=== PATIENT | female | born 1965 | race Caucasian/White ===

== ENCOUNTER 2017-02-19 11:22 | Observation (INO) ==
[2017-02-19] MEDS ORDERED: Nitroglycerin 0.4 MG TAB.SUBL SL ONE (11:47)
[2017-02-19] MEDS ORDERED: Ondansetron 4 MG/2 ML VIAL IVP ONE (11:47)
[2017-02-19] MEDS ORDERED: 0.9 % Sodium Chloride 1,000 ML IVC ONE ×2 (11:49→12:50)
--- NOTE | 2017-02-19 11:52 | Emergency Department Note ---
Disposition Clinical Impression: Tobacco abuse Chest pain Qualifiers: Chest pain type: unspecified Qualified Code(s): R07.9 - Chest pain, unspecified Disposition: Admitted As Inpatient Condition: Fair Referrals: Jatin Mckoy MD [Primary Care Provider] - Forms: ED Satisfaction Letter Chest Pain HPI - General Chief Complaint: ED Chest Pain Stated Complaint: chest pain Time Seen by Provider: 02/19/17 11:36 Source: patient Mode of arrival: ambulatory Limitations: no limitations Vital Signs Reviewed: Yes Nursing Notes Reviewed: Yes - History of Present Illness HPI Narrative: 51-year-old female history of hypertension, diabetes, tobacco use and obesity presents for evaluation of chest pain. Patient notes the chest pain started 45 minutes prior to arrival. Noted be nonexertional retrosternal slightly more left-sided with radiation to her back. Patient denies history of previous. Also notes some numbness and tingling in left arm. Patient was concerned about a heart attack. Patient noted some shortness of breath. Pain worse with deep breathing. Reports nausea vomiting with no diaphoresis. Patient took nitroglycerin in route as well as 4 baby aspirin. Noted some slight relief with nitroglycerin. Patient denies any abdominal pain. No fevers or cough. Denies a history of ACS or stents. States that she has had a stress test done in the remote past. Patient also had a heart catheter performed as well without any clear intervention at that time Severity scale (1-10): 8 - Related Data Home Medications Medication Instructions Recorded Confirmed Aripiprazole [Abilify] 5 mg PO QAM 11/05/15 09/28/16 Diclofenac Sodium [Voltaren] 75 mg PO BID PRN 11/05/15 09/28/16 Duloxetine HCl [Cymbalta] 60 mg PO QAM 11/05/15 09/28/16 Lisinopril [Zestril] 10 mg PO QAM 11/05/15 09/28/16 Metoprolol [Lopressor] 150 mg PO BID 11/05/15 09/28/16 Pravastatin Sodium [Pravachol] 40 mg PO QPM 11/05/15 09/28/16 Ropinirole HCl [Requip] 0.5 mg PO HS 11/05/15 09/28/16 Aspirin [Adult Low Dose Aspirin EC] 81 mg PO DAILY 12/04/15 09/28/16 Gabapentin [Neurontin] 600 mg PO TID 12/04/15 09/28/16 Isosorbide MONOnitrate (24 HR) 30 mg PO DAILY 12/04/15 09/28/16 [Imdur] Furosemide [Lasix] 20 mg PO DAILY PRN 07/23/16 09/28/16 Metolazone [Zaroxolyn] 5 mg PO DAILY 07/23/16 09/28/16 Oxybutynin Chloride [Ditropan Xl] 10 mg PO DAILY 07/23/16 09/28/16 HYDROcodone/Acet 7.5/325 mg [[place] 1 tab PO TID PRN 09/28/16 09/28/16 7.5-325 mg] Oxygen 2 l NS HS PRN 09/28/16 09/28/16 Previous Rx's Medication Instructions Recorded Torsemide [Demadex] 20 mg PO DAILY #5 tablet 08/07/16 Naproxen [Naprosyn] 500 mg PO BID PRN #20 tablet 10/15/16 Allergies Allergy/AdvReac Type Severity Reaction Status Date / Time tramadol Allergy Rash Verified 09/28/16 07:48 All systems ED: reviewed and negative except as stated. Constitutional: Reports: as per HPI. Denies: fever Eyes: Reports: as per HPI ENT ED: Reports: as per HPI Cardiovascular: Reports: as per HPI, chest pain Respiratory: Reports: as per HPI, dyspnea. Denies: cough Gastrointestinal: Reports: as per HPI, nausea, vomiting Genitourinary: Reports: as per HPI Musculoskeletal: Reports: as per HPI Integumentary: Reports: as per HPI Neurological: Reports: as per HPI Psychiatric: Reports: as per HPI Endocrine: Reports: as per HPI Hematological/Lymphatic: Reports: as per HPI Chest Pain PMH - Past Medical History Medical history: Reports: diabetes, hyperlipidemia, hypertension Surgical history: Reports: breast surgery, hysterectomy, other Psychiatric history: Reports: anxiety, depression - Social History Smoking Status: Current every day smoker Alcohol use: Reports: occasionally Drug use: Reports: none Physical Exam - General Limitations: no limitations General appearance: alert, in no apparent distress - Head Head exam: atraumatic, normocephalic, normal inspection - Eye Eye exam: Present: normal appearance, PERRL, EOMI - ENT ENT exam: normal exam, mucous membranes moist - Neck Neck exam: Present: normal inspection, trachea midline - Chest Chest inspection: Present: normal inspection, symmetric chest wall rise, tenderness (Some reproducible tenderness however pain is slightly different. No overlying rash.) - Respiratory Respiratory exam: Present: normal lung sounds bilaterally. Absent: respiratory distress - Cardiovascular Cardiovascular exam: Present: regular rate, normal rhythm - Abdominal Exam Abdominal exam: Present: soft, Non-Tender - Extremities Exam Extremities exam: Present: normal inspection. Absent: pedal edema - Back Exam Back exam: Present: normal inspection. Absent: CVA tenderness (R), CVA tenderness (L) - Neurological Exam Neurological exam: Present: alert, oriented X3 - Skin Skin exam: Present: warm, dry, intact, normal color Course Course Narrative: Patient intubated the treatment area. Patient appears in discomfort. Patient does have risk factors for coronary artery disease. Patient will get a cardiac evaluation including a d-dimer. As the patient is low risk [place] and cannot be PERC out. Patient's pain was also slightly relieved by nitroglycerin. Will trial nitroglycerin in the ER. Chest x-ray, EKG, lab work disposition pending. - Reevaluation(s) Reevaluation #1: Patient seen and examined. Patient notes the pain has improved. Patient's blood pressure did drop slightly to the nitroglycerin. Patient will be admitted to [facility] for further evaluation and monitoring of her cardiac evaluation. Time: 12:50 Vital Signs Temperature 97.8 F 02/19/17 11:30 Pulse Rate 74 02/19/17 11:30 Respiratory Rate 16 02/19/17 11:30 Blood Pressure 108/75 02/19/17 11:30 O2 Sat by Pulse Oximetry 96 02/19/17 11:30 Temperature 97.8 F 02/19/17 11:30 Pulse Rate 74 02/19/17 11:30 Respiratory Rate 16 02/19/17 11:30 Blood Pressure 108/75 02/19/17 11:30 O2 Sat by Pulse Oximetry 96 02/19/17 11:30 Oxygen Delivery Oxygen Delivery Room Air Chest Pain - MDM Narrative Medical decision making narrative: 51-year-old female patients for evaluation of chest pain. Patient notes that the chest pain started 45 minutes prior to arrival. Noted be nonexertional with radiation in the back and numbness and tingling in the left arm. No history of this in the past. Patient has had a cardiology evaluation with catheter and stress test in the remote past but nothing recent. Patient's pain did slightly improve with nitroglycerin. Patient had basic lab work performed including an troponin which was negative for the 45 minutes of nonexertional chest pain. Patient also had a d-dimer slightly elevated however patient's symptoms are less likely pulmonary related. Patient will be admitted to the hospitalist service for further evaluation and monitoring. - Lab Data Lab results reviewed: Yes I reviewed the patient's lab results. Result diagrams: 02/19/17 11:45 02/19/17 11:45 Lab Results 02/19/17 02/19/17 02/19/17 Range/Units 11:45 11:45 11:45 WBC 10.4 (4.3-11.1) K/mcL RBC 5.09 H (3.82-4.97) M/mcL Hgb 13.9 (11.5-15.4) g/dL Hct 43.5 (35.3-44.9) % MCV 85.5 (83.0-100.0) fL MCH 27.3 L (28.0-33.3) pg MCHC 32.0 (31.6-35.5) g/dL RDW 14.7 H (11.5-14.5) % Plt Count 309 (140-400) K/mcL MPV 9.5 (9.4-12.4) fL Immature Gran % 0.7 (0-4) % Seg Neutrophils % 58.0 % Lymphocytes % 27.7 % Monocytes % 7.0 % Eosinophils % 5.4 % Basophils % 1.2 % Neutrophils # 6.1 (1.6-8.9) K/mcL Lymphocytes # 2.9 (0.6-4.6) K/mcL Monocytes # 0.7 (0.0-1.3) K/mcL Eosinophils # 0.6 (0.0-0.6) K/mcL Basophils # 0.1 (0.0-0.2) K/mcL D-Dimer 576 H (0-500) ng/mLFEU Sodium 137 (136-145) mEq/L Potassium 4.3 (3.5-4.5) mEq/L Chloride 99 (98-109) mEq/L Carbon Dioxide 28 (19-29) mEq/L BUN 13 (7-20) mg/dL Creatinine 0.74 (0.57-1.11) mg/dL Est GFR ( Amer) > 60 (> 60) Est GFR (Non-Af Amer) > 60 (> 60) BUN/Creatinine Ratio 18 (6-26) Glucose 75 (70-99) mg/dL Calculated Osmolality 283 (280-300) Calcium 9.1 (8.6-10.8) mg/dL Troponin I (0-0.03) ng/mL 02/19/17 Range/Units 11:45 WBC (4.3-11.1) K/mcL RBC (3.82-4.97) M/mcL Hgb (11.5-15.4) g/dL Hct (35.3-44.9) % MCV (83.0-100.0) fL MCH (28.0-33.3) pg MCHC (31.6-35.5) g/dL RDW (11.5-14.5) % Plt Count (140-400) K/mcL MPV (9.4-12.4) fL Immature Gran % (0-4) % Seg Neutrophils % % Lymphocytes % % Monocytes % % Eosinophils % % Basophils % % Neutrophils # (1.6-8.9) K/mcL Lymphocytes # (0.6-4.6) K/mcL Monocytes # (0.0-1.3) K/mcL Eosinophils # (0.0-0.6) K/mcL Basophils # (0.0-0.2) K/mcL D-Dimer (0-500) ng/mLFEU Sodium (136-145) mEq/L Potassium (3.5-4.5) mEq/L Chloride (98-109) mEq/L Carbon Dioxide (19-29) mEq/L BUN (7-20) mg/dL Creatinine (0.57-1.11) mg/dL Est GFR ( Amer) (> 60) Est GFR (Non-Af Amer) (> 60) BUN/Creatinine Ratio (6-26) Glucose (70-99) mg/dL Calculated Osmolality (280-300) Calcium (8.6-10.8) mg/dL Troponin I 0.00 (0-0.03) ng/mL - Radiology Data Radiology results reviewed: Yes I reviewed the patient's radiology results. Chest X-Ray 02/19/17 11:47 IMPRESSION: No acute cardiopulmonary process. D/ /19/2017 12:18:13 Gianfranco Acosta MD / [email or web address] Interpreting Provider: Gianfranco Acosta MD - EKG Data EKG attestation: Yes I reviewed and interpreted this EKG. EKG shows normal: sinus rhythm Rate: normal Rhythm: NSR [place]/QRS: normal T wave inversions noted in: v1 (Flattening) Interpretation: no acute changes, unchanged when compared to prior tracing (date ) (11/20/16), nonspecific ST-T wave changes Heart Score - Score History: Moderately Suspicious EKG: Normal Age: 45-65 Risk Factors: Equal/Greater than 3 risk factor or history of atherosclerotic disease Troponin: Less than normal limit HEART Score Total: 4 S.B.A.R. - S.B.A.R. Situation: Demographics Assessment: Vital Signs, Course and respsone to treatment, Patient/Family Expectation Recommendation: Barrier(s) to disposition, Recommendation based on pending studies, treatments, or consults S.B.A.RMarci Report Given to: Dr. Aniyah Harrell Repor Time: 12:59
[2017-02-19 12:12] LABS: Basophils # 0.1 K/mcL (0.0-0.2); Basophils % 1.2 %; Eosinophils # 0.6 K/mcL (0.0-0.6); Eosinophils % 5.4 %; Hematocrit 43.5 % (35.3-44.9); Hemoglobin 13.9 g/dL (11.5-15.4); Immature Granulocytes % 0.7 % (0-4); Lymphocytes # 2.9 K/mcL (0.6-4.6); Lymphocytes % 27.7 %; Mean Corpuscular Hemoglobin 27.3 pg (28.0-33.3); Mean Corpuscular Volume 85.5 fL (83.0-100.0); Mean Platelet Volume 9.5 fL (9.4-12.4); Monocytes # 0.7 K/mcL (0.0-1.3); Neutrophils # 6.1 K/mcL (1.6-8.9); Platelet Count 309 K/mcL (140-400); Red Blood Count 5.09 M/mcL (3.82-4.97); Red Cell Distribution Width 14.7 % (11.5-14.5)
[2017-02-19 12:25] LABS: BUN/Creatinine Ratio 18 (6-26); Blood Urea Nitrogen 13 mg/dL (7-20); Calcium 9.1 mg/dL (8.6-10.8); Carbon Dioxide 28 mEq/L (19-29); Chloride 99 mEq/L (98-109); Glucose 75 mg/dL (70-99); Osmolality,Calculated 283 (280-300); Potassium 4.3 mEq/L (3.5-4.5); Sodium 137 mEq/L (136-145); eGFR For African Americans > 60 (> 60); eGFR For Non-African Americans > 60 (> 60)
--- NOTE | 2017-02-19 12:38 | Emergency Department Note ---
START Narrative - START START: I examined this patient and my medical decision-making was reviewed with the MACHINE CELL TUBER/PA/Advanced Practice Nurse/Resident Physician. I agree with the documented findings, disposition and treatment plan as described except to the extent set forth below. ED attending note: Patient seen with emergency medicine resident Dr. Miles. Please see a copy of his note for details of the H&P, evaluation, management and disposition of this patient. We independently had [id number] contact with the patient Briefly: 21-year-old female hard score of 4 presents with chest pain heavy smoker. D-dimer slightly elevated at 570. Chest x-ray EKG read by radiology as no acute pulmonary disease and no acute ischemic changes on the EKG. Patient be admitted for ACS workup. Feel her risk of PE is still low. Awaiting callback from hospitalist for admission.
[2017-02-19] MEDS ORDERED: Ondansetron 4 MG/2 ML VIAL IVP PRN (13:16)
[2017-02-19] MEDS ORDERED: Naloxone 0.4 MG/ML INJ IVP PRN (13:16)
[2017-02-19] MEDS ORDERED: Nitroglycerin 0.4 MG TAB.SUBL SL PRN (13:23)
[2017-02-19] MEDS ORDERED: Dextrose Gel 15 GM PO PRN ×2 (13:30)
[2017-02-19] MEDS ORDERED: D5% in Water 1,000 ML IVC PRN (13:30)
[2017-02-19] MEDS ORDERED: *HR* Dextrose 50 % in Water (Syg) 50 ML SYRINGE IVP PRN (13:30)
--- NOTE | 2017-02-19 13:38 | Internal Med History&Physical ---
<Evan Gomez - Last Filed: 02/19/17 14:06> Date of Encounter: 02/19/17 Time of Encounter: 13:00 Assessment and Plan (1) Chest pain Current visit: Yes Status: Acute Assess: Ms. Johnston presents with chief complaint of chest pain that she states feels like a pressure and sharp pain that radiates to her left neck and left arm. She states this began at 11:00 today. She also reports she has had similar pain like this previously but not to this extent or level of pain. Patient is currently followed by Dr. Beaulieu. Plan: Continuous cardiac telemetry Nuclear stress test ordered Repeat EKG Nitroglycerin PRN ordered Continue aspirin therapy Continue Lopressor Continue Lisinopril Lipitor 20 mg daily ordered Heparin 5,000 units SQ Q8 ordered at DVT prophylaxis Possible cardiology consult based on results of nuclear stress test Monitor patient and vital signs Follow-up labs ordered, including D-Dimer Qualifiers: Chest pain type: unspecified Qualified Code(s): R07.9 - Chest pain, unspecified (2) Exertional dyspnea Current visit: Yes Status: Acute Assess: Patient presents with shortness of breath related to chest pain. Patient states shortness of breath is with or without exertion. Patient uses home oxygen PRN and states she is supposed to use CPAP at night refuses due to anxiety. Plan: O2 @ 2L ordered with titration if SpO2 <92% Monitor SpO2 and vital signs 40 mg Lasix daily ordered for lower extremity edema Falls precautions and up with assist only (3) Hyperlipidemia Current visit: Yes Status: Chronic Assess: Patient presents with history of chronic hyperlipidemia. Plan: Lipid panel ordered Lipitor 20 mg daily ordered Continue Pravastatin Follow-up labs ordered Qualifiers: Hyperlipidemia type: unspecified Qualified Code(s): E78.5 - Hyperlipidemia , unspecified (4) Hypertension Current visit: Yes Status: Chronic Assess: Patient presents with history of chronic hypertension. Plan: Continue Lopressor Continue Lisinopril Monitor patient's vital signs Qualifiers: Hypertension type: essential hypertension Qualified Code(s): I10 - Essential (primary) hypertension (5) Tobacco abuse Current visit: Yes Status: Chronic Assess: Patient presents with history of chronic tobacco abuse. Plan: Tobacco cessation education provided to patient Nicotine patch 14 mg ordered (6) DVT prophylaxis Current visit: Yes Status: Acute Assess: Patient to receive DVT prophylaxis due to current chest pain, cardiac risk factors, and inpatient bed rest status. Plan: Heparin 5,000 units SQ Q8 ordered Internal Medicine - H&P: HPI Chief complaint: Chest pain w/SOB Admitted From: Emergency Dept Plans for Post Hospital Care: Home History of present illness: Ms. Johnston is a 51 year old female presents from the ED with chief complaint of chest pain that she states feels like a pressure and sharp pain that radiates to her left neck and left arm. She states this began at 11:00 today. She also reports she has had similar pain like this previously but not to this extent or level of pain. Mrs. Johnston reports that she is also short of breath and has been experiencing bilateral pedal edema 2-3x per week. Patient is currently on 20 mg of Lasix daily. He states that chest pain is nonexertional in nature and is somewhat relieved with nitroglycerin. She also reports she has had nausea and vomiting with chest pain and her reports she became syncopal in the car on the way to the ED. Patient has a history of diabetes, hyperlipidemia, hypertension, and previous chest pain. Patient's current d-dimer level is 576. Initial troponin is 0.00. Patient had heart catheterization performed 2 years ago with no stent placement. Patient also had nuclear stress test approximately 1 year ago. Patient is followed by Dr. Beaulieu. Patient is a current smoker stating she smokes 1 pack per day. Patient also reports constant back pain related to back surgery which radiates down to her right leg. Patient to be admitted as observation status with continuous cardiac telemetry, troponins trended 2 nuclear stress test ordered for 02/20/17, bilateral blood pressures, nitroglycerin when necessary, and supplemental oxygen administration. Possible cardiology consult will be based on results of nuclear stress test. Patient to be monitored closely. Past Med Surg Social Fam HX - Past Medical History Medical history: diabetes, hyperlipidemia, hypertension Psychiatric history: anxiety, depression - Past Surgical History Surgical History: breast surgery, hysterectomy, other - Social History Smoking Status: Current every day smoker Packs per day: 1 PPD Smokeless Tobacco Status: No Alcohol use: occasionally Drug use: none Occupational status: unemployed Current living situation: Home, With Family Activity Level: Uses cane/walker Recent Out of Country Travel Within the Last 8 Weeks: No Exposure or Possible Exposure to Illness During Travel: No - Family History Father Race: Family Member Ethnicity: Non- Living Status: Age at : 77 Cause of : Non-EtOH cirrhosis Hx Family GI Disorders: Yes (non-alcoholic cirrhosis) Mother Race: Family Member Ethnicity: Non- Living Status: Still Living Hx Family Cardiac Disorders: Yes (HTN, Afib) Brother Race: Family Member Ethnicity: Non- Living Status: Still Living Hx Family Respiratory Disorders: Yes (COPD) Hx Family Endocrine Disorder: Yes (DM) Internal Medicine - H&P: Meds Aripiprazole [Abilify] 5 mg PO QAM 11/05/15 [History] Duloxetine HCl [Cymbalta] 60 mg PO QAM 11/05/15 [History] Lisinopril [Zestril] 10 mg PO QAM 11/05/15 [History] Metoprolol [Lopressor] 150 mg PO BID 11/05/15 [History] Pravastatin Sodium [Pravachol] 40 mg PO QPM 11/05/15 [History] Ropinirole HCl [Requip] 0.5 mg PO HS 11/05/15 [History] Aspirin [Adult Low Dose Aspirin EC] 81 mg PO DAILY 12/04/15 [History] Gabapentin [Neurontin] 600 mg PO TID 12/04/15 [History] Isosorbide MONOnitrate (24 HR) [Imdur] 30 mg PO DAILY 12/04/15 [History] Furosemide [Lasix] 20 mg PO DAILY PRN 07/23/16 [History] Metolazone [Zaroxolyn] 5 mg PO DAILY 07/23/16 [History] Oxybutynin Chloride [Ditropan Xl] 10 mg PO DAILY 07/23/16 [History] Oxygen 2 l NS HS PRN 09/28/16 [History] HYDROcodone/Acet 5/325 mg [[place] 5-325 mg] 1 tab PO Q6H PRN 02/19/17 [History] Omeprazole [PriLOSEC] 40 mg PO DAILY 02/19/17 [History] Potassium Chloride [K-Tab ER] 10 meq PO DAILY 02/19/17 [History] Trazodone HCl 250 mg PO HS 02/19/17 [History] metFORMIN [Glucophage] 1,000 mg PO BID 02/19/17 [History] Allergies tramadol Allergy (Verified 09/28/16 07:48) Rash All Systems PM: A 10-system review of systems was performed and is negative for pertinent findings except as documented above in the HPI. - Constitutional Constitutional: no chills, no fever(s), no night sweats - EENT Eyes: no change in vision, no discharge, no pain, no photophobia Ears: no ear discharge, no ear pain, no tinnitus Nose, mouth and throat: no dysphagia, no nasal discharge, no neck pain, no sore throat - Breasts Breasts: as per HPI - Cardiovascular Cardiovascular ROS IM: as per HPI, chest pain, dyspnea, dyspnea on exertion, edema, syncope - Respiratory Respiratory: dyspnea, dyspnea on exertion - Gastrointestinal Gastrointestinal: no abdominal pain, no diarrhea, no hematemesis, no hematochezia, no melena, no nausea, no vomiting - Genitourinary Genitourinary: no change in urinary stream, no dysuria, no flank pain, no hematuria Menstruation: as per HPI - Musculoskeletal Musculoskeletal ROS IM: as per HPI, back pain, no numbness, no tingling - Integumentary Integumentary IM: no rash, no unusual bruising - Neurological Neurological ROS: as per HPI, numbness, tingling, no confusion, no convulsions, no focal weakness, no tremor(s) - Psychiatric Psychiatric: as per HPI - Endocrine Endocrine IM: as per HPI - Hematologic/Lymphatic Hematologic/Lymphatic: no easy bruising - Allergic/Immunologic Allergic/Immunologic: as per HPI - Constitutional Vitals: Temp Pulse Resp BP Pulse Ox 97.8 F 74 16 108/75 96 02/19/17 11:30 02/19/17 11:30 02/19/17 11:30 02/19/17 11:30 02/19/17 11:30 General appearance: Present: cooperative, mild distress, A&O X 3, morbidly obese , pleasant, answers questions appropriately - Head Head exam: Present: atraumatic, normocephalic - Eye Eye exam: Present: PERRL, conjuntiva pink, sclera anicteric Pupils: Present: PERRL - ENT ENT exam: Present: normal exam, normal external ear exam - Neck Neck exam general surgery: Present: supple, trachea midline. Absent: lymphadenopathy - Respiratory Respiratory exam: Present: CTAB. Absent: accessory muscle use, rales, rhonchi, wheezes - Cardiovascular Cardiovascular exam: Present: RRR, +S1, +S2. Absent: diastolic murmur, gallop, rubs, systolic murmur - GI/Abdominal GI/Abdominal exam: Present: normal bowel sounds, soft, no peritoneal signs. Absent: distended, tenderness - Rectal Rectal exam: Present: deferred - Additional comments: exam deferred. - Extremities Exam Extremities exam: Present: normal inspection, warm, radial pulses palpable and symetrical. Absent: calf tenderness, cyanotic, pedal edema - Back Exam Back exam: Present: normal inspection, tenderness - Neurological Exam Neurological exam: Present: CN II-XII intact, oriented X3, no focal deficits. Absent: pronater drift, facial droop, speech deficit - Psychiatric Psychiatric exam: Present: normal affect, normal mood - Skin Skin exam: Present: dry, intact Internal Med - H&P Results - Labs CBC & Chem 7: 02/19/17 11:45 02/19/17 11:45 - EKG Data EKG shows normal: sinus rhythm - EKG Data Prior EKG available for review: yes When compared to previous EKG: there is no significant change EKG comments: 02/19/17 13:46 EKG dated 11/20/16 shows sinus rhythm with low QRS voltage in precordial leads [ QRS deflection < 1.0 mV in chest leads] EKG dated 02/19/17 shows sinus rhythm with low QRS voltage in precordial leads [ QRS deflection < 1.0 mV in chest leads] - Diagnostic Studies Chest x-ray Additional comments: 1-View CXR of chest dated 02/19/17 shows cardiomediastinal silhouette is normal in size. Lungs are clear. No pleural effusion or pneumothorax is present. Overall Impression: No acute cardiopulmonary process. <Florentin Hankins H - Last Filed: 02/19/17 14:09> Date of Encounter: 02/19/17 Internal Medicine - H&P: HPI History of present illness: Ms. Johnston is a 51 year old female All Systems PM: A 10-system review of systems was performed and is negative for pertinent findings except as documented above in the HPI. - Constitutional Vitals: Temp Pulse Resp BP Pulse Ox 97.8 F 74 16 108/75 96 02/19/17 11:30 02/19/17 11:30 02/19/17 11:30 02/19/17 11:30 02/19/17 11:30 Internal Med - H&P Results - Labs CBC & Chem 7: 02/19/17 11:45 02/19/17 11:45 - Attending Attestation 1. Chest pain Continue nitroglycerin as needed, morphine as needed, aspirin, statin Follow troponins, lipid panel in the morning, telemetry Schedule stress test for the morning and consider cardiology consult if abnormal findings 2. Diabetes type 2, continue insulin sliding scale 3. Hypertension, stable 4. Hyperlipidemia 5. Tobacco use, smoking cessation counseling, cooking patch Time spent on this admission 40 minutes. I examined this patient and my medical decision-making was reviewed with the MILLWRIGHT INSTRUCTOR/PA/Advanced Practice Nurse/Resident Physician. I agree with the documented findings, disposition and treatment plan as described except to the extent set forth below.
--- NOTE | 2017-02-19 14:02 | Event Note ---
Date of Encounter: 02/19/17 Time of Encounter: 14:00 1. Chest pain Continue nitroglycerin as needed, morphine as needed, aspirin, statin Follow troponins, lipid panel in the morning, telemetry Schedule stress test for the morning and consider cardiology consult if abnormal findings 2. Diabetes type 2, continue insulin sliding scale 3. Hypertension, stable 4. Hyperlipidemia 5. Tobacco use, smoking cessation counseling, cooking patch Time spent on this admission 40 minutes.
[2017-02-19] MEDS: Gabapentin 300 MG CAPSULE PO SCH ×2 (15:09→22:04)
[2017-02-19] MEDS: *HR* Heparin 5,000 UNIT/ML VIAL SQ SCH ×2 (15:09→22:04)
[2017-02-19] MEDS: Insulin LISPRO 300 UNITS/3 ML VIAL SQ SCH ×2 (17:17→22:05)
[2017-02-19] MEDS: *HR* HYDROcodone/Acet 5/325 mg TABLET PO PRN (17:38)
[2017-02-19] MEDS: traZODone 50 MG TABLET PO SCH (22:03)
[2017-02-19] MEDS: rOPINIRole 0.25 MG TABLET PO SCH (22:04)
[2017-02-19] MEDS: Metoprolol 100 MG TABLET PO SCH (22:05)
[2017-02-20 01:05] LABS: Basophils # 0.1 K/mcL (0.0-0.2); Basophils % 1.1 %; Eosinophils # 0.5 K/mcL (0.0-0.6); Eosinophils % 6.3 %; Hematocrit 40.5 % (35.3-44.9); Hemoglobin 12.7 g/dL (11.5-15.4); Immature Granulocytes % 0.6 % (0-4); Lymphocytes # 2.2 K/mcL (0.6-4.6); Mean Corpuscular HGB Conc 31.4 g/dL (31.6-35.5); Mean Corpuscular Hemoglobin 26.8 pg (28.0-33.3); Mean Corpuscular Volume 85.4 fL (83.0-100.0); Mean Platelet Volume 9.4 fL (9.4-12.4); Monocytes # 0.4 K/mcL (0.0-1.3); Monocytes % 5.3 %; Neutrophils # 4.8 K/mcL (1.6-8.9); Platelet Count 264 K/mcL (140-400); Red Blood Count 4.74 M/mcL (3.82-4.97); Red Cell Distribution Width 14.7 % (11.5-14.5); Segmented Neutrophils % 59.7 %
[2017-02-20 01:21] LABS: Alanine Aminotransferase 38 Units/L (0-55); Albumin 3.4 g/dL (3.5-5.0); Albumin/Globulin Ratio 1.1 (1.1-2.2); Alkaline Phosphatase 76 Units/L (38-126); Aspartate Amino Transferase 21 Units/L (5-34); BUN/Creatinine Ratio 15 (6-26); Bilirubin,Total 0.5 mg/dL (0.2-1.2); Blood Urea Nitrogen 12 mg/dL (7-20); Calcium 8.7 mg/dL (8.6-10.8); Carbon Dioxide 30 mEq/L (19-29); Chloride 103 mEq/L (98-109); Chol/HDL Ratio 5.9 (0-4.9); Cholesterol 164 mg/dL (< 200); Globulin 3.2 g/dL (2.4-3.5); Glucose 124 mg/dL (70-99); HDL Cholesterol 28 mg/dL (40-59); LDL Cholesterol,Calculated 77 mg/dL (0-99); Magnesium 1.7 mg/dL (1.6-2.6); Osmolality,Calculated 291 (280-300); Potassium 4.1 mEq/L (3.5-4.5); Sodium 140 mEq/L (136-145); Total Protein 6.6 g/dL (6.0-8.3); Triglycerides 296 mg/dL (< 150); eGFR For African Americans > 60 (> 60); eGFR For Non-African Americans > 60 (> 60)
[2017-02-20 01:22] LABS: Activated Partial Thrombo Time 28.8 Seconds (26.0-36.0)
[2017-02-20] MEDS: *HR* HYDROcodone/Acet 5/325 mg TABLET PO PRN ×2 (05:17→18:29)
[2017-02-20] MEDS: *HR* Heparin 5,000 UNIT/ML VIAL SQ SCH ×3 (05:18→21:42)
[2017-02-20] MEDS ORDERED: Regadenoson 0.4 MG/5 ML SYRINGE IVP ONE (07:00)
[2017-02-20] MEDS: Insulin LISPRO 300 UNITS/3 ML VIAL SQ SCH ×4 (08:36→21:34)
[2017-02-20] MEDS: Gabapentin 300 MG CAPSULE PO SCH ×3 (09:48→21:41)
[2017-02-20] MEDS: Metoprolol 100 MG TABLET PO SCH ×2 (09:48→21:41)
[2017-02-20] MEDS: Furosemide 40 MG/4 ML VIAL IVP SCH (09:48)
[2017-02-20] MEDS: ARIPiprazole 5 MG TABLET PO SCH (09:49)
[2017-02-20] MEDS: Isosorbide MONOnitrate (24 HR) 60 MG TAB.ER.24H PO SCH (09:49)
[2017-02-20] MEDS: Aspirin 81 MG TAB.CHEW PO SCH (09:49)
[2017-02-20] MEDS: metOLazone 5 MG TABLET PO SCH (09:49)
[2017-02-20] MEDS ORDERED: Perflutren Lipid Microsphere 1.3 ML in 0.9 % Sodium Chloride 8.7 ML IVP ONE (13:09)
[2017-02-20] MEDS: Nicotine 14 MG PATCH.TD24 TD SCH (16:21)
--- NOTE | 2017-02-20 16:51 | Internal Med Progress Note ---
Date of Encounter: 02/20/17 Time of Encounter: 11:10 - Assessment and plan (1) Chest pain Current Visit: No Status: Acute Assessment and plan: Patient reports substernal and left chest pain that began yesterday 45 minutes prior to arrival while she was talking with a family member. It was nonexertional. Today during exam, chest pain remains at about 8 out of 10 and constant and without radiation. She says it is sometimes worse with deep inspiration. Patient requested an echocardiogram be done again today. Was a limited study due to one being done in June 2016. LVEF remains preserved at 60-65%. There is normal LV size and systolic function. Prior echo done in June 2016 findings were the same. Troponins were negative 3. Patient had LHC in November 2015. VESSELS were free of disease other than proximal LAD, which has 20% stenosis. Continue telemetry Continue home medications Stress results pending Consult cardiology if stress results concerning Qualifiers: Chest pain type: precordial pain Qualified Code(s): R07.2 - Precordial pain (2) DVT prophylaxis Current Visit: Yes Status: Acute Assessment and plan: Heparin subcutaneous daily (3) Hypertension Current Visit: Yes Status: Chronic Assessment and plan: Chronic. Continue home medications. Qualifiers: Hypertension type: essential hypertension Qualified Code(s): I10 - Essential (primary) hypertension (4) Morbid obesity Current Visit: No Status: Chronic Assessment and plan: Chronic. Lifestyle changes. Qualifiers: Obesity type: due to excess calories Qualified Code(s): E66.01 - Morbid ( severe) obesity due to excess calories (5) Hyperlipidemia Current Visit: Yes Status: Chronic Assessment and plan: Chronic. Continue medications. Qualifiers: Hyperlipidemia type: unspecified Qualified Code(s): E78.5 - Hyperlipidemia , unspecified - Time Spent With Patient less than 15 minutes - Subjective Interval history: Patient was admitted to observation for history of left and retrosternal chest pain that began 45 minutes prior to her arrival in the emergency department. She said it is constant and it began yesterday while she was sitting talking with family members. It was not related to exertion. She said she did have some mild shortness of breath but there was no nausea, vomiting, diaphoresis. Pain was worse with deep inspiration. She is still having the pain this morning and rates it an 8 out of 10 and constant. Patient is requesting an echocardiogram be done. She has completed day 1 of a 2 day stress test. I will consult cardiology if stress test is concerning tomorrow. - Constitutional Vitals: Temp Pulse Resp BP Pulse Ox 98.4 F 75 16 117/78 95 02/20/17 15:29 02/20/17 15:29 02/20/17 15:29 02/20/17 15:29 02/20/17 15:29 General appearance: Present: cooperative, mild distress, A&O X 3, morbidly obese , pleasant, no acute distress, answers questions appropriately - Head Head exam: Present: normal inspection - Eye Eye exam: Present: normal appearance, conjuntiva pink - ENT ENT exam: Present: mucous membranes moist, normal exam - Neck Neck exam general surgery: Present: normal inspection. Absent: lymphadenopathy , tenderness - Respiratory Respiratory exam: Present: CTAB. Absent: accessory muscle use, chest wall tenderness, rales, rhonchi, stridor, wheezes - Extremities Exam Extremities exam: Present: normal capillary refill, normal inspection, warm, radial pulses palpable and symetrical. Absent: tenderness - Neurological Exam Neurological exam: Present: alert, oriented X3, no focal deficits, strengths equal and symetr throughout Internal Medicine: Result - Labs CBC & Chem 7: 02/20/17 00:37 02/20/17 00:37 Labs: Short CBC 02/20/17 Range/Units 00:37 WBC 8.1 (4.3-11.1) K/mcL Hgb 12.7 (11.5-15.4) g/dL Hct 40.5 (35.3-44.9) % Plt Count 264 (140-400) K/mcL Neutrophils # 4.8 (1.6-8.9) K/mcL BMP 02/20/17 00:37 Sodium 140 Potassium 4.1 Chloride 103 Carbon Dioxide 30 H BUN 12 Creatinine 0.82 Glucose 124 H Calcium 8.7 Cardiac Enzymes 02/19/17 02/20/17 Range/Units 18:15 00:37 Troponin I 0.00 0.01 (0-0.03) ng/mL Liver Function 02/20/17 Range/Units 00:37 Total Bilirubin 0.5 (0.2-1.2) mg/dL AST 21 (5-34) Units/L ALT 38 (0-55) Units/L Alkaline Phosphatase 76 (38-126) Units/L Albumin 3.4 L (3.5-5.0) g/dL - ABG Interpretation ABG results: PT/INR, D-dimer PT 11.0 Seconds (9.4-12.1) 02/20/17 00:37 D-Dimer 539 ng/mLFEU (0-500) H 02/20/17 00:37 Consult Discharge Plan - Plan Referrals: Jatin Mckoy MD [Primary Care Provider] -
[2017-02-20] MEDS: traZODone 50 MG TABLET PO SCH (21:40)
[2017-02-20] MEDS: rOPINIRole 0.25 MG TABLET PO SCH (21:41)
[2017-02-21] MEDS: *HR* HYDROcodone/Acet 5/325 mg TABLET PO PRN ×3 (03:45→20:54)
[2017-02-21] MEDS: *HR* Heparin 5,000 UNIT/ML VIAL SQ SCH ×3 (05:44→20:56)
[2017-02-21] MEDS: Insulin LISPRO 300 UNITS/3 ML VIAL SQ SCH ×4 (07:53→20:56)
--- NOTE | 2017-02-21 12:46 | Nuclear Medicine Stress Report ---
Regadenoson Nuclear 2 Name: Evelin Johnston Date of Study: 02/20/2017 Date: 1965 Ht: 62.0 in Medical Record#: [id number] Age: 51 Wt: 255.0 lb Gender: Female Order #: [id number] Location: [facility] Room: [facility] Supervising Provider: Raheem Gonzalez CNP Reading Physician: Kathryn Rivas DO Ordering Physician: Yenni Gaston CNP Primary Care Physician: Jatin Mckoy M.D. Stress Technologist: Silke Estrada, ASSISTANT CUSTOMER SERVICE MANAGER, CCT, CPFT Ballistics Professor: Sukhwinder Iverson Indications: Chest Pain Impression: Perfusion imaging was negative for ischemia or infarct. Pharmacologic ECG was negative for ischemia at the level of heart rate achieved. Patient had 9/10 chest pain prior to stress which persistent unchanged during stress. Gated EF = >70%. History: Hypertension Diabetes Hypercholesteremia History of Smoking Stress Test Summary: Stress Test Type: Pharmacologic Regadenoson 0.4mg/5ml given IV Baseline Information: Initial Heart Rate: 106 Blood Pressure: 116/84 Stress Information: Stress Time: 4 min sec Test Terminated Due to (primary): As per protocol Maximum Blood Pressure: 146/86 Maximum Heart Rate: 126 Percent Maximum Heart Rate Achieved: 75 Double Product: [id number] METS Reached: 1 Symptoms: Shortness of breath Nuclear Summary: SPECT myocardial perfusion imaging using Tc99m Sestamibi given intravenously was performed at rest and following cardiac stress testing. The resting images were obtained following initial dose of 20.3 mCi. Following stress an additional dose of 34.4 mCi was given at peak exercise or 30 seconds post regadenoson infusion. Medication Given: Time Medication Dose Units Route Findings: Stress Note * Resting ECG demonstrated sinus rhythm. * Pharmacologic stress ECG is negative for ischemia at level of heart rate achieved. * No arrhythmias were noted during stress. * Patient had 9/10 chest pain prior to study which persisted unchanged during the study. Hemodynamic responses * Normal hemodynamic responses to pharmacologic stress. Study Quality * Study quality was fair. Gated EF > 70% * Gated EF > 70%. Left Ventricle * The left ventricle is not dilated. NORMALS * Normal wall motion. * Normal segmental perfusion in stress. * Normal Segmental Perfusion in rest. TID * No evidence of transient ischemic dilatation. Lung Uptake * There is no evidence of increase lung uptake. Updated by Kathryn Rivas on 02/21/2017 12:40:42 PM electronically signed on 02/21/2017 12:42:07 PM with status of Final
[2017-02-21] MEDS: Nicotine 14 MG PATCH.TD24 TD SCH (12:53)
[2017-02-21] MEDS: metOLazone 5 MG TABLET PO SCH (12:53)
[2017-02-21] MEDS: ARIPiprazole 5 MG TABLET PO SCH (12:53)
[2017-02-21] MEDS: Aspirin 81 MG TAB.CHEW PO SCH (12:54)
[2017-02-21] MEDS: Isosorbide MONOnitrate (24 HR) 60 MG TAB.ER.24H PO SCH (12:54)
[2017-02-21] MEDS: Gabapentin 300 MG CAPSULE PO SCH ×3 (12:54→20:54)
[2017-02-21] MEDS: Metoprolol 100 MG TABLET PO SCH ×2 (12:55→20:53)
[2017-02-21] MEDS: Furosemide 40 MG/4 ML VIAL IVP SCH (12:55)
--- NOTE | 2017-02-21 15:00 | Discharge Summary ---
Date of Encounter: 02/22/17 Time of Encounter: 09:40 - Discharge Diagnosis (1) Chest pain Priority: Primary Status: Acute Comments: Patient continues to report 5 out of 6 left chest pressure with radiation to left shoulder and left upper arm. She says she is dyspneic on exertion and pain increases with exertion when she walks from her bed to the bathroom. She says the pain becomes worse with movement and she denies nausea vomiting or diaphoresis. Pain is not reproducible. Lungs are clear anteriorly and posteriorly patient denies cough. Patient requested an echocardiogram yesterday due to family history of MD and cardiac disease. Showed an LVEF of 6065% and normal LV size and systolic function. This is a limited study. Pt completed her 2 day stress test today. Perfusion imaging was negative for ischemia or infarct gated EF is greater than 70%. Due to patient still having continued pain that does not appear to be musculoskeletal or pleuritic, cardiology has been consulted. Qualifiers: Chest pain type: precordial pain Qualified Code(s): R07.2 - Precordial pain (2) Hypertension Priority: Secondary Status: Chronic Comments: Blood pressure has been well controlled inpatient. Continue home medications upon discharge. Qualifiers: Hypertension type: essential hypertension Qualified Code(s): I10 - Essential (primary) hypertension (3) Morbid obesity Priority: Secondary Status: Chronic Comments: Chronic. Lifestyle changes. Qualifiers: Obesity type: due to excess calories Qualified Code(s): E66.01 - Morbid ( severe) obesity due to excess calories (4) Hyperlipidemia Priority: Secondary Status: Chronic Comments: Chronic. Continue home medication. Qualifiers: Hyperlipidemia type: unspecified Qualified Code(s): E78.5 - Hyperlipidemia , unspecified (5) DVT prophylaxis Priority: Secondary Status: Acute Comments: Subcutaneous heparin daily. Patient is also ambulatory. - Discharge Medications Prescriptions: Ibuprofen [Motrin] 600 mg PO BID PRN #15 tab PRN Reason: Pain Home Medications: Aripiprazole [Abilify] 5 mg PO QAM 11/05/15 [History] Duloxetine HCl [Cymbalta] 60 mg PO QAM 11/05/15 [History] Lisinopril [Zestril] 10 mg PO QAM 11/05/15 [History] Metoprolol [Lopressor] 150 mg PO BID 11/05/15 [History] Pravastatin Sodium [Pravachol] 40 mg PO QPM 11/05/15 [History] Ropinirole HCl [Requip] 0.5 mg PO HS 11/05/15 [History] Aspirin [Adult Low Dose Aspirin EC] 81 mg PO DAILY 12/04/15 [History] Gabapentin [Neurontin] 600 mg PO TID 12/04/15 [History] Isosorbide MONOnitrate (24 HR) [Imdur] 30 mg PO DAILY 12/04/15 [History] Furosemide [Lasix] 20 mg PO DAILY PRN 07/23/16 [History] Metolazone [Zaroxolyn] 5 mg PO DAILY 07/23/16 [History] Oxybutynin Chloride [Ditropan Xl] 10 mg PO DAILY 07/23/16 [History] Oxygen 2 l NS HS PRN 09/28/16 [History] HYDROcodone/Acet 5/325 mg [[place] 5-325 mg] 1 tab PO Q6H PRN 02/19/17 [History] Omeprazole [PriLOSEC] 40 mg PO DAILY 02/19/17 [History] Potassium Chloride [K-Tab ER] 10 meq PO DAILY 02/19/17 [History] Trazodone HCl 250 mg PO HS 02/19/17 [History] metFORMIN [Glucophage] 1,000 mg PO BID 02/19/17 [History] Ibuprofen [Motrin] 600 mg PO BID PRN #15 tab 02/22/17 [Rx] Allergies/Adverse Reactions: Allergies tramadol Allergy (Verified 09/28/16 07:48) Rash Procedures/tests Complete & Pending: Procedures Performed prior 72 hours Category Date Time Status NM larry perf SPECT multi [NM] Routine Exams 02/19/17 13:29 Taken EV limited echo w enhance Routine Y 02/20/17 12:08 Completed SP pharm nuclear stress Routine Y 02/19/17 13:28 Completed Date of admission: 02/19/17 13:15 Primary care physician: Jatin Mckoy MD Consults: 02/19/17 13:30 Consult to Hot Roll Inspector [CONS] Routine Comment: Reason for Consult: Uncontrolled diabetes 02/21/17 14:25 Consult to Cardiology [CONS] Routine Comment: Consulting Provider: [facility] Reason for Consult: chest pain Call Completed: No Discharging clinician: Yenni Gaston Anticipated date of discharge: 02/21/17 - Patient Status Disposition: Home, Self-Care Condition: Good Functional capacity at discharge: independent ambulation Overall status at discharge: patient is back to baseline - Discharge Instructions Follow Up With: Jatin Mckoy MD [Primary Care Provider] - Additional Instructions: Please follow up with your primary care physician in 1-2 weeks for a recheck. Resume your home medications. You may take the Ibuprofen up to 2 times daily for chest wall pain. Try relaxation techniques for stress reduction. Return to the ER as needed for any new or concerning symptoms. - Diet and Activity Activity: increase activity as tolerated Diet: advance to your usual diet Hospital course: Mrs. Johnston is a 51-year-old female with a history of hypertension, hyperlipidemia, morbid obesity. She presented to the emergency department on February 19 for complaint of chest pressure that radiates to the left neck, shoulder and left arm. Begin the day of admission, and although she has had this pain in the past, she has never had this extensively. She says that she reports shortness of breath with exertion. She tells me that the chest pressure becomes worse with exertion while she is up moving about the room. The pressure has been constant since admission. Patient had a 2 day stress test that was negative for ischemia or infarct with a gated EF greater than 70%. She had 9 out of 10 chest pain prior to the stress that did not change with the stress test. Patient also requested an echocardiogram while she was here due to concern over a family history of MD and cardiac disease. It was a limited study and showed an LVEF of 60-65% and normal LV size and systolic function. Her troponins were negative and her EKG was normal sinus rhythm. Patient discloses today the chest pain most likely is due to anxiety. She said that she has a lot of stuff going on at home and has had this chest pressure in the past when she has had anxiety. She said that she sees a psychiatrist to already prescribes medications. She reports that she is taking gabapentin for a mood stabilizer. The chest pressure is not reproducible with palpation. Have offered her ibuprofen 800 mg for home for possible chest wall pain. Her lungs are clear anteriorly and posteriorly, S1-S2 is heard without gallops, clips, or murmurs. Peripheral pulses are +2 in both upper and lower extremities. Patient has +1 to +2 nonpitting edema that appears about the same since arrival. She says this is normal for her. Patient's vital signs have been steady, there is no hypertension or tachycardia. Chest stable and appropriate for discharge. - Time Spent with Patient Total time spent providing and/or coordinating discharge services: - Constitutional Vitals: Temp Pulse Resp BP Pulse Ox 97.9 F 67 16 143/85 92 02/21/17 12:13 02/21/17 12:13 02/21/17 12:13 02/21/17 12:13 02/21/17 12:13 General appearance: Present: cooperative, mild distress, A&O X 3, morbidly obese , pleasant, no acute distress, answers questions appropriately - Head Head exam: Present: normal inspection - Eye Eye exam: Present: normal appearance, conjuntiva pink - ENT ENT exam: Present: mucous membranes moist, normal exam - Respiratory Respiratory exam: Present: CTAB. Absent: chest wall tenderness, rales, respiratory distress, rhonchi, stridor, wheezes - Cardiovascular Cardiovascular exam: Present: RRR, +S1, +S2. Absent: clicks, diastolic murmur, gallop, systolic murmur - GI/Abdominal GI/Abdominal exam: Present: soft. Absent: distended, hernia, hepatomegaly, tenderness - Extremities Exam Extremities exam: Present: normal capillary refill, warm, radial pulses palpable and symetrical. Absent: pedal edema, tenderness - Neurological Exam Neurological exam: Present: alert, oriented X3, no focal deficits. Absent: facial droop, speech deficit
--- NOTE | 2017-02-21 17:41 | Internal Med Progress Note ---
Date of Encounter: 02/21/17 Time of Encounter: 09:45 - Assessment and plan (1) Chest pain Current Visit: No Status: Acute Assessment and plan: Patient continues to report 5 out of 6 left chest pressure with radiation to left shoulder and left upper arm. She says she is dyspneic on exertion and pain increases with exertion when she walks from her bed to the bathroom. She says the pain becomes worse with movement and she denies nausea vomiting or diaphoresis. Pain is not reproducible. Lungs are clear anteriorly and posteriorly patient denies cough. Patient requested an echocardiogram yesterday due to family history of NC and cardiac disease. Showed an LVEF of 6065% and normal LV size and systolic function. This is a limited study. Pt completed her 2 day stress test today. Perfusion imaging was negative for ischemia or infarct gated EF is greater than 70%. Due to patient still having continued pain that does not appear to be musculoskeletal or pleuritic, cardiology has been consulted and they will see her in the morning. Qualifiers: Chest pain type: precordial pain Qualified Code(s): R07.2 - Precordial pain (2) Hypertension Current Visit: Yes Status: Chronic Assessment and plan: Blood pressure has been well controlled inpatient. Continue home medication. Qualifiers: Hypertension type: essential hypertension Qualified Code(s): I10 - Essential (primary) hypertension (3) Morbid obesity Current Visit: No Status: Chronic Assessment and plan: Chronic. Lifestyle changes. Qualifiers: Obesity type: due to excess calories Qualified Code(s): E66.01 - Morbid ( severe) obesity due to excess calories (4) Hyperlipidemia Current Visit: Yes Status: Chronic Assessment and plan: Chronic. continue home medication. Qualifiers: Hyperlipidemia type: unspecified Qualified Code(s): E78.5 - Hyperlipidemia , unspecified (5) DVT prophylaxis Current Visit: Yes Status: Acute Assessment and plan: Patient has been ambulatory in her room. Subcutaneous heparin daily - Time Spent With Patient less than 15 minutes - Subjective Interval history: Patient was seen and examined about 945 this morning. At that point she had not continued her second part of her stress test due to having a nicotine patch on her arm. Testing was delayed. Chest test was unremarkable, as well as her echocardiogram. Patient is still having continuous 5-6/10 chest pain that is worsened with exertion. I was going to discharge patient after her results are back, however I did offer the option to see cardiology due to continued chest pain and she would like to see them in the morning. Consult is in. - Constitutional Vitals: Temp Pulse Resp BP Pulse Ox 98.1 F 70 16 101/68 93 02/21/17 15:31 02/21/17 15:31 02/21/17 15:31 02/21/17 15:31 02/21/17 15:31 General appearance: Present: cooperative, mild distress, A&O X 3, morbidly obese , pleasant, no acute distress, answers questions appropriately - Head Head exam: Present: normal inspection - Neck Neck exam general surgery: Present: normal inspection. Absent: lymphadenopathy , tenderness - Respiratory Respiratory exam: Present: decreased breath sounds, CTAB. Absent: rales, respiratory distress, rhonchi, wheezes - Cardiovascular Cardiovascular exam: Present: RRR, +S1, +S2. Absent: bradycardia, clicks, diastolic murmur, gallop, irregular rhythm, systolic murmur, tachycardia - GI/Abdominal GI/Abdominal exam: Present: distended, normal bowel sounds, soft. Absent: guarding, hernia, hepatomegaly, tenderness - Extremities Exam Extremities exam: Present: normal capillary refill, normal inspection, warm, radial pulses palpable and symetrical. Absent: pedal edema, tenderness - Neurological Exam Neurological exam: Present: alert, oriented X3, no focal deficits. Absent: facial droop, speech deficit Internal Medicine: Result - Labs CBC & Chem 7: 02/20/17 00:37 02/20/17 00:37 - ABG Interpretation ABG results: PT/INR, D-dimer PT 11.0 Seconds (9.4-12.1) 02/20/17 00:37 D-Dimer 539 ng/mLFEU (0-500) H 02/20/17 00:37 Consult Discharge Plan - Plan Additional Instructions: Please follow up with your primary care physician in 1-2 weeks for a recheck. Resume your home medications. Return to the ER as needed for any new or concerning symptoms. Referrals: Jatin Mckoy MD [Primary Care Provider] -
[2017-02-21] MEDS: rOPINIRole 0.25 MG TABLET PO SCH (20:54)
[2017-02-21] MEDS: traZODone 50 MG TABLET PO SCH (20:55)
[2017-02-22] MEDS: *HR* HYDROcodone/Acet 5/325 mg TABLET PO PRN ×2 (03:00→09:17)
[2017-02-22] MEDS: *HR* Heparin 5,000 UNIT/ML VIAL SQ SCH (06:34)
[2017-02-22 06:51] VITALS: BP 108/75
--- NOTE | 2017-02-22 08:16 | Cardiology Consult Note ---
<Raheem Gonzalez - Last Filed: 02/22/17 11:01> Date of Encounter: 02/22/17 Time of Encounter: 08:30 Assessment and Plan (1) Chest pain Status: Acute Per Cardiology: Troponins negative 3. Echo shows EF preserved at 60-65% with no segmental wall motion abnormalities. Stress test negative for ischemia or infarct. Symptoms atypical and reproducible today upon exam. Left heart catheterization November 2015 with nonobstructive CAD with proximal LAD 20% lesion. I discussed with patient and today and at this point agreeable to discharge home today in follow-up in outpatient setting with her primary community relations advisor. They are agreeable to no further ischemic evaluation at this time. All questions answered. Patient discussed with Dr. Rivas. Qualifiers: Chest pain type: precordial pain Qualified Code(s): R07.2 - Precordial pain (2) CAD (coronary artery disease) Status: Chronic Per Cardiology: Left heart catheterization from November 2015 showed proximal LAD 20% stenosis. On aspirin, statin, EMLO inhibitor, beta wilfrido, and long-acting nitrate. Qualifiers: Coronary Disease-Associated Artery/Lesion type: [place] artery [place] vs. transplanted heart: [place] heart Associated angina: angina presence unspecified Qualified Code(s): I25.10 - Atherosclerotic heart disease of [place] coronary artery without angina pectoris (3) Tobacco abuse Status: Chronic Per Cardiology: Smoking cessation encouraged. Discussion w patient/family: The assessment and plan as outlined above was discussed with the patient and/or family members who expressed understanding and agreement. All questions were answered. Thank you for involving us in the care of your patient. Please call with any questions. History of Present Illness Consult date: 02/22/17 Requesting physician: Yenni Gaston Consult reason: CP Chief complaint: CP History of present illness: Ms. Johnston is a 51 year old female with relevant past medical history of hypertension, nicotine abuse, hyperlipidemia, anxiety, diabetes mellitus, back pain. Cardiology consult for chest pain evaluation. Patient reports continuous left chest and shoulder pressure upon visitation of 9 out of 10 pain. Patient reports pain has been continuous during entire hospital stay currently about 3 out of 10. She denies any other accompanying symptomatology. Reports symptoms worse with movement and deep inspiration and reproducible today upon exam. Denies any dizziness, syncope, palpitations, falls. Past Med Surg Social Fam HX - Past Medical History Attestation: Yes The following information was validated with the patient. Source: patient, old records reviewed, obtained from family Medical history: diabetes, hyperlipidemia, hypertension Psychiatric history: anxiety, depression - Past Surgical History Surgical History: breast surgery, hysterectomy, orthopedic, other - Social History Smoking Status: Current every day smoker Packs per day: 1 Smokeless Tobacco Status: No Alcohol use: occasionally Drug use: none - Family History Father Race: Family Member Ethnicity: Non- Living Status: Age at : 77 Cause of : Non-EtOH cirrhosis Hx Family GI Disorders: Yes (non-alcoholic cirrhosis) Mother Race: Family Member Ethnicity: Non- Living Status: Still Living Hx Family Cardiac Disorders: Yes (HTN, Afib) Brother Race: Family Member Ethnicity: Non- Living Status: Still Living Hx Family Respiratory Disorders: Yes (COPD) Hx Family Endocrine Disorder: Yes (DM) Medications and Allergies Aripiprazole [Abilify] 5 mg PO QAM 11/05/15 [History] Duloxetine HCl [Cymbalta] 60 mg PO QAM 11/05/15 [History] Lisinopril [Zestril] 10 mg PO QAM 11/05/15 [History] Metoprolol [Lopressor] 150 mg PO BID 11/05/15 [History] Pravastatin Sodium [Pravachol] 40 mg PO QPM 11/05/15 [History] Ropinirole HCl [Requip] 0.5 mg PO HS 11/05/15 [History] Aspirin [Adult Low Dose Aspirin EC] 81 mg PO DAILY 12/04/15 [History] Gabapentin [Neurontin] 600 mg PO TID 12/04/15 [History] Isosorbide MONOnitrate (24 HR) [Imdur] 30 mg PO DAILY 12/04/15 [History] Furosemide [Lasix] 20 mg PO DAILY PRN 07/23/16 [History] Metolazone [Zaroxolyn] 5 mg PO DAILY 07/23/16 [History] Oxybutynin Chloride [Ditropan Xl] 10 mg PO DAILY 07/23/16 [History] Oxygen 2 l NS HS PRN 09/28/16 [History] HYDROcodone/Acet 5/325 mg [[place] 5-325 mg] 1 tab PO Q6H PRN 02/19/17 [History] Omeprazole [PriLOSEC] 40 mg PO DAILY 02/19/17 [History] Potassium Chloride [K-Tab ER] 10 meq PO DAILY 02/19/17 [History] Trazodone HCl 250 mg PO HS 02/19/17 [History] metFORMIN [Glucophage] 1,000 mg PO BID 02/19/17 [History] Ibuprofen [Motrin] 600 mg PO BID PRN #15 tab 02/22/17 [Rx] Allergies tramadol Allergy (Verified 09/28/16 07:48) Rash All Systems Review: A 10-system review of systems was performed and is negative for pertinent findings except as documented above in the HPI. - Cardiovascular Cardiovascular: as per HPI, chest pain at rest Physical Examination Vital Signs, Last 4 Hours Temp Pulse Resp BP Pulse Ox 02/22/17 06:45 98.0 F 76 17 108/75 94 General: Conversant, No Apparent Distress HEENT: Atraumatic, Normocephaly, Mucus Membranes Moist Neck: No JVD, Normal carotid pulses Cardiac: Reg Rate and Rhythm, Normal S1 and S2, No Murmur Lungs: Normal Breath Sounds, No Wheeze, Rales, Rhonchi Neuro: Alert and responsive, No focal deficits noted Abdomen: Soft, Non-Tender Skin: No rashes noted on visualized skin Musculoskeletal: No Chest Wall Tenderness Extremities: No Clubbing, No Cyanosis, No Edema, Normal Pulses Results 02/20/17 00:37 02/20/17 00:37 Laboratory Tests 02/19/17 02/19/17 02/20/17 11:45 18:15 00:37 INR D-Dimer AST ALT Troponin I 0.00 0.00 0.01 B-Natriuretic Peptide LDL Cholesterol, Calc 02/20/17 02/20/17 02/20/17 00:37 00:37 00:37 INR 1.0 D-Dimer AST 21 ALT 38 Troponin I B-Natriuretic Peptide 14 LDL Cholesterol, Calc 77 02/20/17 00:37 INR D-Dimer 539 H AST ALT Troponin I B-Natriuretic Peptide LDL Cholesterol, Calc ITS Impressions Chest X-Ray 02/19/17 11:47 IMPRESSION: No acute cardiopulmonary process. D/ / 02/19/2017 12:18:13 Gianfranco Acosta MD / [email or web address] Interpreting Provider: Gianfranco Acosta MD Active Medications Acetaminophen/Hydrocodone Bitart ([place] 5-325 Mg) 1 tab PO Q6H PRN PRN Reason: Pain Stop: 08/21/17 13:26 Last Admin: 02/22/17 03:00 Dose: 1 tab Aripiprazole (Abilify) 5 mg PO QAM TONG Stop: 08/22/17 09:01 Last Admin: 02/21/17 12:53 Dose: 5 mg Aspirin (Aspirin) 81 mg PO DAILY TONG Stop: 08/22/17 09:01 Last Admin: 02/21/17 12:54 Dose: 81 mg Atorvastatin Calcium (Lipitor) 20 mg PO HS TONG Stop: 08/21/17 21:01 Last Admin: 02/21/17 20:55 Dose: 20 mg Dextrose/Water (Dextrose 50% (Syg)) 25 ml IVP AD PRN PRN Reason: Hypoglycemia Stop: 08/21/17 13:31 Duloxetine HCl (Cymbalta) 60 mg PO QAM TONG Stop: 08/22/17 09:01 Last Admin: 02/21/17 12:55 Dose: 60 mg Furosemide (Lasix) 40 mg IVP DAILY [facility] Stop: 08/22/17 09:01 Last Admin: 02/21/17 12:55 Dose: 40 mg Gabapentin (Neurontin) 600 mg PO TID TONG Stop: 08/21/17 15:01 Last Admin: 02/21/17 20:54 Dose: 600 mg Glucagon (Glucagen) 1 mg IM ONCE PRN PRN Reason: Hypoglycemia Stop: 08/21/17 13:31 Glucose (Gluctose) 15 gm PO ONCE PRN PRN Reason: Hypoglycemia Stop: 08/21/17 13:31 Glucose (Gluctose) 30 gm PO ONCE PRN PRN Reason: Hypoglycemia Stop: 08/21/17 13:31 Heparin Sodium (Porcine) (Heparin) 5,000 unit SQ Q8HCO TONG Stop: 08/21/17 14:01 Last Admin: 02/22/17 06:34 Dose: 5,000 unit Dextrose (Dextrose 5%) 1,000 mls @ 100 mls/hr IVC .Q10H PRN PRN Reason: HYPOGLYCEMIA Stop: 08/21/17 13:31 Insulin Human Lispro (Humalog) 0 units SQ TIDAC [facility] PRN Reason: Protocol Stop: 08/21/17 16:31 Last Admin: 02/21/17 17:25 Dose: 2 units Insulin Human Lispro (Humalog) 0 units SQ HS [facility] PRN Reason: Protocol Stop: 08/21/17 21:01 Last Admin: 02/21/17 20:56 Dose: Not Given Isosorbide Mononitrate (Imdur) 30 mg PO DAILY [facility] Stop: 08/22/17 09:01 Last Admin: 02/21/17 12:54 Dose: 30 mg Lisinopril (Zestril) 10 mg PO QAM [facility] PRN Reason: Protocol Stop: 08/22/17 09:01 Last Admin: 02/21/17 12:55 Dose: 10 mg Metolazone (Zaroxolyn) 5 mg PO DAILY [facility] Stop: 08/22/17 09:01 Last Admin: 02/21/17 12:53 Dose: 5 mg Metoprolol Tartrate (Lopressor) 150 mg PO BID [facility] Stop: 08/21/17 21:01 Last Admin: 02/21/17 20:53 Dose: 150 mg Naloxone HCl (Narcan) 0.4 mg IVP Q2MIN PRN PRN Reason: Opioid Reversal Stop: 08/21/17 13:17 Nicotine (Nicoderm) 14 mg TD DAILY [facility] PRN Reason: Protocol Stop: 08/22/17 14:01 Last Admin: 02/21/17 12:53 Dose: 14 mg Nitroglycerin (Nitroglycerin) 0.4 mg SL Q5MIN PRN PRN Reason: Chest Pain Stop: 08/21/17 13:24 Omeprazole (Prilosec) 40 mg PO DAILY [facility] Stop: 08/22/17 09:01 Last Admin: 02/21/17 12:55 Dose: 40 mg Ondansetron HCl (Zofran) 4 mg IVP Q8HR PRN PRN Reason: Nausea And Vomiting Stop: 08/21/17 13:17 Oxybutynin Chloride (Ditropan) 10 mg PO BID [facility] Stop: 08/22/17 09:01 Last Admin: 02/21/17 20:55 Dose: 10 mg Potassium Chloride (Potassium Chloride) 10 meq PO DAILY [facility] Stop: 08/22/17 09:01 Last Admin: 02/21/17 12:53 Dose: 10 meq Ropinirole HCl (Requip) 0.5 mg PO HS TONG Stop: 08/21/17 21:01 Last Admin: 02/21/17 20:54 Dose: 0.5 mg Simvastatin (Zocor) 20 mg PO QPM TONG Stop: 08/21/17 18:01 Last Admin: 02/21/17 17:25 Dose: 20 mg Trazodone HCl (Trazodone) 250 mg PO HS TONG Stop: 08/21/17 21:01 Last Admin: 02/21/17 20:55 Dose: 250 mg - Imaging and Cardiology Chest Xray: report reviewed Stress Test: report reviewed Echo: report reviewed Cardiac cath: report reviewed - EKG Interpretation EKG results cardiology: personally reviewed, normal ECG, sinus rhythm, other ( 24 hr tele shows avg HR 72, SR) Consult Discharge Plan - Plan Instructions: Heart Healthy Diet (DC), Chest Pain, Senior Information Developer (GEN) Additional Instructions: Please follow up with your primary care physician in 1-2 weeks for a recheck. Resume your home medications. You may take the Ibuprofen up to 2 times daily for chest wall pain. Try relaxation techniques for stress reduction. Return to the ER as needed for any new or concerning symptoms. Cardiology will call you with an appointment time and day. Please call them at the number provided if you do not hear from them with in the week. Follow-up appointments: If there is not an appointment listed below, please call your physician and schedule a follow-up appointment. If you have congestive heart failure and your symptoms return, make an appointment with your physician. Medication List: Carry an up to date list of medications you are taking at all time. We have given you an updated medication list including any new medications that you have been prescribed. Please provide that list to your primary provider Symptoms: If your condition changes or you experience any of the following symptoms, notify your physician immediately: Unusual or worsening pain, fever, persistent nausea and vomiting, bleeding, increase in swelling (especially in your legs), sudden weight gain, extreme dizziness, chest pain, increased drainage or redness from a wound or incision. Go to the emergency department if you experience a problem with breathing. Weights: If you have a history of swelling or shortness of breath, weigh yourself daily and notify your physician if you have a weight gain of two or more pounds in one day or 5 or more pounds in a week. If you experience any of the warning signs for stroke: Sudden numbness or weakness of the face, arm or leg; especially on one side of the body, sudden confusion, trouble speaking or understanding, sudden trouble seeing in one or both eyes, sudden trouble walking, dizziness, loss of balance or coordination, sudden sever headache with no cause; Call 911 or go to the emergency room. Stroke is a medical emergency. Some risk factors for stroke: Age, cigarette smoking, diabetes, excessive alcohol consumption, family history , high blood pressure, overweight, physical inactivity, prior stroke, heart attack, diagnosis of carotid artery stenosis or other artery disease. If you smoke, STOP: Smoking or tobacco use significantly increases your risk of heart and lung disease. Your chance of disease greatly increases if you continue to smoke. For more information, call the [place] tobacco quit line for smoking cessation 3-NOW ( ) Referrals: Patricio Beaulieu MD [Partnered Physician] - Jatin Mckoy MD [Primary Care Provider] - (We have requested a follow up appointment with Dr Mckoy. The office will call you at home with an appointment date and time.) Prescriptions: Ibuprofen [Motrin] 600 mg PO BID PRN #15 tab PRN Reason: Pain <Kathryn Rivas - Last Filed: 02/22/17 13:14> Date of Encounter: 02/22/17 Assessment and Plan Discussion w patient/family: The assessment and plan as outlined above was discussed with the patient and/or family members who expressed understanding and agreement. All questions were answered. Thank you for involving us in the care of your patient. Please call with any questions. History of Present Illness History of present illness: Ms. Johnston is a 51 year old female All Systems Review: A 10-system review of systems was performed and is negative for pertinent findings except as documented above in the HPI. Results 02/20/17 00:37 02/20/17 00:37 - Attending Attestation I agree with the findings and plan of the CHIEF CREW SCHEDULER/PA/Advanced Practice Nurse/ Resident Physician. Unfortunately, this patient was discharged before I was able to evaluate her. To summarize, she presented with atypical chest pain, had negative troponins and no ECG changes. She underwen stress testing that was negative. She had a cath last year demonstrating 20% LAD. Her symptoms do not appear to be cardiac. The plan is for her to follow up with her community relations advisor as an outpatient.
[2017-02-22] MEDS: Metoprolol 100 MG TABLET PO SCH (09:17)
[2017-02-22] MEDS: Isosorbide MONOnitrate (24 HR) 60 MG TAB.ER.24H PO SCH (09:17)
[2017-02-22] MEDS: Gabapentin 300 MG CAPSULE PO SCH (09:17)
[2017-02-22] MEDS: metOLazone 5 MG TABLET PO SCH (09:18)
[2017-02-22] MEDS: Insulin LISPRO 300 UNITS/3 ML VIAL SQ SCH (09:18)
[2017-02-22] MEDS: Furosemide 40 MG/4 ML VIAL IVP SCH (09:18)
[2017-02-22] MEDS: ARIPiprazole 5 MG TABLET PO SCH (09:18)
[2017-02-22] MEDS: Nicotine 14 MG PATCH.TD24 TD SCH (09:18)
[2017-02-22] MEDS: Aspirin 81 MG TAB.CHEW PO SCH (09:18)
--- NOTE | 2017-02-23 16:31 | Electrocardiograph Report ---
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
== END 2017-02-22 11:05 | disposition home or self-care (01) ==
LOC: EMEROO 11:22 → 3BNU 11:22
PROVIDERS: ADMIT Internal Medicine; ATTEND Registered Nurse

== ENCOUNTER 2017-08-07 18:38 | Inpatient (IN) ==
[2017-08-07] MEDS ORDERED: Ipratropium/Albuterol Neb 3 ML IH ONE (18:44)
[2017-08-07] MEDS ORDERED: methylPREDNISolone 125 MG/2 ML VIAL IVP ONE (18:44)
--- NOTE | 2017-08-07 18:49 | Emergency Department Note ---
Disposition Clinical Impression: COPD with acute exacerbation Acute and chronic respiratory failure ([id number]) Qualifiers: Respiratory failure complication: unspecified whether with hypoxia or hypercapnia Qualified Code(s): J96.20 - Acute and chronic respiratory failure, unspecified whether with hypoxia or hypercapnia Disposition: Still a Patient Condition: Fair Referrals: Jatin Mckoy MD [Primary Care Provider] - SOB HPI - General Chief Complaint: ED Shortness of Breath/Dyspnea Stated Complaint: TEZ Time Seen by Provider: 08/07/17 18:40 Nursing Notes Reviewed: Yes Vital Signs Reviewed: Yes - History of Present Illness Mrs. Johnston, 51-year-old female, presents to emergency department for difficulty breathing. Onset 4 days ago. Patient was at her primary care physician's office yesterday and was sent from his office to this emergency department. She was discharged home with diagnosis of viral pneumonia and prescriptions for steroids, inhaler, and empiric antibiotics to prevent post viral bacterial pneumonia. Her symptoms became worse tonight. She was saturating 89% on her baseline 2 L supplemental oxygen. She also notes sharp left-sided chest pain worse with coughing at this time. It is nonradiating. PMH: COPD requiring 2 L baseline oxygen at home, hypertension, hyperlipidemia, history pneumonia ROS: Positive: Worsening dyspnea, dry cough, chest pain Negative: Palpitations, abdominal pains, fever, chills, headache, myalgia - Related Data Home Medications Medication Instructions Recorded Confirmed Aripiprazole [Abilify] 5 mg PO QAM 11/05/15 02/19/17 Duloxetine HCl [Cymbalta] 60 mg PO QAM 11/05/15 02/19/17 Lisinopril [Zestril] 10 mg PO QAM 11/05/15 02/19/17 Metoprolol [Lopressor] 150 mg PO BID 11/05/15 02/19/17 Pravastatin Sodium [Pravachol] 40 mg PO QPM 11/05/15 02/19/17 Ropinirole HCl [Requip] 0.5 mg PO HS 11/05/15 02/19/17 Aspirin [Adult Low Dose Aspirin EC] 81 mg PO DAILY 12/04/15 02/19/17 Gabapentin [Neurontin] 600 mg PO TID 12/04/15 02/19/17 Isosorbide MONOnitrate (24 HR) 30 mg PO DAILY 12/04/15 02/19/17 [Imdur] Furosemide [Lasix] 20 mg PO DAILY PRN 07/23/16 02/19/17 Metolazone [Zaroxolyn] 5 mg PO DAILY 07/23/16 02/19/17 Oxybutynin Chloride [Ditropan Xl] 10 mg PO DAILY 07/23/16 02/19/17 Oxygen 2 l NS HS PRN 09/28/16 02/19/17 HYDROcodone/Acet 5/325 mg [[place] 1 tab PO Q6H PRN 02/19/17 02/19/17 5-325 mg] Omeprazole [PriLOSEC] 40 mg PO DAILY 02/19/17 02/19/17 Potassium Chloride [K-Tab ER] 10 meq PO DAILY 02/19/17 02/19/17 Trazodone HCl 250 mg PO HS 02/19/17 02/19/17 metFORMIN [Glucophage] 1,000 mg PO BID 02/19/17 02/19/17 Previous Rx's Medication Instructions Recorded Ibuprofen [Motrin] 600 mg PO BID PRN #15 tab 02/22/17 Doxycycline 100 mg PO BID #14 capsule 08/06/17 predniSONE [PredniSONE] 40 mg PO DAILY #10 tablet 08/06/17 Allergies Allergy/AdvReac Type Severity Reaction Status Date / Time tramadol Allergy Rash Verified 08/06/17 15:42 All systems ED: reviewed and negative except as stated. Review of Systems: As Per HPI Past Medical History - Past Medical History Medical history: Reports: COPD, diabetes, hyperlipidemia, hypertension Surgical history: Reports: breast surgery, hysterectomy, orthopedic, other Psychiatric history: Reports: anxiety, depression - Social History Smoking Status: Current every day smoker Smokeless Tobacco Status: No Alcohol use: Reports: occasionally Drug use: Reports: none Physical Exam Vital Signs Reviewed General: Patient is alert, oriented, and in moderate respiratory distress- tachypnea, mild accessory muscle use, requiring 6 L supplemental oxygen for O2 sat greater than 92%. HEENT: No facial asymmetry. Head is normocephalic and atraumatic. Mucosa moist. Trachea midline. Cardiovascular: Heart regular rate and rhythm without clicks, rubs, gallops, or murmurs. No JVD. PMI nondisplaced. Respiratory: Symmetric chest rise with good respiratory effort. Prolonged respiratory phase. Bilateral breath sounds have diffuse wheeze and coarse lung sounds. Abdomen: Bowel sounds present normoactive x-4 quadrants. Abdomen is soft, nondistended, and nontender. Neuro: GCS 15. Skin: Warm, dry. Psych: Patient's affect is appropriate for situation. Course Course Narrative: I personally saw and examined the patient on her evaluation yesterday. Her presentation today, she is in increased respiratory distress with a new finding of chest pain. Perform chest pain and dyspnea workup. Her lung sounds now are superficially worse than yesterday. She is requiring 6 L nasal cannula to maintain pulse ox greater than 92%. We will sign patient out to the night team , Dr. Hayden and Dr. Roca with her entire workup pending. Anticipate admission to the hospital for continued respiratory support and management. Attestation Statement - Attestation Attestation: Patient was seen with resident physician. I reviewed the history, physical, assessment and plan, and agree with the findings. I also personally evaluated this patient and had [id number] time with this patient. 51-year-old female presents to the second time in 2 days with a chief complaint shortness of breath. Patient was seen yesterday was given an antibiotic and some breathing treatments and sent home. She is a COPD patient on home O2 of 2 L. Comes back today with worsening shortness of breath. Per EMS she was 89% on her regular regimen of 2 L. On arrival she complains shortness of breath and chest tightness. She said the tightness has been continuous. On examination vital signs are stable. ENT is unremarkable. Lungs diffuse wheezing throughout with slight increased work of breathing. Abdomen is soft nontender. Extremities unremarkable. Neurologically intact. ED course patient was seen just before shift change. Entire workup was pending. Meds and labs were ordered. I anticipate the need to admit the patient secondary to increased work of breathing and COPD exacerbation worsening. Having said that the operations supervisor 2nd shift team will review the findings of her workup and the patient's response to treatments and determine the final disposition. Patient was still patient time of this dictation.
--- NOTE | 2017-08-07 19:05 | Emergency Department Note ---
Disposition Clinical Impression: COPD with acute exacerbation Acute and chronic respiratory failure ([id number]) Qualifiers: Respiratory failure complication: unspecified whether with hypoxia or hypercapnia Qualified Code(s): J96.20 - Acute and chronic respiratory failure, unspecified whether with hypoxia or hypercapnia Disposition: Still a Patient Condition: Fair Referrals: Jatin Mckoy MD [Primary Care Provider] - General Adult HPI - General Chief complaint: ED Shortness of Breath/Dyspnea Stated complaint: TEZ Time Seen by Provider: 08/07/17 18:40 Source: patient Limitations: no limitations - History of Present Illness Pain Scale: 10 - Related Data Home Medications Medication Instructions Recorded Confirmed Aripiprazole [Abilify] 5 mg PO QAM 11/05/15 02/19/17 Duloxetine HCl [Cymbalta] 60 mg PO QAM 11/05/15 02/19/17 Lisinopril [Zestril] 10 mg PO QAM 11/05/15 02/19/17 Metoprolol [Lopressor] 150 mg PO BID 11/05/15 02/19/17 Pravastatin Sodium [Pravachol] 40 mg PO QPM 11/05/15 02/19/17 Ropinirole HCl [Requip] 0.5 mg PO HS 11/05/15 02/19/17 Aspirin [Adult Low Dose Aspirin EC] 81 mg PO DAILY 12/04/15 02/19/17 Gabapentin [Neurontin] 600 mg PO TID 12/04/15 02/19/17 Isosorbide MONOnitrate (24 HR) 30 mg PO DAILY 12/04/15 02/19/17 [Imdur] Furosemide [Lasix] 20 mg PO DAILY PRN 07/23/16 02/19/17 Metolazone [Zaroxolyn] 5 mg PO DAILY 07/23/16 02/19/17 Oxybutynin Chloride [Ditropan Xl] 10 mg PO DAILY 07/23/16 02/19/17 Oxygen 2 l NS HS PRN 09/28/16 02/19/17 HYDROcodone/Acet 5/325 mg [[place] 1 tab PO Q6H PRN 02/19/17 02/19/17 5-325 mg] Omeprazole [PriLOSEC] 40 mg PO DAILY 02/19/17 02/19/17 Potassium Chloride [K-Tab ER] 10 meq PO DAILY 02/19/17 02/19/17 Trazodone HCl 250 mg PO HS 02/19/17 02/19/17 metFORMIN [Glucophage] 1,000 mg PO BID 02/19/17 02/19/17 Previous Rx's Medication Instructions Recorded Ibuprofen [Motrin] 600 mg PO BID PRN #15 tab 02/22/17 Doxycycline 100 mg PO BID #14 capsule 08/06/17 predniSONE [PredniSONE] 40 mg PO DAILY #10 tablet 08/06/17 Allergies Allergy/AdvReac Type Severity Reaction Status Date / Time tramadol Allergy Rash Verified 08/06/17 15:42 Past Medical History - Past Medical History Medical history: Reports: COPD, diabetes, hyperlipidemia, hypertension Surgical history: Reports: breast surgery, hysterectomy, orthopedic, other Psychiatric history: Reports: anxiety, depression - Social History Smoking Status: Current every day smoker Smokeless Tobacco Status: No Alcohol use: Reports: occasionally Drug use: Reports: none Physical Exam - General Limitations: no limitations General appearance: alert Course Vital Signs Temperature 97.9 F 08/07/17 18:41 Pulse Rate 71 08/07/17 18:41 Respiratory Rate 20 08/07/17 18:41 Blood Pressure 137/89 08/07/17 18:41 O2 Sat by Pulse Oximetry 94 08/07/17 18:41 Temperature 97.9 F 08/07/17 18:41 Pulse Rate 68 08/07/17 18:58 Respiratory Rate 18 08/07/17 18:58 Blood Pressure 137/89 08/07/17 18:58 O2 Sat by Pulse Oximetry 98 08/07/17 18:58 Oxygen Delivery Oxygen Delivery Non Rebreather Mask Attestation Statement - Attestation Attestation: Care of patient assumed from Dr. Rahman at 7 PM pending labs, chest x-ray, reevaluation. Patient was seen yesterday for similar symptoms including chest discomfort and dyspnea. She is home oxygen dependent. Slight increased work of breathing my evaluation. We will plan to admit the patient upon completion of reassessment and workup
--- NOTE | 2017-08-07 19:06 | Emergency Department Note ---
Disposition Clinical Impression: COPD with acute exacerbation Acute and chronic respiratory failure ([id number]) Qualifiers: Respiratory failure complication: unspecified whether with hypoxia or hypercapnia Qualified Code(s): J96.20 - Acute and chronic respiratory failure, unspecified whether with hypoxia or hypercapnia Disposition: Admitted As Inpatient Condition: Fair Forms: ED Satisfaction Letter Time of Disposition: 20:00 SOB HPI - General Chief Complaint: ED Shortness of Breath/Dyspnea Stated Complaint: TEZ Time Seen by Provider: 08/07/17 18:40 Source: patient Limitations: no limitations Nursing Notes Reviewed: Yes Vital Signs Reviewed: Yes - Related Data Home Medications Medication Instructions Recorded Confirmed Aripiprazole [Abilify] 5 mg PO QAM 11/05/15 02/19/17 Duloxetine HCl [Cymbalta] 60 mg PO QAM 11/05/15 02/19/17 Lisinopril [Zestril] 10 mg PO QAM 11/05/15 02/19/17 Metoprolol [Lopressor] 150 mg PO BID 11/05/15 02/19/17 Pravastatin Sodium [Pravachol] 40 mg PO QPM 11/05/15 02/19/17 Ropinirole HCl [Requip] 0.5 mg PO HS 11/05/15 02/19/17 Aspirin [Adult Low Dose Aspirin EC] 81 mg PO DAILY 12/04/15 02/19/17 Gabapentin [Neurontin] 600 mg PO TID 12/04/15 02/19/17 Isosorbide MONOnitrate (24 HR) 30 mg PO DAILY 12/04/15 02/19/17 [Imdur] Furosemide [Lasix] 20 mg PO DAILY PRN 07/23/16 02/19/17 Metolazone [Zaroxolyn] 5 mg PO DAILY 07/23/16 02/19/17 Oxybutynin Chloride [Ditropan Xl] 10 mg PO DAILY 07/23/16 02/19/17 Oxygen 2 l NS HS PRN 09/28/16 02/19/17 HYDROcodone/Acet 5/325 mg [[place] 1 tab PO Q6H PRN 02/19/17 02/19/17 5-325 mg] Omeprazole [PriLOSEC] 40 mg PO DAILY 02/19/17 02/19/17 Potassium Chloride [K-Tab ER] 10 meq PO DAILY 02/19/17 02/19/17 Trazodone HCl 250 mg PO HS 02/19/17 02/19/17 metFORMIN [Glucophage] 1,000 mg PO BID 02/19/17 02/19/17 Previous Rx's Medication Instructions Recorded Ibuprofen [Motrin] 600 mg PO BID PRN #15 tab 02/22/17 Doxycycline 100 mg PO BID #14 capsule 08/06/17 predniSONE [PredniSONE] 40 mg PO DAILY #10 tablet 08/06/17 Allergies Allergy/AdvReac Type Severity Reaction Status Date / Time tramadol Allergy Rash Verified 08/06/17 15:42 Past Medical History - Past Medical History Medical history: Reports: COPD, diabetes, hyperlipidemia, hypertension Surgical history: Reports: breast surgery, hysterectomy, orthopedic, other Psychiatric history: Reports: anxiety, depression - Social History Smoking Status: Current every day smoker Smokeless Tobacco Status: No Alcohol use: Reports: occasionally Drug use: Reports: none Physical Exam - General Limitations: no limitations General appearance: alert Course Course Narrative: Patient seen and examined. Signed out by Dr. Barboza and Dr. Rahman. Please see their note for previous documentation. Briefly, patient is a 51-year -old female with a history of COPD requiring 2 L of oxygen at home. Patient was seen here yesterday and discharged home with steroids, antibiotics. Patient woke up today with worsening difficulty breathing. States her chest felt extremely tight. Upon arrival here, patient required 6 L to maintain oxygen saturation greater than 92%. Triple nebs were ordered as well as cardiopulmonary workup. - Reevaluation(s) Reevaluation #1: Upon reassessment, patient still having diffuse wheezing bilaterally. Her oxygen saturation is around 90% on 3-1/2 L of nasal cannula oxygen. We will admit for COPD exacerbation. I discussed with hospitalist Dr. Deluna who has accepted patient for admission. Time: 20:00 Vital Signs Temperature 97.9 F 08/07/17 18:41 Pulse Rate 71 08/07/17 18:41 Respiratory Rate 20 08/07/17 18:41 Blood Pressure 137/89 08/07/17 18:41 O2 Sat by Pulse Oximetry 94 08/07/17 18:41 Temperature 97.9 F 08/07/17 18:41 Pulse Rate 77 08/07/17 19:49 Respiratory Rate 22 08/07/17 19:49 Blood Pressure 114/63 08/07/17 19:49 O2 Sat by Pulse Oximetry 90 08/07/17 19:49 Oxygen Delivery Oxygen Delivery Nasal Cannula Shortness of Breath/Dyspnea - Medical Records Medical records reviewed: Yes I reviewed the patient's medical records. - Lab Data Lab results reviewed: Yes I reviewed the patient's lab results. Result diagrams: 08/07/17 19:00 08/07/17 19:00 Lab Results 08/07/17 08/07/17 08/07/17 Range/Units 19:00 19:00 19:00 WBC 8.1 (4.3-11.1) K/mcL RBC 5.21 H (3.82-4.97) M/mcL Hgb 13.9 (11.5-15.4) g/dL Hct 44.6 (35.3-44.9) % MCV 85.6 (83.0-100.0) fL MCH 26.7 L (28.0-33.3) pg MCHC 31.2 L (31.6-35.5) g/dL RDW 16.1 H (11.5-14.5) % Plt Count 256 (140-400) K/mcL MPV 9.3 L (9.4-12.4) fL Immature Gran % 0.5 (0-4) % Seg Neutrophils % 72.2 % Lymphocytes % 18.3 % Monocytes % 8.3 % Eosinophils % 0.2 % Basophils % 0.5 % Neutrophils # 5.8 (1.6-8.9) K/mcL Lymphocytes # 1.5 (0.6-4.6) K/mcL Monocytes # 0.7 (0.0-1.3) K/mcL Eosinophils # 0.0 (0.0-0.6) K/mcL Basophils # 0.0 (0.0-0.2) K/mcL Sodium 142 (136-145) mEq/L Potassium 4.0 (3.5-4.5) mEq/L Chloride 103 (98-109) mEq/L Carbon Dioxide 29 (19-29) mEq/L BUN 9 (7-20) mg/dL Creatinine 0.75 (0.57-1.11) mg/dL Est GFR ( Amer) > 60 (> 60) Est GFR (Non-Af Amer) > 60 (> 60) BUN/Creatinine Ratio 12 (6-26) Glucose 108 H (70-99) mg/dL Calculated Osmolality 293 (280-300) Lactic Acid (0.5-2.2) mmol/L Calcium 9.1 (8.6-10.8) mg/dL Troponin I 0.00 (0-0.03) ng/mL 08/07/17 Range/Units 19:00 WBC (4.3-11.1) K/mcL RBC (3.82-4.97) M/mcL Hgb (11.5-15.4) g/dL Hct (35.3-44.9) % MCV (83.0-100.0) fL MCH (28.0-33.3) pg MCHC (31.6-35.5) g/dL RDW (11.5-14.5) % Plt Count (140-400) K/mcL MPV (9.4-12.4) fL Immature Gran % (0-4) % Seg Neutrophils % % Lymphocytes % % Monocytes % % Eosinophils % % Basophils % % Neutrophils # (1.6-8.9) K/mcL Lymphocytes # (0.6-4.6) K/mcL Monocytes # (0.0-1.3) K/mcL Eosinophils # (0.0-0.6) K/mcL Basophils # (0.0-0.2) K/mcL Sodium (136-145) mEq/L Potassium (3.5-4.5) mEq/L Chloride (98-109) mEq/L Carbon Dioxide (19-29) mEq/L BUN (7-20) mg/dL Creatinine (0.57-1.11) mg/dL Est GFR ( Amer) (> 60) Est GFR (Non-Af Amer) (> 60) BUN/Creatinine Ratio (6-26) Glucose (70-99) mg/dL Calculated Osmolality (280-300) Lactic Acid 2.1 (0.5-2.2) mmol/L Calcium (8.6-10.8) mg/dL Troponin I (0-0.03) ng/mL - Radiology Data Radiology results reviewed: Yes I reviewed the patient's radiology results. Chest X-Ray 08/07/17 18:44 IMPRESSION: Grossly unchanged appearance of minimal perihilar opacities. Findings again can be seen with mild pulmonary edema or viral etiology. D/ / Yasmany Salomon MD / Yasmany Salomon MD Interpreting Provider: Yasmany Salomon MD
[2017-08-07 19:09] LABS: Basophils % 0.5 %; Eosinophils % 0.2 %; Hematocrit 44.6 % (35.3-44.9); Hemoglobin 13.9 g/dL (11.5-15.4); Immature Granulocytes % 0.5 % (0-4); Lymphocytes # 1.5 K/mcL (0.6-4.6); Lymphocytes % 18.3 %; Mean Corpuscular HGB Conc 31.2 g/dL (31.6-35.5); Mean Corpuscular Hemoglobin 26.7 pg (28.0-33.3); Mean Corpuscular Volume 85.6 fL (83.0-100.0); Mean Platelet Volume 9.3 fL (9.4-12.4); Monocytes # 0.7 K/mcL (0.0-1.3); Monocytes % 8.3 %; Neutrophils # 5.8 K/mcL (1.6-8.9); Platelet Count 256 K/mcL (140-400); Red Blood Count 5.21 M/mcL (3.82-4.97); Red Cell Distribution Width 16.1 % (11.5-14.5); Segmented Neutrophils % 72.2 %
[2017-08-07 19:21] LABS: BUN/Creatinine Ratio 12 (6-26); Blood Urea Nitrogen 9 mg/dL (7-20); Calcium 9.1 mg/dL (8.6-10.8); Carbon Dioxide 29 mEq/L (19-29); Chloride 103 mEq/L (98-109); Glucose 108 mg/dL (70-99); Osmolality,Calculated 293 (280-300); Sodium 142 mEq/L (136-145); eGFR For African Americans > 60 (> 60); eGFR For Non-African Americans > 60 (> 60)
--- NOTE | 2017-08-07 22:40 | Internal Med History&Physical ---
Date of Encounter: 08/07/17 Time of Encounter: 21:00 Assessment and Plan (1) COPD with acute exacerbation Current visit: Yes Status: Acute -Patient with diffuse expiratory wheezing on physical exam and requiring supplemental oxygen. -Chest x-ray showed minimal perihilar opacities which can be seen with mild pulmonary edema or viral etiology. -Will treat patient with IV Levaquin, IV Solu-Medrol and scheduled DuoNeb's (2) Hypertension Current visit: No Status: Chronic -Blood pressure controlled; continue home medication Qualifiers: Hypertension type: essential hypertension Qualified Code(s): I10 - Essential (primary) hypertension (3) Hyperlipidemia Current visit: No Status: Chronic -Continue statin Qualifiers: Hyperlipidemia type: unspecified Qualified Code(s): E78.5 - Hyperlipidemia , unspecified (4) Depression Current visit: No Status: Chronic -Continue home meds. Qualifiers: Depression Type: unspecified Qualified Code(s): F32.9 - Major depressive disorder, single episode, unspecified (5) Tobacco abuse Current visit: No Status: Chronic -Discussed with patient about smoking cessation. -Nicotine replacement offered. (6) DVT prophylaxis Current visit: No Status: Acute -Subcutaneous heparin Internal Medicine - H&P: HPI Admitted From: Home Plans for Post Hospital Care: Home History of present illness: Patient is a 51-year-old female with past medical history significant for COPD, hypertension, hyperlipidemia and a [id number] smoker who presents to the ER on 08/07/17 due to shortness of breath. Patient reports that her symptoms began approximately 2 days prior to this admission. She reports of shortness of breath with wheezing and nonproductive cough. Patient was evaluated by ER on 08/06/17 and was discharged with antibiotics but patient without any improvement so decided to return today for reevaluation. In the ER, patient was found to be afebrile without leukocytosis. Chest x-ray showed minimal perihilar opacities which can be seen with mild pulmonary edema or viral etiology. She will be admitted to the medical floor for COPD exacerbation. Past Med Surg Social Fam HX - Past Medical History Medical history: COPD, diabetes, hyperlipidemia, hypertension Psychiatric history: anxiety, depression - Past Surgical History Surgical History: breast surgery, hysterectomy, orthopedic, other - Social History Smoking Status: Current every day smoker Packs per day: 1 Smokeless Tobacco Status: No Alcohol use: rarely Drug use: none - Family History Father Family Member Ethnicity: Non- Living Status: Hx Family GI Disorders: Yes (cirrhosis) Mother Family Member Ethnicity: Non- Living Status: Still Living Hx Family Cardiac Disorders: Yes (HTN, Afib) Brother Family Member Ethnicity: Non- Living Status: Still Living Hx Family Respiratory Disorders: Yes (COPD) Hx Family Endocrine Disorder: Yes (DM) Internal Medicine - H&P: Meds Aripiprazole [Abilify] 5 mg PO QAM 11/05/15 [History] Duloxetine HCl [Cymbalta] 60 mg PO QAM 11/05/15 [History] Lisinopril [Zestril] 10 mg PO QAM 11/05/15 [History] Metoprolol [Lopressor] 150 mg PO BID 11/05/15 [History] Pravastatin Sodium [Pravachol] 40 mg PO QPM 11/05/15 [History] Ropinirole HCl [Requip] 0.5 mg PO HS 11/05/15 [History] Aspirin [Adult Low Dose Aspirin EC] 81 mg PO DAILY 12/04/15 [History] Gabapentin [Neurontin] 600 mg PO TID 12/04/15 [History] Isosorbide MONOnitrate (24 HR) [Imdur] 30 mg PO DAILY 12/04/15 [History] Furosemide [Lasix] 20 mg PO DAILY PRN 07/23/16 [History] Metolazone [Zaroxolyn] 5 mg PO DAILY 07/23/16 [History] Oxybutynin Chloride [Ditropan Xl] 10 mg PO DAILY 07/23/16 [History] Oxygen 2 l NS HS PRN 09/28/16 [History] HYDROcodone/Acet 5/325 mg [[place] 5-325 mg] 1 tab PO Q6H PRN 02/19/17 [History] Omeprazole [PriLOSEC] 40 mg PO DAILY 02/19/17 [History] Potassium Chloride [K-Tab ER] 10 meq PO DAILY 02/19/17 [History] Trazodone HCl 250 mg PO HS 02/19/17 [History] metFORMIN [Glucophage] 1,000 mg PO BID 02/19/17 [History] Ibuprofen [Motrin] 600 mg PO BID PRN #15 tab 02/22/17 [Rx] Doxycycline 100 mg PO BID #14 capsule 08/06/17 [Rx] predniSONE [PredniSONE] 40 mg PO DAILY #10 tablet 08/06/17 [Rx] 3 Allergy/AdvReac Type Severity Reaction Status Date / Time tramadol Allergy Rash Verified 08/06/17 15:42 All Systems PM: A 10-system review of systems was performed and is negative for pertinent findings except as documented above in the HPI. - Constitutional Vitals: Temp Pulse Resp BP Pulse Ox 98.4 F 69 17 97/60 91 08/07/17 20:33 08/07/17 20:33 08/07/17 20:33 08/07/17 20:33 08/07/17 22:00 General appearance: Present: A&O X 3 - Head Head exam: Present: atraumatic, normocephalic - Eye Eye exam: Present: normal appearance - ENT ENT exam: Present: mucous membranes moist - Respiratory Respiratory exam: Present: wheezes (Bilateral expiratory wheezes). Absent: accessory muscle use, respiratory distress - Cardiovascular Cardiovascular exam: Present: RRR, +S1, +S2. Absent: diastolic murmur, gallop, rubs, systolic murmur - GI/Abdominal GI/Abdominal exam: Present: normal bowel sounds, soft, no peritoneal signs. Absent: distended, tenderness - Extremities Exam Extremities exam: Absent: pedal edema - Neurological Exam Neurological exam: Present: oriented X3 - Psychiatric Psychiatric exam: Present: normal affect - Skin Skin exam: Present: warm Internal Med - H&P Results - Labs CBC & Chem 7: 08/07/17 19:00 08/07/17 19:00
[2017-08-07] MEDS ORDERED: Naloxone 0.4 MG/ML INJ IVP PRN (22:47)
[2017-08-07] MEDS: Ipratropium/Albuterol Neb 3 ML IH SCH (23:22)
[2017-08-07] MEDS ORDERED: *HR* OxyCODONE/APAP 5/325 TABLET PO SCH (23:45)
[2017-08-08] MEDS: rOPINIRole 0.25 MG TABLET PO SCH ×2 (00:16→20:08)
[2017-08-08] MEDS: GuaiFENesin/Dextromethorphan TABLET PO PRN (00:54)
[2017-08-08] MEDS: Ipratropium/Albuterol Neb 3 ML IH SCH ×5 (03:37→20:25)
[2017-08-08 04:13] LABS: Basophils % 0.2 %; Hematocrit 41.4 % (35.3-44.9); Hemoglobin 12.8 g/dL (11.5-15.4); Immature Granulocytes % 0.6 % (0-4); Lymphocytes # 0.6 K/mcL (0.6-4.6); Mean Corpuscular HGB Conc 30.9 g/dL (31.6-35.5); Mean Corpuscular Hemoglobin 26.4 pg (28.0-33.3); Mean Corpuscular Volume 85.4 fL (83.0-100.0); Monocytes # 0.2 K/mcL (0.0-1.3); Monocytes % 2.8 %; Neutrophils # 7.7 K/mcL (1.6-8.9); Platelet Count 239 K/mcL (140-400); Red Blood Count 4.85 M/mcL (3.82-4.97); Segmented Neutrophils % 89.4 %
[2017-08-08 04:32] LABS: BUN/Creatinine Ratio 15 (6-26); Blood Urea Nitrogen 10 mg/dL (7-20); Calcium 8.9 mg/dL (8.6-10.8); Carbon Dioxide 27 mEq/L (19-29); Chloride 103 mEq/L (98-109); Glucose 152 mg/dL (70-99); Osmolality,Calculated 288 (280-300); Potassium 4.3 mEq/L (3.5-4.5); Sodium 138 mEq/L (136-145); eGFR For African Americans > 60 (> 60); eGFR For Non-African Americans > 60 (> 60)
[2017-08-08] MEDS ORDERED: Ketorolac 15 MG/ML VIAL IVP ONE (04:55)
[2017-08-08] MEDS: *HR* Heparin 5,000 UNIT/ML VIAL SQ SCH ×2 (05:57→16:29)
[2017-08-08] MEDS: Benzonatate 100 MG CAPSULE PO PRN (05:58)
[2017-08-08] MEDS ORDERED: Furosemide 40 MG/4 ML VIAL IVP ONE (06:24)
[2017-08-08] MEDS: Levofloxacin 750 MG/150 ML 750 MG/150 ML BAG IVPB SCH (08:42)
--- NOTE | 2017-08-08 12:45 | Internal Med Progress Note ---
Date of Encounter: 08/08/17 Time of Encounter: 08:55 - Assessment and plan (1) COPD with acute exacerbation Current Visit: Yes Status: Acute Assessment and plan: Pt reports 4-5 day history of increasing SOB, dyspnea on exertion and non- productive cough. She denies increased use of inhalers and nebulizer treatments due to the fact that she has been out of them for a week. Pt with expiratory wheezing in all posterior gonzales and pt is requiring supplemental 02 to maintain sats > 92%. Continue Duonebs Continue tessalon pears and Mucinex Continue IV Levaquin Continue IV Solumedrol Chest X-Ray 08/07/17 18:44 IMPRESSION: Grossly unchanged appearance of minimal perihilar opacities. Findings again can be seen with mild pulmonary edema or viral etiology. D/ / Yasmany Salomon MD / Yasmany Salomon MD Interpreting Provider: Yasmany Salomon MD (2) Hypertension Current Visit: Yes Status: Chronic Assessment and plan: Well controlled. Continue home medications. Monitor vitals per admission orders. Qualifiers: Hypertension type: essential hypertension Qualified Code(s): I10 - Essential (primary) hypertension (3) Morbid obesity with BMI of 45.0-49.9, adult Current Visit: Yes Status: Chronic Assessment and plan: Chronic. Lifestyle changes. (4) Tobacco abuse Current Visit: Yes Status: Chronic Assessment and plan: Pt denies need for nicotine patch. Will continue to discuss smoking cessation prior to discharge. (5) DVT prophylaxis Current Visit: Yes Status: Acute Assessment and plan: Heparin SQ - Subjective Interval history: Pt was seen and assessed at 0855 this a.m. She is alert and awake and states that she does not feel well. She states that she does feel better than on arrival, but not well enough to go home. She reports difficulty breathing, cough, shortness of breath for about 4-5 days prior to arrival. She reports nonproductive cough and states that she has been out of her inhalers for a week. - Constitutional Vitals: Temp Pulse Resp BP Pulse Ox 98 F 84 16 102/68 93 08/08/17 11:08 08/08/17 11:08 08/08/17 11:20 08/08/17 11:08 08/08/17 11:20 General appearance: Present: cooperative, A&O X 3, morbidly obese, pleasant, no acute distress, answers questions appropriately - Head Head exam: Present: atraumatic, normal inspection, normocephalic - Eye Eye exam: Present: normal appearance, conjuntiva pink, sclera anicteric - Neck Neck exam general surgery: Present: supple, trachea midline. Absent: lymphadenopathy - Respiratory Respiratory exam: Present: CTAB. Absent: accessory muscle use, rales, rhonchi, wheezes - Cardiovascular Cardiovascular exam: Present: RRR, +S1, +S2. Absent: diastolic murmur, gallop, rubs, systolic murmur - GI/Abdominal GI/Abdominal exam: Present: normal bowel sounds, soft. Absent: distended, hepatomegaly, tenderness - Extremities Exam Extremities exam: Present: normal capillary refill, normal inspection, warm, radial pulses palpable and symmetrical. Absent: calf tenderness, cyanotic, pedal edema, tenderness - Neurological Exam Neurological exam: Present: alert, oriented X3, no focal deficits. Absent: facial droop, speech deficit - Skin Skin exam: Present: dry, intact, normal color, warm. Absent: rash Internal Medicine: Result - Labs CBC & Chem 7: 08/08/17 03:27 08/08/17 03:27 Labs: Short CBC 08/08/17 Range/Units 03:27 WBC 8.6 (4.3-11.1) K/mcL Hgb 12.8 (11.5-15.4) g/dL Hct 41.4 (35.3-44.9) % Plt Count 239 (140-400) K/mcL Neutrophils # 7.7 (1.6-8.9) K/mcL BMP 08/08/17 03:27 Sodium 138 Potassium 4.3 Chloride 103 Carbon Dioxide 27 BUN 10 Creatinine 0.68 Glucose 152 H Calcium 8.9 Consult Discharge Plan - Plan Referrals: Jatin Mckoy MD [Primary Care Provider] -
[2017-08-08] MEDS: *HR* OxyCODONE/APAP 5/325 TABLET PO PRN (16:29)
[2017-08-08] MEDS: MethylPREDNISolone 40 MG/ML VIAL IVP SCH (16:29)
--- NOTE | 2017-08-08 18:09 | Electrocardiograph Report ---
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
[2017-08-09] MEDS: MethylPREDNISolone 40 MG/ML VIAL IVP SCH ×4 (00:05→23:41)
[2017-08-09] MEDS ORDERED: *HR* Dextrose 50 % in Water (Syg) 50 ML SYRINGE IVP PRN (00:18)
[2017-08-09] MEDS ORDERED: Dextrose Gel 15 GM PO PRN ×2 (00:18)
[2017-08-09] MEDS ORDERED: D5% in Water 1,000 ML IVC PRN (00:18)
[2017-08-09] MEDS: *HR* OxyCODONE/APAP 5/325 TABLET PO PRN ×3 (02:56→21:36)
[2017-08-09] MEDS: Ipratropium/Albuterol Neb 3 ML IH SCH ×6 (03:50→20:26)
[2017-08-09 03:59] LABS: Basophils % 0.2 %; Eosinophils % 0.2 %; Hematocrit 42.8 % (35.3-44.9); Hemoglobin 13.8 g/dL (11.5-15.4); Immature Granulocytes % 0.3 % (0-4); Lymphocytes # 0.6 K/mcL (0.6-4.6); Lymphocytes % 9.1 %; Mean Corpuscular HGB Conc 32.2 g/dL (31.6-35.5); Mean Corpuscular Hemoglobin 26.6 pg (28.0-33.3); Mean Corpuscular Volume 82.5 fL (83.0-100.0); Mean Platelet Volume 9.5 fL (9.4-12.4); Monocytes # 0.3 K/mcL (0.0-1.3); Monocytes % 4.2 %; Neutrophils # 5.6 K/mcL (1.6-8.9); Platelet Count 255 K/mcL (140-400); Red Blood Count 5.19 M/mcL (3.82-4.97); Red Cell Distribution Width 15.9 % (11.5-14.5)
[2017-08-09 04:17] LABS: BUN/Creatinine Ratio 14 (6-26); Blood Urea Nitrogen 9 mg/dL (7-20); Calcium 9.2 mg/dL (8.6-10.8); Carbon Dioxide 27 mEq/L (19-29); Chloride 101 mEq/L (98-109); Glucose 160 mg/dL (70-99); Osmolality,Calculated 288 (280-300); Potassium 4.1 mEq/L (3.5-4.5); Sodium 138 mEq/L (136-145); eGFR For African Americans > 60 (> 60); eGFR For Non-African Americans > 60 (> 60)
[2017-08-09] MEDS: *HR* Heparin 5,000 UNIT/ML VIAL SQ SCH ×2 (05:18→18:10)
[2017-08-09 06:36] LABS: ABG Base Excess 6 mEq/L (-2 to 3); ABG HCO3 31 mEq/L (21-27); ABG Oxygen Saturation 90 % (95-98); ABG PCO2 46 mmHg (35-45); ABG PH 7.44 pH Units (7.32-7.45); ABG PO2 56 mmHg (85-104); ABG TCO2 33 mEq/L (20-26); Blood Gas Modality NCPAP
[2017-08-09] MEDS: Insulin LISPRO 300 UNITS/3 ML VIAL SQ SCH ×4 (08:46→20:59)
[2017-08-09] MEDS: Levofloxacin 750 MG/150 ML 750 MG/150 ML BAG IVPB SCH (08:46)
[2017-08-09] MEDS ORDERED: *HR* LORazepam 2 MG/ML VIAL IVP ONE (09:04)
[2017-08-09] MEDS ORDERED: NON-FORMULARY MEDICATION 1 EACH EACH (Oxygen [Oxygen] 2 L) NS PRN (10:36)
[2017-08-09] MEDS ORDERED: *HR* HYDROcodone/Acet 5/325 mg TABLET PO PRN (10:36)
[2017-08-09] MEDS ORDERED: Furosemide 20 MG TABLET PO PRN (10:36)
[2017-08-09] MEDS ORDERED: Ondansetron ODT 4 MG TAB.RAPDIS SL PRN (10:37)
[2017-08-09] MEDS: Doxycycline 100 MG CAPSULE PO SCH ×2 (11:12→20:52)
[2017-08-09] MEDS: Aspirin Enteric Coated 81 MG Tablet PO SCH (11:13)
[2017-08-09] MEDS: Gabapentin 400 MG CAPSULE PO SCH ×3 (11:13→20:51)
[2017-08-09] MEDS: Metoprolol 100 MG TABLET PO SCH ×2 (11:13→20:51)
[2017-08-09] MEDS: ARIPiprazole 5 MG TABLET PO SCH (11:13)
[2017-08-09] MEDS: GuaiFENesin/Dextromethorphan TABLET PO PRN ×2 (13:14→21:36)
--- NOTE | 2017-08-09 15:05 | Electrocardiograph Report ---
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
--- NOTE | 2017-08-09 15:13 | Electrocardiograph Report ---
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
--- NOTE | 2017-08-09 17:12 | Internal Med Progress Note ---
Date of Encounter: 08/09/17 Time of Encounter: 09:00 - Assessment and plan (1) COPD with acute exacerbation Current Visit: Yes Status: Acute Assessment and plan: Pt reports 4-5 day history of increasing SOB, dyspnea on exertion and non- productive cough. She denies increased use of inhalers and nebulizer treatments due to the fact that she has been out of them for a week. Pt with expiratory wheezing in all posterior gonzales and pt is requiring supplemental 02 to maintain sats > 92%. Sputum culture is negative, flu swab is negative, Legionella and strep pneumo are negative. Patient is afebrile, she has no tachycardia, she is wearing 4 L of oxygen to maintain her sats. Respirations are unlabored. She is normotensive. ABG with pH 7.44 PCO2 46 PO2 56 bicarbonate 31 O2 sat 90. Continue Duonebs Continue tessalon pearls and Mucinex Continue IV Levaquin Continue IV Solumedrol Chest X-Ray 08/07/17 18:44 IMPRESSION: Grossly unchanged appearance of minimal perihilar opacities. Findings again can be seen with mild pulmonary edema or viral etiology. D/ / Yasmany Salomon MD / Yasmany Salomon MD Interpreting Provider: Yasmany Salomon MD (2) Hypertension Current Visit: Yes Status: Chronic Assessment and plan: Well controlled. Continue home medications. Monitor vitals per admission orders. Qualifiers: Hypertension type: essential hypertension Qualified Code(s): I10 - Essential (primary) hypertension (3) Morbid obesity with BMI of 45.0-49.9, adult Current Visit: Yes Status: Chronic Assessment and plan: Chronic. Lifestyle changes. (4) Tobacco abuse Current Visit: Yes Status: Chronic Assessment and plan: Pt denies need for nicotine patch. Will continue to discuss smoking cessation prior to discharge. (5) DVT prophylaxis Current Visit: Yes Status: Acute Assessment and plan: Heparin SQ, encourage ambulation. - Time Spent With Patient less than 15 minutes - Subjective Interval history: Pt was seen and assessed at 0900 this a.m. She is alert and awake and states that she does not feel well. She denies new or change in cough, denies fever, chills, n/v/d, abdominal pain, dizziness or headache. - Constitutional Vitals: Temp Pulse Resp BP Pulse Ox 97.5 F L 79 16 133/85 92 08/09/17 15:14 08/09/17 15:14 08/09/17 16:08 08/09/17 15:14 08/09/17 16:08 General appearance: Present: cooperative, A&O X 3, morbidly obese, pleasant, no acute distress, answers questions appropriately - Head Head exam: Present: atraumatic, normal inspection, normocephalic - Eye Eye exam: Present: conjuntiva pink, sclera anicteric - Neck Neck exam general surgery: Present: normal inspection, supple, trachea midline. Absent: lymphadenopathy - Respiratory Respiratory exam: Present: decreased breath sounds, CTAB. Absent: accessory muscle use, rales, rhonchi, wheezes, tachypnea - Cardiovascular Cardiovascular exam: Present: RRR, +S1, +S2. Absent: diastolic murmur, gallop, rubs, systolic murmur - GI/Abdominal GI/Abdominal exam: Present: distended, normal bowel sounds, soft, no peritoneal signs. Absent: tenderness - Extremities Exam Extremities exam: Present: normal capillary refill, normal inspection, warm, radial pulses palpable and symmetrical. Absent: calf tenderness, cyanotic, pedal edema, tenderness - Neurological Exam Neurological exam: Present: CN II-XII intact, oriented X3, no focal deficits. Absent: facial droop, speech deficit - Skin Skin exam: Present: dry, intact, normal color, warm. Absent: rash Internal Medicine: Result - Labs CBC & Chem 7: 08/09/17 03:17 08/09/17 03:17 Labs: Short CBC 08/09/17 Range/Units 03:17 WBC 6.5 (4.3-11.1) K/mcL Hgb 13.8 (11.5-15.4) g/dL Hct 42.8 (35.3-44.9) % Plt Count 255 (140-400) K/mcL Neutrophils # 5.6 (1.6-8.9) K/mcL BMP 08/09/17 03:17 Sodium 138 Potassium 4.1 Chloride 101 Carbon Dioxide 27 BUN 9 Creatinine 0.64 Glucose 160 H Calcium 9.2 - ABG Interpretation ABG results: ABG ABG pH 7.44 pH Units (7.32-7.45) 08/09/17 06:33 ABG pCO2 46 mmHg (35-45) H 08/09/17 06:33 ABG pO2 56 mmHg (85-104) L 08/09/17 06:33 ABG O2 Saturation 90 % (95-98) L 08/09/17 06:33 Consult Discharge Plan - Plan Referrals: Jatin Mckoy MD [Primary Care Provider] - 08/17/17 2:15 pm
[2017-08-09] MEDS: rOPINIRole 0.25 MG TABLET PO SCH (20:51)
[2017-08-09] MEDS: traZODone 50 MG TABLET PO PRN (20:51)
[2017-08-09] MEDS ORDERED: NON-FORMULARY MEDICATION 1 EACH EACH (Ropinirole Hcl [Requip] 0.5 MG) PO SCH (21:00)
[2017-08-10] MEDS: Ipratropium/Albuterol Neb 3 ML IH SCH ×5 (00:14→15:56)
[2017-08-10 04:46] LABS: Basophils % 0.1 %; Hemoglobin 13.7 g/dL (11.5-15.4); Immature Granulocytes % 0.7 % (0-4); Lymphocytes # 1.1 K/mcL (0.6-4.6); Mean Corpuscular HGB Conc 31.1 g/dL (31.6-35.5); Mean Corpuscular Volume 83.7 fL (83.0-100.0); Mean Platelet Volume 9.4 fL (9.4-12.4); Monocytes # 0.4 K/mcL (0.0-1.3); Monocytes % 5.8 %; Neutrophils # 5.2 K/mcL (1.6-8.9); Platelet Count 285 K/mcL (140-400); Red Blood Count 5.26 M/mcL (3.82-4.97); Segmented Neutrophils % 77.4 %
[2017-08-10 05:02] LABS: BUN/Creatinine Ratio 21 (6-26); Blood Urea Nitrogen 14 mg/dL (7-20); Calcium 9.2 mg/dL (8.6-10.8); Carbon Dioxide 28 mEq/L (19-29); Chloride 101 mEq/L (98-109); Glucose 148 mg/dL (70-99); Osmolality,Calculated 287 (280-300); Potassium 4.7 mEq/L (3.5-4.5); Sodium 137 mEq/L (136-145); eGFR For African Americans > 60 (> 60); eGFR For Non-African Americans > 60 (> 60)
[2017-08-10] MEDS: *HR* Heparin 5,000 UNIT/ML VIAL SQ SCH ×3 (05:56→21:18)
[2017-08-10] MEDS: *HR* OxyCODONE/APAP 5/325 TABLET PO PRN ×2 (05:56→17:22)
[2017-08-10] MEDS: Insulin LISPRO 300 UNITS/3 ML VIAL SQ SCH ×4 (07:40→21:18)
[2017-08-10] MEDS: Levofloxacin 750 MG/150 ML 750 MG/150 ML BAG IVPB SCH (07:43)
[2017-08-10] MEDS: MethylPREDNISolone 40 MG/ML VIAL IVP SCH ×4 (07:44→23:46)
[2017-08-10] MEDS: Gabapentin 400 MG CAPSULE PO SCH ×3 (07:44→21:18)
[2017-08-10] MEDS: Metoprolol 100 MG TABLET PO SCH ×2 (07:44→21:17)
[2017-08-10] MEDS: ARIPiprazole 5 MG TABLET PO SCH (07:44)
[2017-08-10] MEDS: Aspirin Enteric Coated 81 MG Tablet PO SCH (07:44)
[2017-08-10] MEDS: Doxycycline 100 MG CAPSULE PO SCH (07:44)
--- NOTE | 2017-08-10 09:09 | Internal Med Progress Note ---
Date of Encounter: 08/10/17 Time of Encounter: 08:00 - Assessment and plan (1) Acute and chronic respiratory failure ([id number]) Current Visit: Yes Status: Acute Assessment and plan: Evelin Johnston is a 51-year-old female with past medical history CAD, diabetes, COPD, hypertension and chronic respiratory failure presented to [facility] on 08/07/2017 with complaints of shortness of breath. 1. Acute COPD exacerbation: has known COPD. Was evaluated in the ED 08/06/17 with similar complaints and discharged home on steroids and doxycycline. She failed outpatient treatment with worsening shortness of breath and increased oxygen need. CXR with perihilar opacities concerning for pulmonary edema or viral etiology. Clinically does not appear overloaded, no rales or edema on exam. Appears to be acute COPD exacerbation with diffuse wheezing and productive cough. Continue IV Levaquin, IV steroids, DuoNeb's. Resp PCR, urinary antigens pending 2. Acute on chronic respiratory failure: wears O2 at 2 L at at bedtime only at home. Likely secondary to COPD exacerbation however she has had episodes of tachycardia and hypotension. Wells score with low probability. D-dimer pending. If elevated check chest CTA. Continue treating COPD exacerbation as noted above. Wean to home O2 dose as able. 3. Diabetes: Per history. Holding home oral hypoglycemics. SSI. Monitor blood sugar and titrate PRN 4. CAD: per hx. asymptomatic. Denies chest pain. Continue home ASA, statin, BB. 5. HTN: per hx. BP controlled. Cont home BP education. Monitor BP and titrate PRN 6. DVT prophylaxis: Heparin Qualifiers: Respiratory failure complication: hypoxia Qualified Code(s): J96.21 - Acute and chronic respiratory failure with hypoxia (2) Acute exacerbation of chronic obstructive airways disease Current Visit: Yes Status: Acute (3) CAD (coronary artery disease) Current Visit: No Status: Chronic Qualifiers: Coronary Disease-Associated Artery/Lesion type: [place] artery [place] vs. transplanted heart: [place] heart Associated angina: angina presence unspecified Qualified Code(s): I25.10 - Atherosclerotic heart disease of [place] coronary artery without angina pectoris (4) Depression Current Visit: No Status: Chronic Qualifiers: Depression Type: unspecified Qualified Code(s): F32.9 - Major depressive disorder, single episode, unspecified (5) Hypertension Current Visit: Yes Status: Chronic Qualifiers: Hypertension type: essential hypertension Qualified Code(s): I10 - Essential (primary) hypertension - Subjective Interval history: Seen and examined at bedside. Patient is new to me, information obtained from chart review and patient report. Patient says she overall feels better but still not back to baseline. Still with shortness of breath, worse on exertion. Has a productive cough at times. Feels tight and wheezy. No fevers or chills. No chest pain. Wears oxygen at 2 L at night only at home, now requiring 3 L [id number]. - Constitutional Vitals: Temp Pulse Resp BP Pulse Ox 97.9 F 75 16 130/86 90 08/10/17 07:21 08/10/17 07:21 08/10/17 08:12 08/10/17 07:21 08/10/17 08:12 General appearance: Present: cooperative, A&O X 3, morbidly obese, pleasant, no acute distress, answers questions appropriately - Head Head exam: Present: atraumatic, normocephalic - Eye Eye exam: Present: PERRL, conjuntiva pink, sclera anicteric Pupils: Present: PERRL - Neck Neck exam general surgery: Present: supple, trachea midline. Absent: lymphadenopathy - Respiratory Respiratory exam: Present: wheezes. Absent: accessory muscle use, rales, rhonchi Additional comments: O2 via nasal cannula at 3 L/m - Cardiovascular Cardiovascular exam: Present: RRR, +S1, +S2. Absent: diastolic murmur, gallop, rubs, systolic murmur - GI/Abdominal GI/Abdominal exam: Present: normal bowel sounds, soft, no peritoneal signs. Absent: distended, tenderness - Extremities Exam Extremities exam: Present: warm, radial pulses palpable and symmetrical. Absent : calf tenderness, cyanotic, pedal edema - Neurological Exam Neurological exam: Present: CN II-XII intact, oriented X3, no focal deficits. Absent: pronater drift, facial droop, speech deficit - Skin Skin exam: Present: dry, intact Internal Medicine: Result - Labs CBC & Chem 7: 08/10/17 04:12 08/10/17 04:12 Labs: Short CBC 08/10/17 Range/Units 04:12 WBC 6.7 (4.3-11.1) K/mcL Hgb 13.7 (11.5-15.4) g/dL Hct 44.0 (35.3-44.9) % Plt Count 285 (140-400) K/mcL Neutrophils # 5.2 (1.6-8.9) K/mcL BMP 08/10/17 04:12 Sodium 137 Potassium 4.7 H Chloride 101 Carbon Dioxide 28 BUN 14 Creatinine 0.67 Glucose 148 H Calcium 9.2 - ABG Interpretation ABG results: ABG ABG pH 7.44 pH Units (7.32-7.45) 08/09/17 06:33 ABG pCO2 46 mmHg (35-45) H 08/09/17 06:33 ABG pO2 56 mmHg (85-104) L 08/09/17 06:33 ABG O2 Saturation 90 % (95-98) L 08/09/17 06:33 Consult Discharge Plan - Plan Referrals: Jatin Mckoy MD [Primary Care Provider] - 08/17/17 2:15 pm
[2017-08-10 11:52] LABS: Adenovirus Not Detected (Not Detect); Bordetella Pertussis Not Detected (Not Detect); Chlamydophila pneumoniae Not Detected (Not Detect); Coronavirus 229E Not Detected (Not Detect); Coronavirus HKU1 Not Detected (Not Detect); Coronavirus NL63 Not Detected (Not Detect); Coronavirus OC43 Not Detected (Not Detect); Human Metapneumovirus Not Detected (Not Detect); Human Rhinovirus/Enterovirus Not Detected (Not Detect); Influenza A Subtype 2009 H1 Not Detected (Not Detect); Influenza A Untypeable Not Detected (Not Detect); Influenza B Not Detected (Not Detect); Mycoplasma pneumoniae Not Detected (Not Detect); Parainfluenza Virus 1 Not Detected (Not Detect); Parainfluenza Virus 2 Not Detected (Not Detect); Parainfluenza Virus 3 Not Detected (Not Detect); Parainfluenza Virus 4 Not Detected (Not Detect); Respiratory Syncytial Virus ***DETECTED*** (Not Detect)
[2017-08-10] MEDS: Levalbuterol Neb 1.25 MG/3 ML IH SCH ×2 (16:01→21:25)
[2017-08-10] MEDS: GuaiFENesin/Dextromethorphan TABLET PO PRN (17:22)
[2017-08-10] MEDS: traZODone 50 MG TABLET PO PRN (21:17)
[2017-08-10] MEDS: Benzonatate 100 MG CAPSULE PO PRN (21:17)
[2017-08-10] MEDS: rOPINIRole 0.25 MG TABLET PO SCH (21:17)
[2017-08-11] MEDS: Levalbuterol Neb 1.25 MG/3 ML IH SCH ×4 (03:40→21:43)
[2017-08-11 04:45] LABS: Hematocrit 45.7 % (35.3-44.9); Hemoglobin 14.4 g/dL (11.5-15.4); Mean Corpuscular HGB Conc 31.5 g/dL (31.6-35.5); Mean Corpuscular Hemoglobin 26.1 pg (28.0-33.3); Mean Corpuscular Volume 82.8 fL (83.0-100.0); Mean Platelet Volume 9.5 fL (9.4-12.4); Platelet Count 292 K/mcL (140-400); Red Blood Count 5.52 M/mcL (3.82-4.97); Red Cell Distribution Width 15.9 % (11.5-14.5)
[2017-08-11 04:49] LABS: Blood Urea Nitrogen 16 mg/dL (7-20); Carbon Dioxide 28 mEq/L (19-29); Chloride 102 mEq/L (98-109); Sodium 139 mEq/L (136-145)
[2017-08-11 04:50] LABS: BUN/Creatinine Ratio 24 (6-26); Calcium 9.3 mg/dL (8.6-10.8); Glucose 161 mg/dL (70-99); Osmolality,Calculated 293 (280-300); eGFR For African Americans > 60 (> 60); eGFR For Non-African Americans > 60 (> 60)
[2017-08-11] MEDS: *HR* Heparin 5,000 UNIT/ML VIAL SQ SCH ×3 (05:41→21:17)
[2017-08-11] MEDS: MethylPREDNISolone 40 MG/ML VIAL IVP SCH ×3 (05:41→18:45)
[2017-08-11] MEDS: *HR* OxyCODONE/APAP 5/325 TABLET PO PRN ×2 (05:44→16:21)
[2017-08-11] MEDS: Metoprolol 100 MG TABLET PO SCH ×2 (09:29→21:16)
[2017-08-11] MEDS: GuaiFENesin/Dextromethorphan TABLET PO SCH ×2 (09:30→21:17)
[2017-08-11] MEDS: Aspirin Enteric Coated 81 MG Tablet PO SCH (09:30)
[2017-08-11] MEDS: ARIPiprazole 5 MG TABLET PO SCH (09:30)
[2017-08-11] MEDS: Insulin LISPRO 300 UNITS/3 ML VIAL SQ SCH ×4 (09:30→21:13)
[2017-08-11] MEDS: Gabapentin 400 MG CAPSULE PO SCH ×3 (09:30→21:17)
[2017-08-11] MEDS: Levofloxacin 750 MG/150 ML 750 MG/150 ML BAG IVPB SCH (09:34)
--- NOTE | 2017-08-11 13:44 | Internal Med Progress Note ---
Date of Encounter: 08/11/17 Time of Encounter: 13:42 - Assessment and plan (1) Acute and chronic respiratory failure ([id number]) Current Visit: Yes Status: Acute Assessment and plan: Evelin Johnston is a 51-year-old female with past medical history CAD, diabetes, COPD, hypertension and chronic respiratory failure presented to [facility] on 08/07/2017 with complaints of shortness of breath. 1. Acute COPD exacerbation: has known COPD. Was evaluated in ED 08/06/17 with similar complaints and discharged home on steroids and doxycycline. She failed outpatient treatment with worsening shortness of breath and increased oxygen need. CXR with perihilar opacities concerning for pulmonary edema or viral etiology. Clinically does not appear overloaded, no rales or edema on exam. Appears to be acute COPD exacerbation with diffuse wheezing and productive cough. Continue IV Levaquin, IV steroids, DuoNeb's. Pulmonology consulted with positive RSV and slow progress. 2. RSV: resp PCR positive for RSV. Continue symptomatic care. Pulmonology consulted 2. Acute on chronic respiratory failure: wears O2 at 2 L at at bedtime only at home. Chest CTA negative for pulmonary embolism. Secondary to COPD exacerbation and RSV. Continue treating COPD exacerbation as noted above. Wean to home O2 dose as able. 3. Diabetes: Per history. Holding home oral hypoglycemics. SSI. Monitor blood sugar and titrate PRN 4. CAD: per hx. 11/2015 [facility] with nonobstructive CAD with proximal LAD 20% lesion. 01/2017 TTE with EF 60%. Asymptomatic. Denies chest pain. Continue home ASA, statin, BB. 5. HTN: per hx. BP controlled. Cont home BP education. Monitor BP and titrate PRN 6. DVT prophylaxis: Heparin Qualifiers: Respiratory failure complication: hypoxia Qualified Code(s): J96.21 - Acute and chronic respiratory failure with hypoxia (2) Acute exacerbation of chronic obstructive airways disease Current Visit: Yes Status: Acute (3) CAD (coronary artery disease) Current Visit: No Status: Chronic Qualifiers: Coronary Disease-Associated Artery/Lesion type: [place] artery [place] vs. transplanted heart: [place] heart Associated angina: angina presence unspecified Qualified Code(s): I25.10 - Atherosclerotic heart disease of [place] coronary artery without angina pectoris (4) Depression Current Visit: No Status: Chronic Qualifiers: Depression Type: unspecified Qualified Code(s): F32.9 - Major depressive disorder, single episode, unspecified (5) Hypertension Current Visit: Yes Status: Chronic Qualifiers: Hypertension type: essential hypertension Qualified Code(s): I10 - Essential (primary) hypertension - Subjective Interval history: Seen and examined at bedside. Patient says she feels a little better but not back to baseline. Still shortness of breath gets worse with exertion and relieved with rest. No chest pain. Productive cough at times. No fevers or chills last night. He does not feel like she can go home today. - Constitutional Vitals: Temp Pulse Resp BP Pulse Ox 97.7 F 63 22 122/75 95 08/11/17 11:40 08/11/17 11:40 08/11/17 11:40 08/11/17 11:40 08/11/17 11:40 General appearance: Present: cooperative, A&O X 3, morbidly obese, pleasant, no acute distress, answers questions appropriately - Head Head exam: Present: atraumatic, normocephalic - Eye Eye exam: Present: PERRL, conjuntiva pink, sclera anicteric Pupils: Present: PERRL - Neck Neck exam general surgery: Present: supple, trachea midline. Absent: lymphadenopathy - Respiratory Respiratory exam: Present: wheezes. Absent: accessory muscle use, rales, rhonchi - Cardiovascular Cardiovascular exam: Present: RRR, +S1, +S2. Absent: diastolic murmur, gallop, rubs, systolic murmur - GI/Abdominal GI/Abdominal exam: Present: normal bowel sounds, soft, no peritoneal signs. Absent: distended, tenderness - Extremities Exam Extremities exam: Present: warm, radial pulses palpable and symmetrical. Absent : calf tenderness, cyanotic, pedal edema - Neurological Exam Neurological exam: Present: CN II-XII intact, oriented X3, no focal deficits. Absent: pronater drift, facial droop, speech deficit - Skin Skin exam: Present: dry, intact Internal Medicine: Result - Labs CBC & Chem 7: 08/11/17 03:59 08/11/17 03:59 Labs: Short CBC 08/11/17 Range/Units 03:59 WBC 10.5 D (4.3-11.1) K/mcL Hgb 14.4 (11.5-15.4) g/dL Hct 45.7 H (35.3-44.9) % Plt Count 292 (140-400) K/mcL BMP 08/11/17 03:59 Sodium 139 Potassium 5.0 H Chloride 102 Carbon Dioxide 28 BUN 16 Creatinine 0.66 Glucose 161 H Calcium 9.3 - ABG Interpretation ABG results: ABG ABG pH 7.44 pH Units (7.32-7.45) 08/09/17 06:33 ABG pCO2 46 mmHg (35-45) H 08/09/17 06:33 ABG pO2 56 mmHg (85-104) L 08/09/17 06:33 ABG O2 Saturation 90 % (95-98) L 08/09/17 06:33 PT/INR, D-dimer D-Dimer 699 ng/mLFEU (0-500) H 08/10/17 09:45 - Impressions Impressions Chest CTA 08/10/17 14:30 IMPRESSION: 1. No evidence of pulmonary embolism. 2. Evaluation of the pulmonary parenchyma limited by motion artifact. Patchy ground-glass opacities are seen at the right apex and in the left upper lobe, and could be related to atypical infection. 3. Borderline enlarged right paratracheal lymph node, which may be reactive. D/ / 08/10/2017 15:47:14 Chandan Burton MD / Lenora Barnett Interpreting Provider: Chandan Burton MD Consult Discharge Plan - Plan Referrals: Jatin Mckoy MD [Primary Care Provider] - 08/17/17 2:15 pm
--- NOTE | 2017-08-11 14:14 | Pulmonology Consult Note ---
Date of Encounter: 08/11/17 Time of Encounter: 14:13 Assessment and Plan (1) Acute bronchitis with bronchospasm Current Visit: Yes Status: Acute I reviewed the patient's prior PFTs she does not have technical description of COPD as there is no obstruction on PFTs she has a chronic bronchitis phenotype which is acutely exacerbated. This is related to infectious process. I agree with continued IV steroids today with transitioned to by mouth prednisone 40 mg to complete a two-week taper. I would start Symbicort 160/4.52 puffs twice a day she can be discharged with this. She does be discharged with a short acting beta agonist as needed. RSV is notorious complication to chronic airways disease and is not surprising that the severity is such (2) RSV (respiratory syncytial virus pneumonia) Current Visit: Yes Status: Acute De-escalate antibiotics to azithromycin to complete a 5 day course for anti- inflammatory properties (3) Acute and chronic respiratory failure ([id number]) Current Visit: Yes Status: Acute Continue to wean FiO2 to keep saturation greater than 88% around 92% she has oxygen at home she should complete a walking pulse ox test and further evaluation after the discharge in outpatient clinic to evaluate for how much oxygen she will need on a more permanent basis I suspect in the short-term she may be dependent on oxygen Qualifiers: Respiratory failure complication: hypoxia Qualified Code(s): J96.21 - Acute and chronic respiratory failure with hypoxia (4) Morbid obesity with BMI of 45.0-49.9, adult Current Visit: Yes Status: Chronic Weight loss encouraged (5) Tobacco abuse Current Visit: Yes Status: Chronic (6) Obstructive sleep apnea Current Visit: No Status: Chronic (7) Restrictive airway disease Current Visit: No Status: Chronic Notable on her PFTs is a restrictive lung disease however encouraging she had a high-resolution CT scan in the past without any evidence of interstitial lung disease I suspect that her underlying restriction is based primarily on obesity. Appreciate being consulted on this patient. Please call with any questions pulmonary we will sign off. She will need follow-up pulmonary evaluation in the clinic with her primary corporate safety director in 2-4 weeks of the time of discharge History of Present Illness Consult date: 08/11/17 Requesting physician: Guera Odell Reason for consult: COPD Chief complaint: Shortness Of Breath History of present illness: This is a pleasant 51-year-old woman with a past medical history of chronic bronchitis morbid obesity obstructive sleep apnea who presented with symptoms of upper respiratory tract infection and started last Wednesday after she was exposed to some children who also ended up becoming sick. She had increased cough that was difficult to produce any phlegm but now has turned into a yellowish phlegm. She also was complaining of chest tightness and shortness of breath she initially had gone to her primary care physician where she totaled go the ED while in the ED she was given steroids and antibiotics and discharge however she returned shortly thereafter because of worsening symptoms and has been admitted ever since. Respiratory infectious panel is notably positive for RSV. She had a CTA that was negative for filling defect but notable for right upper lobe opacities consistent with pneumonia. She started smoking at age 24 when smoking up to the time of admission to the hospital smokes about a pack a day. She says that she is adamant about stopping smoking now I encouraged her on this. She also was prescribed a CPAP machine at home for obstructive sleep apnea but she is noncompliant with this secondary to mask anxiety. She works at [employer] where she is exposed to fumes and dust and other individual smoke in the house she does not have any exotic pets no recent travel Past Med Surg Social Fam HX - Past Medical History Medical history: COPD, diabetes, hyperlipidemia, hypertension Psychiatric history: anxiety, depression - Past Surgical History Surgical History: breast surgery, hysterectomy, orthopedic, other - Social History Smoking Status: Current every day smoker Packs per day: 1 Smokeless Tobacco Status: No Alcohol use: rarely Drug use: none - Family History Father Family Member Ethnicity: Non- Living Status: Hx Family GI Disorders: Yes (cirrhosis) Mother Family Member Ethnicity: Non- Living Status: Still Living Hx Family Cardiac Disorders: Yes (HTN, Afib) Brother Family Member Ethnicity: Non- Living Status: Still Living Hx Family Respiratory Disorders: Yes (COPD) Hx Family Endocrine Disorder: Yes (DM) Medications and Allergies Aripiprazole [Abilify] 5 mg PO QAM 11/05/15 [History] Duloxetine HCl [Cymbalta] 60 mg PO QAM 11/05/15 [History] Lisinopril [Zestril] 10 mg PO QAM 11/05/15 [History] Metoprolol [Lopressor] 150 mg PO BID 11/05/15 [History] Pravastatin Sodium [Pravachol] 40 mg PO QPM 11/05/15 [History] Ropinirole HCl [Requip] 0.5 mg PO HS 11/05/15 [History] Aspirin [Adult Low Dose Aspirin EC] 81 mg PO DAILY 12/04/15 [History] Furosemide [Lasix] 20 mg PO DAILY PRN 07/23/16 [History] Oxygen 2 l NS HS PRN 09/28/16 [History] HYDROcodone/Acet 5/325 mg [[place] 5-325 mg] 1 tab PO Q6H PRN 02/19/17 [History] Omeprazole [PriLOSEC] 40 mg PO BID 02/19/17 [History] Potassium Chloride [K-Tab ER] 10 meq PO BID 02/19/17 [History] Trazodone HCl 100 - 200 mg PO HS PRN 02/19/17 [History] metFORMIN [Glucophage] 1,000 mg PO BID 02/19/17 [History] Doxycycline 100 mg PO BID #14 capsule 08/06/17 [Rx] predniSONE [PredniSONE] 40 mg PO DAILY #10 tablet 08/06/17 [Rx] Gabapentin [Neurontin] 800 mg PO TID 08/08/17 [History] 3 Allergy/AdvReac Type Severity Reaction Status Date / Time tramadol Allergy Rash Verified 08/06/17 15:42 All Systems: A 10-system review of systems was performed and is negative for pertinent findings except as documented above in the HPI. Physical Examination Vital Signs: Vital Signs, Last 4 Hours Temp Pulse Resp BP Pulse Ox 08/11/17 11:40 97.7 F 63 22 122/75 95 08/11/17 10:52 16 94 General appearance: no acute distress Eyes: nonicteric ENT: oropharynx moist Neck: supple Auscultation: bilateral: diminished breath sounds, wheezes (expiratory ) Cardiovascular: regular rate and rhythm Gastrointestinal: normoactive bowel sounds Integumentary: normal Extremities: no cyanosis, no edema, no clubbing Musculoskeletal: no deformities normal mental status, non-focal exam mood appropriate Results - Laboratory Findings CBC and BMP: 08/11/17 03:59 08/11/17 03:59 ABG ABG pH 7.44 pH Units (7.32-7.45) 08/09/17 06:33 ABG pCO2 46 mmHg (35-45) H 08/09/17 06:33 ABG pO2 56 mmHg (85-104) L 08/09/17 06:33 ABG O2 Saturation 90 % (95-98) L 08/09/17 06:33 PT/INR, D-dimer D-Dimer 699 ng/mLFEU (0-500) H 08/10/17 09:45 Abnormal lab findings: Abnormal lab results RBC 5.52 M/mcL (3.82-4.97) H 08/11/17 03:59 Hct 45.7 % (35.3-44.9) H 08/11/17 03:59 MCV 82.8 fL (83.0-100.0) L 08/11/17 03:59 MCH 26.1 pg (28.0-33.3) L 08/11/17 03:59 MCHC 31.5 g/dL (31.6-35.5) L 08/11/17 03:59 RDW 15.9 % (11.5-14.5) H 08/11/17 03:59 D-Dimer 699 ng/mLFEU (0-500) H 08/10/17 09:45 ABG pCO2 46 mmHg (35-45) H 08/09/17 06:33 ABG pO2 56 mmHg (85-104) L 08/09/17 06:33 ABG HCO3 31 mEq/L (21-27) H 08/09/17 06:33 ABG Total CO2 33 mEq/L (20-26) H 08/09/17 06:33 ABG O2 Saturation 90 % (95-98) L 08/09/17 06:33 ABG Base Excess 6 mEq/L (-2 to 3) H 08/09/17 06:33 Potassium 5.0 mEq/L (3.5-4.5) H 08/11/17 03:59 Glucose 161 mg/dL (70-99) H 08/11/17 03:59 POC Glucose 217 (58-89) H 08/10/17 20:23 RSV (PCR) DETECTED (Not Detect) A 08/10/17 10:15 - Diagnostic Findings Chest x-ray: report reviewed, image reviewed CT scan - chest: report reviewed, image reviewed - Clinical Findings Intake & Output: Intake & Output 08/10/17 08/11/17 08/11/17 23:59 07:59 15:59 Intake Total 740 / 740 1240 / 1240 Balance 740 / 740 1240 / 1240 Weight 109.497 kg Consult Discharge Plan - Plan Referrals: Jatin Mckoy MD [Primary Care Provider] - 08/17/17 2:15 pm
[2017-08-11] MEDS: Benzonatate 100 MG CAPSULE PO PRN (16:22)
[2017-08-11] MEDS: rOPINIRole 0.25 MG TABLET PO SCH (21:15)
[2017-08-11] MEDS: traZODone 50 MG TABLET PO PRN (21:20)
[2017-08-12] MEDS: MethylPREDNISolone 40 MG/ML VIAL IVP SCH ×3 (00:41→11:23)
[2017-08-12] MEDS: Levalbuterol Neb 1.25 MG/3 ML IH SCH ×4 (03:49→22:38)
[2017-08-12 04:45] LABS: Hematocrit 46.1 % (35.3-44.9); Hemoglobin 14.4 g/dL (11.5-15.4); Mean Corpuscular HGB Conc 31.2 g/dL (31.6-35.5); Mean Corpuscular Hemoglobin 25.8 pg (28.0-33.3); Mean Corpuscular Volume 82.5 fL (83.0-100.0); Mean Platelet Volume 9.6 fL (9.4-12.4); Platelet Count 326 K/mcL (140-400); Red Blood Count 5.59 M/mcL (3.82-4.97); Red Cell Distribution Width 15.9 % (11.5-14.5)
[2017-08-12 04:46] LABS: BUN/Creatinine Ratio 24 (6-26); Blood Urea Nitrogen 17 mg/dL (7-20); Calcium 9.4 mg/dL (8.6-10.8); Carbon Dioxide 32 mEq/L (19-29); Chloride 97 mEq/L (98-109); Glucose 191 mg/dL (70-99); Osmolality,Calculated 291 (280-300); Potassium 4.5 mEq/L (3.5-4.5); Sodium 137 mEq/L (136-145); eGFR For African Americans > 60 (> 60); eGFR For Non-African Americans > 60 (> 60)
[2017-08-12] MEDS: *HR* OxyCODONE/APAP 5/325 TABLET PO PRN ×2 (05:34→16:15)
[2017-08-12] MEDS: *HR* Heparin 5,000 UNIT/ML VIAL SQ SCH ×3 (05:35→20:53)
[2017-08-12] MEDS: Insulin LISPRO 300 UNITS/3 ML VIAL SQ SCH ×4 (08:31→20:51)
[2017-08-12] MEDS: ARIPiprazole 5 MG TABLET PO SCH (08:31)
[2017-08-12] MEDS: Aspirin Enteric Coated 81 MG Tablet PO SCH (08:31)
[2017-08-12] MEDS: Metoprolol 100 MG TABLET PO SCH ×2 (08:32→20:52)
[2017-08-12] MEDS: GuaiFENesin/Dextromethorphan TABLET PO SCH ×2 (08:33→20:52)
[2017-08-12] MEDS: Gabapentin 400 MG CAPSULE PO SCH ×3 (08:33→20:52)
[2017-08-12] MEDS: Budesonide/Formoterol 160/4.5 MDI IH SCH ×2 (10:26→22:38)
[2017-08-12] MEDS: Azithromycin 500 MG in D5% in Water 250 ML IVPB SCH (11:22)
--- NOTE | 2017-08-12 14:37 | Internal Med Progress Note ---
Date of Encounter: 08/12/17 Time of Encounter: 14:25 - Assessment and plan (1) Acute and chronic respiratory failure ([id number]) Current Visit: Yes Status: Acute Assessment and plan: Evelin Johnston is a 51-year-old female with past medical history CAD, diabetes, COPD, hypertension and chronic respiratory failure presented to [facility] on 08/07/2017 with complaints of shortness of breath. 1. Acute bronchitis with bronchospasm: evaluated in ED 08/06/17 with similar complaints and discharged home on steroids and doxycycline. She failed outpatient treatment with worsening shortness of breath and increased oxygen need. CXR with perihilar opacities concerning for pulmonary edema or viral etiology. Clinically does not appear overloaded, no rales or edema on exam. Change ATB to azithromycin and transition IV steroids to prednisone taper per pulmonology recommendation. Symbicort added. 2. RSV: resp PCR positive for RSV. Evaluated by Pulmonology who recommended changing ATB to azithromycin for anti-inflammatory properties. Continue supportive care. 3. Acute on chronic respiratory failure: wears O2 at 2 L at at bedtime only at home. Chest CTA negative for pulmonary embolism. Secondary to bronchitis and RSV. Continue treating underlying causes as noted above. Wean to home O2 dose as able. 4. Diabetes: Per history. Holding home oral hypoglycemics. SSI. Monitor blood sugar and titrate PRN 5. CAD: per hx. 11/2015 [facility] with nonobstructive CAD with proximal LAD 20% lesion. 01/2017 TTE with EF 60%. Asymptomatic. Denies chest pain. Continue home ASA, statin, BB. 6. HTN: per hx. BP controlled. Cont home BP education. Monitor BP and titrate PRN 7. DVT prophylaxis: Heparin Qualifiers: Respiratory failure complication: hypoxia Qualified Code(s): J96.21 - Acute and chronic respiratory failure with hypoxia (2) Acute exacerbation of chronic obstructive airways disease Current Visit: Yes Status: Acute (3) CAD (coronary artery disease) Current Visit: No Status: Chronic Qualifiers: Coronary Disease-Associated Artery/Lesion type: [place] artery [place] vs. transplanted heart: [place] heart Associated angina: angina presence unspecified Qualified Code(s): I25.10 - Atherosclerotic heart disease of [place] coronary artery without angina pectoris (4) Depression Current Visit: No Status: Chronic Qualifiers: Depression Type: unspecified Qualified Code(s): F32.9 - Major depressive disorder, single episode, unspecified (5) Hypertension Current Visit: Yes Status: Chronic Qualifiers: Hypertension type: essential hypertension Qualified Code(s): I10 - Essential (primary) hypertension - Subjective Interval history: Seen and examined at bedside. Says she is breathing better but still does not feel like she can go home. Still with wheezing and feels like she needs 1 more night. No chest pain. - Constitutional Vitals: Temp Pulse Resp BP Pulse Ox 97.9 F 64 16 115/93 90 08/12/17 10:59 08/12/17 10:59 08/12/17 10:59 08/12/17 10:59 08/12/17 10:59 General appearance: Present: cooperative, A&O X 3, morbidly obese, pleasant, no acute distress, answers questions appropriately - Head Head exam: Present: atraumatic, normocephalic - Eye Eye exam: Present: PERRL, conjuntiva pink, sclera anicteric Pupils: Present: PERRL - Neck Neck exam general surgery: Present: supple, trachea midline. Absent: lymphadenopathy - Respiratory Respiratory exam: Present: wheezes. Absent: accessory muscle use, rales, rhonchi - Cardiovascular Cardiovascular exam: Present: RRR, +S1, +S2. Absent: diastolic murmur, gallop, rubs, systolic murmur - GI/Abdominal GI/Abdominal exam: Present: normal bowel sounds, soft, no peritoneal signs. Absent: distended, tenderness - Extremities Exam Extremities exam: Present: warm, radial pulses palpable and symmetrical. Absent : calf tenderness, cyanotic, pedal edema - Neurological Exam Neurological exam: Present: CN II-XII intact, oriented X3, no focal deficits. Absent: pronater drift, facial droop, speech deficit - Skin Skin exam: Present: dry, intact Internal Medicine: Result - Labs CBC & Chem 7: 08/12/17 03:38 08/12/17 03:38 Labs: Short CBC 08/12/17 Range/Units 03:38 WBC 12.6 H (4.3-11.1) K/mcL Hgb 14.4 (11.5-15.4) g/dL Hct 46.1 H (35.3-44.9) % Plt Count 326 (140-400) K/mcL BMP 11/16/17 03:38 Sodium 137 Potassium 4.5 Chloride 97 L Carbon Dioxide 32 H BUN 17 Creatinine 0.72 Glucose 191 H Calcium 9.4 - ABG Interpretation ABG results: ABG ABG pH 7.44 pH Units (7.32-7.45) 08/09/17 06:33 ABG pCO2 46 mmHg (35-45) H 08/09/17 06:33 ABG pO2 56 mmHg (85-104) L 08/09/17 06:33 ABG O2 Saturation 90 % (95-98) L 08/09/17 06:33 PT/INR, D-dimer D-Dimer 699 ng/mLFEU (0-500) H 08/10/17 09:45 Consult Discharge Plan - Plan Referrals: Jatin Mckoy MD [Primary Care Provider] - 08/17/17 2:15 pm
[2017-08-12] MEDS: Benzonatate 100 MG CAPSULE PO PRN (16:15)
[2017-08-12] MEDS: rOPINIRole 0.25 MG TABLET PO SCH (20:52)
[2017-08-12] MEDS: predniSONE 20 MG TABLET PO SCH (20:53)
[2017-08-12] MEDS: traZODone 50 MG TABLET PO PRN (23:27)
[2017-08-13 04:00] LABS: Hematocrit 46.5 % (35.3-44.9); Hemoglobin 14.6 g/dL (11.5-15.4); Mean Corpuscular HGB Conc 31.4 g/dL (31.6-35.5); Mean Corpuscular Hemoglobin 26.2 pg (28.0-33.3); Mean Corpuscular Volume 83.3 fL (83.0-100.0); Mean Platelet Volume 9.6 fL (9.4-12.4); Platelet Count 299 K/mcL (140-400); Red Blood Count 5.58 M/mcL (3.82-4.97); Red Cell Distribution Width 15.7 % (11.5-14.5)
[2017-08-13] MEDS: Levalbuterol Neb 1.25 MG/3 ML IH SCH ×2 (04:04→10:54)
[2017-08-13 04:13] LABS: BUN/Creatinine Ratio 23 (6-26); Blood Urea Nitrogen 17 mg/dL (7-20); Calcium 9.4 mg/dL (8.6-10.8); Carbon Dioxide 32 mEq/L (19-29); Chloride 98 mEq/L (98-109); Glucose 197 mg/dL (70-99); Osmolality,Calculated 293 (280-300); Potassium 5.1 mEq/L (3.5-4.5); Sodium 138 mEq/L (136-145); eGFR For African Americans > 60 (> 60); eGFR For Non-African Americans > 60 (> 60)
[2017-08-13] MEDS: *HR* Heparin 5,000 UNIT/ML VIAL SQ SCH (05:18)
[2017-08-13] MEDS: Benzonatate 100 MG CAPSULE PO PRN (05:24)
[2017-08-13] MEDS: *HR* OxyCODONE/APAP 5/325 TABLET PO PRN (05:25)
[2017-08-13] MEDS: Metoprolol 100 MG TABLET PO SCH (08:33)
[2017-08-13] MEDS: GuaiFENesin/Dextromethorphan TABLET PO SCH (08:33)
[2017-08-13] MEDS: ARIPiprazole 5 MG TABLET PO SCH (08:33)
[2017-08-13] MEDS: Gabapentin 400 MG CAPSULE PO SCH (08:33)
[2017-08-13] MEDS: Aspirin Enteric Coated 81 MG Tablet PO SCH (08:33)
[2017-08-13] MEDS: predniSONE 20 MG TABLET PO SCH (08:34)
[2017-08-13] MEDS: Insulin LISPRO 300 UNITS/3 ML VIAL SQ SCH (08:36)
[2017-08-13] MEDS: Azithromycin 500 MG in D5% in Water 250 ML IVPB SCH (09:00)
--- NOTE | 2017-08-13 10:28 | Discharge Summary ---
Date of Encounter: 08/13/17 Time of Encounter: 10:13 - Discharge Diagnosis (1) Acute bronchitis Priority: Primary Status: Acute Comments: Evelin Johnston is a 51-year-old female with past medical history CAD, diabetes, COPD, hypertension and chronic respiratory failure presented to [facility] on 08/07/2017 with complaints of shortness of breath. She was admitted for IV ATB and steroids. She was discharged home on 08/13/2017 in stable condition with outpatient follow-up. 1. Acute bronchitis with bronchospasm: secondary to RSV; evaluated in ED with similar complaints and discharged home on steroids and doxycycline. She failed outpatient treatment with worsening shortness of breath and increased oxygen need. CXR with perihilar opacities concerning for pulmonary edema or viral etiology. Clinically did not appear overloaded, no rales or edema on exam. Resp PCR positive for RSV. Evaluated by Pulonology who recommended changing ATB to azithromycin, 2 week prednisone taper and Symbicort. Strongly encouraged smoking cessation. Follow-up with Pulmonology outpatient. 3. Acute on chronic respiratory failure: wears O2 at 2 L at at bedtime only at home. Now requiring continuous oxygen. Chest CTA negative for pulmonary embolism. Secondary to bronchitis and RSV. Continue treating underlying causes as noted above. Weaned to home dose O2 at discharge. 4. Diabetes: Per history. Cont home diabetes regimen 5. CAD: per hx. 11/2015 [facility] with non-obstructive CAD; proximal LAD 20% lesion. TTE with EF 60%. Asymptomatic. Continue home ASA, statin, BB. 6. HTN: per hx. BP controlled. Cont home BP medication. Qualifiers: Bronchitis organism: RSV Qualified Code(s): J20.5 - Acute bronchitis due to respiratory syncytial virus (2) Acute and chronic respiratory failure ([id number]) Priority: Primary Status: Acute Qualifiers: Respiratory failure complication: hypoxia Qualified Code(s): J96.21 - Acute and chronic respiratory failure with hypoxia (3) CAD (coronary artery disease) Priority: Secondary Status: Chronic Qualifiers: Coronary Disease-Associated Artery/Lesion type: [place] artery [place] vs. transplanted heart: [place] heart Associated angina: angina presence unspecified Qualified Code(s): I25.10 - Atherosclerotic heart disease of [place] coronary artery without angina pectoris (4) Depression Priority: Secondary Status: Chronic Qualifiers: Depression Type: unspecified Qualified Code(s): F32.9 - Major depressive disorder, single episode, unspecified (5) Hypertension Priority: Secondary Status: Chronic Qualifiers: Hypertension type: essential hypertension Qualified Code(s): I10 - Essential (primary) hypertension - Discharge Medications Prescriptions: Levalbuterol Neb [Xopenex Neb] 1.25 mg IH [id number] PRN #120 vial.neb PRN Reason: Shortness Of Breath/Wheezing Azithromycin [Azithromycin 6-Tab Pack] 250 mg PO PER PKG DI #6 tab Budesonide/Formoterol 160/4.5 [Symbicort 160/4.5] 1 puff IH BIDR #1 inhaler predniSONE [PredniSONE] 10 mg PO DAILY #32 tablet Home Medications: Aripiprazole [Abilify] 5 mg PO QAM 11/05/15 [History] Duloxetine HCl [Cymbalta] 60 mg PO QAM 11/05/15 [History] Lisinopril [Zestril] 10 mg PO QAM 11/05/15 [History] Metoprolol [Lopressor] 150 mg PO BID 11/05/15 [History] Pravastatin Sodium [Pravachol] 40 mg PO QPM 11/05/15 [History] Ropinirole HCl [Requip] 0.5 mg PO HS 11/05/15 [History] Aspirin [Adult Low Dose Aspirin EC] 81 mg PO DAILY 12/04/15 [History] Furosemide [Lasix] 20 mg PO DAILY PRN 07/23/16 [History] Oxygen 2 l NS HS PRN 09/28/16 [History] HYDROcodone/Acet 5/325 mg [[place] 5-325 mg] 1 tab PO Q6H PRN 02/19/17 [History] Omeprazole [PriLOSEC] 40 mg PO BID 02/19/17 [History] Potassium Chloride [K-Tab ER] 10 meq PO BID 02/19/17 [History] Trazodone HCl 100 - 200 mg PO HS PRN 02/19/17 [History] metFORMIN [Glucophage] 1,000 mg PO BID 02/19/17 [History] Gabapentin [Neurontin] 800 mg PO TID 08/08/17 [History] Azithromycin [Azithromycin 6-Tab Pack] 250 mg PO PER PKG DI #6 tab 08/13/17 [Rx] Budesonide/Formoterol 160/4.5 [Symbicort 160/4.5] 1 puff IH BIDR #1 inhaler [Rx] Levalbuterol Neb [Xopenex Neb] 1.25 mg IH [id number] PRN #120 vial.neb 08/13/17 [Rx ] predniSONE [PredniSONE] 10 mg PO DAILY #32 tablet 08/13/17 [Rx] Allergies/Adverse Reactions: 3 Allergy/AdvReac Type Severity Reaction Status Date / Time tramadol Allergy Rash Verified 08/06/17 15:42 Procedures/tests Complete & Pending: Procedures Performed prior 72 hours Category Date Time Status CTA chest [CT angio chest] [CT] Routine Cat Scan 08/10/17 14:30 Draft Date of admission: 08/10/17 09:10 Primary care physician: Jatin Mckoy MD Consults: 08/11/17 14:13 Consult to Pulmonology [CONS] Routine Consulting Provider: [facility] Reason for Consult: RSV Call Completed: Yes Discharging clinician: Guera Odell Anticipated date of discharge: 08/13/17 - Patient Status Disposition: Home, Self-Care Condition: Good Functional capacity at discharge: independent ambulation Overall status at discharge: patient is progressing back to baseline - Discharge Instructions Instructions: Respiratory Syncytial Virus (DC), Acute Bronchitis (DC), Chronic Obstructive Pulmonary Disease (DC) Follow Up With: Jatin Mckoy MD [Primary Care Provider] - 08/17/17 2:15 pm Forms: ED Satisfaction Letter - Diet and Activity Activity: increase activity as tolerated Diet: diabetic diet, low fat, low cholesterol Interval History: Seen and examined at bedside. Still with some shortness of breath and slight wheezing but overall significantly improved. Says she feels better she would like to go home today. Says her nebulizer machine is broken and she is requesting new Rx for that. No chest pain. Discussed smoking cessation at length with her. Hospital course: Ms. Johnston is a 51 year old female - Time Spent with Patient Total time spent providing and/or coordinating discharge services: - Constitutional Vitals: Temp Pulse Resp BP Pulse Ox 98.0 F 64 16 116/77 91 08/13/17 07:27 08/13/17 07:27 08/13/17 07:27 08/13/17 07:27 08/13/17 08:50 General appearance: Present: cooperative, A&O X 3, morbidly obese, pleasant, no acute distress, answers questions appropriately - Head Head exam: Present: atraumatic, normocephalic - Eye Eye exam: Present: PERRL, conjuntiva pink, sclera anicteric Pupils: Present: PERRL - Neck Neck exam general surgery: Present: supple, trachea midline. Absent: lymphadenopathy - Respiratory Respiratory exam: Present: wheezes. Absent: accessory muscle use, rales, rhonchi - Cardiovascular Cardiovascular exam: Present: RRR, +S1, +S2. Absent: diastolic murmur, gallop, rubs, systolic murmur - GI/Abdominal GI/Abdominal exam: Present: normal bowel sounds, soft, no peritoneal signs. Absent: distended, tenderness - Extremities Exam Extremities exam: Present: warm, radial pulses palpable and symmetrical. Absent : calf tenderness, cyanotic, pedal edema - Neurological Exam Neurological exam: Present: CN II-XII intact, oriented X3, no focal deficits. Absent: pronater drift, facial droop, speech deficit - Skin Skin exam: Present: dry, intact
[2017-08-13] MEDS: Budesonide/Formoterol 160/4.5 MDI IH SCH (10:54)
[2017-08-13 11:44] VITALS: BP 115/68
== END 2017-08-13 13:08 | disposition home or self-care (01) | DRG 190 ==
LOC: EMEROO 18:38 → 3BNU 18:38
PROVIDERS: ADMIT Hospitalist; ATTEND Registered Nurse

== ENCOUNTER 2019-03-20 09:10 | Observation (INO) ==
--- NOTE | 2019-03-20 09:42 | Emergency Department Note ---
Disposition Clinical Impression: Acute exacerbation of chronic obstructive airways disease Community acquired pneumonia Qualifiers: Laterality: unspecified laterality Qualified Code(s): J18.9 - Pneumonia, unspecified organism Disposition: Admitted As Inpatient Condition: Good Time of Disposition: 10:55 General Adult HPI - General Chief complaint: ED Shortness of Breath/Dyspnea Stated complaint: TEZ x3 days,cough Time Seen by Provider: 03/20/19 09:15 Source: patient, family Limitations: no limitations Nursing Notes Reviewed: Yes Vital Signs Reviewed: Yes - History of Present Illness HPI Narrative: Female patient presenting complaints department complaining of shortness of breath for 3 days. Does have a history of COPD. Is on oxygen 2 L at night only. Has been requiring oxygen during the day the [place] saturation above 92 %. She does report a productive cough that began this morning. No recent hospitalizations for COPD. Does have a history of back surgery as well. Patient denies any nausea or vomiting. Does also complain of an ache to the left side of her chest. Denies any history of DVT or PE. Pain Scale: 10 - Related Data Home Medications Medication Instructions Recorded Confirmed Duloxetine HCl [Cymbalta] 60 mg PO QAM 11/05/15 03/20/19 Lisinopril [Zestril] 10 mg PO QAM 11/05/15 03/20/19 Metoprolol [Lopressor] 150 mg PO BID 11/05/15 03/20/19 Pravastatin Sodium [Pravachol] 40 mg PO QPM 11/05/15 03/20/19 Ropinirole HCl [Requip] 0.5 mg PO HS 11/05/15 03/20/19 Furosemide [Lasix] 20 mg PO DAILY PRN 07/23/16 03/20/19 Oxygen 2 l NS HS PRN 09/28/16 03/20/19 Potassium Chloride [K-Tab ER] 10 meq PO QAM 02/19/17 03/20/19 metFORMIN [Glucophage] 1,000 mg PO BID 02/19/17 03/20/19 Gabapentin [Neurontin] 800 mg PO TID 08/08/17 03/20/19 Aspirin [Lo-Dose Aspirin EC] 81 mg PO DAILY 04/13/18 03/20/19 Ferrous Sulfate [Iron] 325 mg PO DAILY 04/13/18 03/20/19 [place]-3/Dha/Epa/Fish Oil [Fish Oil 1 cap PO DAILY 04/13/18 03/20/19 1,000 mg Softgel] OxyCODONE/APAP 7.5/325 [Percocet 1 each PO Q8HR PRN 04/13/18 03/20/19 7.5/325 MG] Trazodone HCl 300 mg PO HS 04/13/18 03/20/19 DULoxetine [Cymbalta] 30 mg PO QAM 03/20/19 03/20/19 Diclofenac Sodium [Voltaren] 50 mg PO Q8HR 03/20/19 03/20/19 Omeprazole [PriLOSEC] 40 mg PO BID 03/20/19 03/20/19 Ranitidine HCl [Acid Last Remodeler Repairer] 150 mg PO DAILY PRN 03/20/19 03/20/19 Tizanidine HCl 4 mg PO BID PRN 03/20/19 03/20/19 Allergies Allergy/AdvReac Type Severity Reaction Status Date / Time tramadol Allergy Rash Verified 03/20/19 09:23 All systems ED: reviewed and negative except as stated. Review of Systems: As Per HPI Constitutional: Denies: fever, chills Cardiovascular: Reports: chest pain (Pressure to the left side). Denies: p alpitations Respiratory: Reports: cough (Productive.), dyspnea, hemoptysis (Mildly only this a.m.) Gastrointestinal: Reports: diarrhea (Always has loose stool. Mild increase from baseline). Denies: abdominal pain, nausea, vomiting Genitourinary: Denies: urgency, dysuria, frequency, hematuria Musculoskeletal: Reports: back pain (Chronic) Neurological: Reports: weakness Past Medical History - Past Medical History Attestation: Yes The following information was validated with the patient. Source: patient Medical history: Reports: COPD, diabetes, hyperlipidemia, hypertension Surgical history: Reports: cholecystectomy, hysterectomy Psychiatric history: Reports: anxiety, depression - Social History Smoking Status: Current every day smoker Smokeless Tobacco Status: No Alcohol use: Reports: none Drug use: Reports: none Physical Exam - General Limitations: no limitations General appearance: alert, in no apparent distress - Head Head exam: atraumatic, normocephalic, normal inspection - Eye Eye exam: Present: normal appearance, PERRL, EOMI - ENT ENT exam: normal exam, normal oropharynx, mucous membranes moist - Neck Neck exam: Present: normal inspection, full ROM, trachea midline. Absent: tenderness - Chest Chest inspection: Present: normal inspection, symmetric chest wall rise. Absent: tenderness - Respiratory Respiratory exam: Present: wheezes (Worse on the left.), other (Patient requiring 2 L of oxygen to keep oxygen saturation above 92%.). Absent: a ccessory muscle use - Cardiovascular Cardiovascular exam: Present: regular rate, normal rhythm, normal heart sounds - Abdominal Exam Abdominal exam: Present: soft, Non-Tender. Absent: tenderness, distention, guarding, rebound, rigidity, organomegaly - Extremities Exam Extremities exam: Present: normal inspection, full ROM. Absent: tenderness, pedal edema, calf tenderness - Neurological Exam Neurological exam: Present: alert, oriented X3 - Psychiatric Psychiatric exam: Present: normal affect, normal mood - Skin Skin exam: Present: warm, dry, intact, normal color. Absent: rash, cyanosis, diaphoresis Course Course Narrative: Patient with extra 20 wheezing worse on the left. Also some mild rhonchi in the left upper lobe. Appears to be a COPD exacerbation currently. We will get a chest x-ray to rule out pneumonia start patient on a triple DuoNeb as well as steroids. I anticipate admission for hypoxia she is requiring increased oxygen from her baseline. - Reevaluation(s) Reevaluation #1: Patient with bilateral lower lobe and hilar infiltrates. We will place patient on levofloxacin at this time. We will admit to the hospital for COPD exacerbation, pneumonia as well as hypoxia. Time: 10:40 - Consultations Consultation #1: Dr Wallace accepted Pt in stable condition Time: 11:11 Vital Signs Temperature 98 F 03/20/19 09:23 Pulse Rate 69 03/20/19 09:23 Respiratory Rate 22 03/20/19 09:23 Blood Pressure 107/74 03/20/19 09:23 O2 Sat by Pulse Oximetry 95 03/20/19 09:23 Temperature 98 F 03/20/19 09:23 Pulse Rate 69 03/20/19 09:23 Respiratory Rate 22 03/20/19 09:23 Blood Pressure 107/74 03/20/19 09:23 O2 Sat by Pulse Oximetry 96 03/20/19 09:47 Oxygen Delivery Oxygen Delivery Nasal Cannula Medical Decision Making - Medical Records Medical records reviewed: Yes I reviewed the patient's medical records. - Lab Data Lab results reviewed: Yes I reviewed the patient's lab results. Result diagrams: 03/20/19 09:41 03/20/19 09:41 Lab Results 03/20/19 03/20/19 03/20/19 Range/Units 09:41 09:41 09:41 WBC 8.2 (4.3-11.1) K/mcL RBC 4.40 (3.82-4.97) M/mcL Hgb 13.0 (11.5-15.4) g/dL Hct 39.5 (35.3-44.9) % MCV 89.8 (83.0-100.0) fL MCH 29.5 (28.0-33.3) pg MCHC 32.9 (31.6-35.5) g/dL RDW 14.4 (11.5-14.5) % Plt Count 212 (140-400) K/mcL MPV 9.5 (9.4-12.4) fL Immature Gran % 0.2 (0-4) % Seg Neutrophils % 76.6 % Lymphocytes % 14.8 % Monocytes % 4.2 % Eosinophils % 4.0 % Basophils % 0.2 % Neutrophils # 6.2 (1.6-8.9) K/mcL Lymphocytes # 1.2 (0.6-4.6) K/mcL Monocytes # 0.3 (0.0-1.3) K/mcL Eosinophils # 0.3 (0.0-0.6) K/mcL Basophils # 0.0 (0.0-0.2) K/mcL Sodium 141 (136-145) mEq/L Potassium 4.5 (3.5-5.1) mEq/L Chloride 105 (98-107) mEq/L Carbon Dioxide 27 (23-29) mEq/L BUN 17 (6-20) mg/dL Creatinine 0.67 (0.60-1.20) mg/dL Est GFR ( Amer) > 60 (> 60) Est GFR (Non-Af Amer) > 60 (> 60) BUN/Creatinine Ratio 25 (6-26) Glucose 88 (70-105) mg/dL Calculated Osmolality 293 (280-300) Lactic Acid 0.8 (0.5-2.2) mmol/L Calcium 9.3 (8.6-10.3) mg/dL Troponin I < 0.03 (< 0.04) ng/mL B-Natriuretic Peptide (Less than 100) pg/mL 03/20/19 Range/Units 09:41 WBC (4.3-11.1) K/mcL RBC (3.82-4.97) M/mcL Hgb (11.5-15.4) g/dL Hct (35.3-44.9) % MCV (83.0-100.0) fL MCH (28.0-33.3) pg MCHC (31.6-35.5) g/dL RDW (11.5-14.5) % Plt Count (140-400) K/mcL MPV (9.4-12.4) fL Immature Gran % (0-4) % Seg Neutrophils % % Lymphocytes % % Monocytes % % Eosinophils % % Basophils % % Neutrophils # (1.6-8.9) K/mcL Lymphocytes # (0.6-4.6) K/mcL Monocytes # (0.0-1.3) K/mcL Eosinophils # (0.0-0.6) K/mcL Basophils # (0.0-0.2) K/mcL Sodium (136-145) mEq/L Potassium (3.5-5.1) mEq/L Chloride (98-107) mEq/L Carbon Dioxide (23-29) mEq/L BUN (6-20) mg/dL Creatinine (0.60-1.20) mg/dL Est GFR ( Amer) (> 60) Est GFR (Non-Af Amer) (> 60) BUN/Creatinine Ratio (6-26) Glucose (70-105) mg/dL Calculated Osmolality (280-300) Lactic Acid (0.5-2.2) mmol/L Calcium (8.6-10.3) mg/dL Troponin I (< 0.04) ng/mL B-Natriuretic Peptide 45 (Less than 100) pg/mL - Radiology Data Radiology results reviewed: Yes I reviewed the patient's radiology results. Chest X-Ray 03/20/19 09:15 IMPRESSION: Diffuse airspace disease predominant perihilar and bibasilar regions of both lungs suggesting pneumonia, possibly atypical. Recommend follow-up to resolution. D/ / Leandro Weems MD / Leandro Weems MD Interpreting Provider: Leandro Weems MD - EKG Data EKG #1 EKG attestation: Yes I reviewed and interpreted this EKG. EKG results narrative: Normal sinus rhythm at a rate of 67. AR interval is 165. Your's duration is 86. QT is 379. QTC is 394. No signs of acute ischemia. Good R-wave progression. No signs of did repeatedly or [place]. No previous EKG to compare to. Attestation Statement - Attestation Attestation: I, Luiz Souza, examined this patient and my medical decision-making was reviewed with the SHIPPING AND RECEIVING ASSOCIATE/PA/Advanced Practice Nurse/Resident Physician. I agree with the documented findings, disposition and treatment plan as described except to the extent set forth below. 53-year-old female presents emergency Department with concerns of increasing shortness of breath. Patient has a cough that is productive of yellow sputum. Patient reports symptoms have been worsening over the past 3 days. She has a history of COPD. She has wheezing in the bilateral posterior lung gonzales. DuoNeb to the emergency department to give some improvement of her symptoms. She has increased oxygen requirement at home. Patient has possible infiltrate noted on chest x-ray.I reviewed the EKG with the resident and agree with the interpretation.. Patient will be admitted to the hospitalist for further care and evaluation. Antibiotics were started in the emergency department.
[2019-03-20 10:03] LABS: Basophils % 0.2 %; Eosinophils # 0.3 K/mcL (0.0-0.6); Hematocrit 39.5 % (35.3-44.9); Immature Granulocytes % 0.2 % (0-4); Lymphocytes # 1.2 K/mcL (0.6-4.6); Lymphocytes % 14.8 %; Mean Corpuscular HGB Conc 32.9 g/dL (31.6-35.5); Mean Corpuscular Hemoglobin 29.5 pg (28.0-33.3); Mean Corpuscular Volume 89.8 fL (83.0-100.0); Mean Platelet Volume 9.5 fL (9.4-12.4); Monocytes # 0.3 K/mcL (0.0-1.3); Monocytes % 4.2 %; Neutrophils # 6.2 K/mcL (1.6-8.9); Platelet Count 212 K/mcL (140-400); Red Cell Distribution Width 14.4 % (11.5-14.5); Segmented Neutrophils % 76.6 %; White Blood Count 8.2 K/mcL (4.3-11.1)
[2019-03-20 10:17] LABS: BUN/Creatinine Ratio 25 (6-26); Blood Urea Nitrogen 17 mg/dL (6-20); Calcium 9.3 mg/dL (8.6-10.3); Carbon Dioxide 27 mEq/L (23-29); Chloride 105 mEq/L (98-107); Glucose 88 mg/dL (70-105); Osmolality,Calculated 293 (280-300); Potassium 4.5 mEq/L (3.5-5.1); Sodium 141 mEq/L (136-145); Troponin I < 0.03 ng/mL (< 0.04); eGFR For African Americans > 60 (> 60); eGFR For Non-African Americans > 60 (> 60)
[2019-03-20] MEDS ORDERED: levoFLOXacin 750 MG/150 ML 750 MG/150 ML BAG IVPB STA (10:39)
[2019-03-20] MEDS ORDERED: methylPREDNISolone 125 MG/2 ML VIAL IVP ONE (11:23)
--- NOTE | 2019-03-20 11:34 | Internal Med History&Physical ---
Date of Encounter: 03/20/19 Time of Encounter: 11:34 Internal Medicine - H&P: HPI History of present illness: Ms. Johnston is a 53 year old female with past medical history of COPD and smoking history over 25 years who presented to the ER with progressive worsening of shortness of breath associated with persistent productive cough of yellowish sputum. The patient has history of COPD and she is on home oxygen however she has been experiencing increasing of oxygen requirement. The patient was evaluated by the ER staff and clinical presentation was evident for COPD exacerbation. The patient denies chest pain, palpitation, orthopnea, nocturnal dyspnea or progressive forcing of lower extremity edema. She denies history of DVT, PE or recent travel, admitted for further evaluation and management of COPD exacerbation. Past Med Surg Social Fam HX - Past Medical History Medical history: COPD, diabetes, hyperlipidemia, hypertension Additional medical history: wears 1L o2 at night, sleep apnea-unable to wear cpap Psychiatric history: anxiety, depression - Past Surgical History Surgical History: cholecystectomy, hysterectomy Additional surgical history: exploratory surgery, back surgery, left heart cath, hemorrhoidectomy - Social History Smoking Status: Current every day smoker Smokeless Tobacco Status: No Alcohol use: none Drug use: none - Family History Father Family Member Ethnicity: Non- Living Status: Hx Family GI Disorders: Yes (cirrhosis) Mother Family Member Ethnicity: Non- Living Status: Still Living Hx Family Cardiac Disorders: Yes (HTN, Afib) Brother Family Member Ethnicity: Non- Living Status: Still Living Hx Family Respiratory Disorders: Yes (COPD) Hx Family Endocrine Disorder: Yes (DM) Internal Medicine - H&P: Meds Duloxetine HCl [Cymbalta] 60 mg PO QAM 11/05/15 [History] Lisinopril [Zestril] 10 mg PO QAM 11/05/15 [History] Metoprolol [Lopressor] 150 mg PO BID 11/05/15 [History] Pravastatin Sodium [Pravachol] 40 mg PO QPM 11/05/15 [History] Ropinirole HCl [Requip] 0.5 mg PO HS 11/05/15 [History] Furosemide [Lasix] 20 mg PO DAILY PRN 07/23/16 [History] Oxygen 2 l NS HS PRN 09/28/16 [History] Potassium Chloride [K-Tab ER] 10 meq PO QAM 02/19/17 [History] metFORMIN [Glucophage] 1,000 mg PO BID 02/19/17 [History] Gabapentin [Neurontin] 800 mg PO TID 08/08/17 [History] Aspirin [Lo-Dose Aspirin EC] 81 mg PO DAILY 04/13/18 [History] Ferrous Sulfate [Iron] 325 mg PO DAILY 04/13/18 [History] [place]-3/Dha/Epa/Fish Oil [Fish Oil 1,000 mg Softgel] 1 cap PO DAILY 04/13/18 [History] OxyCODONE/APAP 7.5/325 [Percocet 7.5/325 MG] 1 each PO Q8HR PRN 04/13/18 [History] Trazodone HCl 300 mg PO HS 04/13/18 [History] DULoxetine [Cymbalta] 30 mg PO QAM 03/20/19 [History] Diclofenac Sodium [Voltaren] 50 mg PO Q8HR 03/20/19 [History] Omeprazole [PriLOSEC] 40 mg PO BID 03/20/19 [History] Ranitidine HCl [Acid Central Office Operator Supervisor] 150 mg PO DAILY PRN 03/20/19 [History] Tizanidine HCl 4 mg PO BID PRN 03/20/19 [History] Allergy/AdvReac Type Severity Reaction Status Date / Time tramadol Allergy Rash Verified 03/20/19 09:23 All Systems PM: A 10-system review of systems was performed and is negative for pertinent findings except as documented above in the HPI. - Constitutional Vitals: Temp Pulse Resp BP Pulse Ox 98 F 69 22 107/74 96 03/20/19 09:23 03/20/19 09:23 03/20/19 09:23 03/20/19 09:23 03/20/19 09:47 General appearance: Present: A&O X 3 - Head Head exam: Present: atraumatic, normocephalic - Neck Neck exam general surgery: Present: supple, trachea midline. Absent: lymph adenopathy - Respiratory Respiratory exam: Present: rhonchi, wheezes. Absent: accessory muscle use, rales - Cardiovascular Cardiovascular exam: Present: RRR, +S1, +S2. Absent: diastolic murmur, gallop, rubs, systolic murmur - GI/Abdominal GI/Abdominal exam: Present: normal bowel sounds, soft, no peritoneal signs. Absent: distended, tenderness - Extremities Exam Extremities exam: Present: warm, radial pulses palpable and symmetrical. Abs ent: calf tenderness, cyanotic, pedal edema Internal Med - H&P Results - Labs CBC & Chem 7: 03/20/19 09:41 03/20/19 09:41 Labs: Short CBC 03/20/19 Range/Units 09:41 WBC 8.2 (4.3-11.1) K/mcL Hgb 13.0 (11.5-15.4) g/dL Hct 39.5 (35.3-44.9) % Plt Count 212 (140-400) K/mcL Neutrophils # 6.2 (1.6-8.9) K/mcL BMP 03/20/19 09:41 Sodium 141 Potassium 4.5 Chloride 105 Carbon Dioxide 27 BUN 17 Creatinine 0.67 Glucose 88 Calcium 9.3 Cardiac Enzymes 03/20/19 Range/Units 09:41 Troponin I < 0.03 (< 0.04) ng/mL - Impressions ITS Impressions Chest X-Ray 03/20/19 09:15 IMPRESSION: Diffuse airspace disease predominant perihilar and bibasilar regions of both lungs suggesting pneumonia, possibly atypical. Recommend follow-up to resolution. D/ / Leandro Weems MD / Leandro Weems MD Interpreting Provider: Leandro Weems MD - Assessment and Plan (1) Acute exacerbation of chronic obstructive airways disease Current Visit: Yes Status: Acute Assessment and plan: SOB due to COPD exacerbation caused by URTI. Diffuse airspace disease predominant perihilar and bibasilar regions of both lungs suggesting pneumonia, possibly atypical. PLAN: - Aerosols q 4 hr and PRN SOB - Solu-medrol 40 mg IV q 6 hr - O2 to keep SpO2 higher than 92% (SpO higher than 95% if CAD) - CBCD, BMP in AM - Sputum Gram stain, C+S - Tylenol 650 mg PO q 4-6 hr PRN pain/fever - ABs (2) CAD (coronary artery disease) Current Visit: No Status: Chronic Assessment and plan: The patient chest pain-free, no evidence of EKG changes, troponin first set was within normal limits. We will continue home meds, Qualifiers: Coronary Disease-Associated Artery/Lesion type: [place] artery [place] vs. transplanted heart: [place] heart Associated angina: angina presence unspecified Qualified Code(s): I25.10 - Atherosclerotic heart disease of [place] coronary artery without angina pectoris (3) Hypertension Current Visit: No Status: Chronic Assessment and plan: We will cont. antihypertensive, monitor blood pressure while inpatient and adjust regimen if indicated. Qualifiers: Hypertension type: essential hypertension Qualified Code(s): I10 - Essential (primary) hypertension (4) Morbid obesity Current Visit: No Status: Chronic (5) Hyperlipidemia Current Visit: No Status: Chronic Assessment and plan: We will continue home statin and check fasting lipid profile in a.m. Qualifiers: Hyperlipidemia type: unspecified Qualified Code(s): E78.5 - Hyperlipidemia, unspecified (6) Depression Current Visit: No Status: Chronic Assessment and plan: We will continue home medication Qualifiers: Depression Type: unspecified Qualified Code(s): F32.9 - Major depressive di sorder, single episode, unspecified (7) Diabetes mellitus Current Visit: Yes Status: Acute Assessment and plan: We will start the patient on insulin sliding scale with coverage. - Time Spent With Patient Total time spent is greater than 50% in coordination of care (as documented) at patient's floor/unit and/or counseling patient:
[2019-03-20] MEDS ORDERED: Ondansetron 4 MG/2 ML VIAL IVP PRN (13:21)
[2019-03-20] MEDS ORDERED: Naloxone 0.4 MG/ML INJ IVP PRN (13:21)
--- NOTE | 2019-03-20 14:30 | Electrocardiograph Report ---
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
[2019-03-20] MEDS ORDERED: tiZANidine 4 MG TABLET PO PRN (16:03)
[2019-03-20] MEDS ORDERED: Famotidine 20 MG TABLET PO PRN (16:03)
[2019-03-20] MEDS: Ipratropium/Albuterol Neb 3 ML IH SCH ×2 (16:18→23:27)
[2019-03-20] MEDS: 0.9 % Sodium Chloride 1,000 ML IVC SCH (16:47)
[2019-03-20] MEDS: *HR* OxyCODONE/APAP 7.5/325 TABLET PO PRN (16:47)
[2019-03-20] MEDS: MethylPREDNISolone 40 MG/ML VIAL IVP SCH (17:50)
[2019-03-20] MEDS: rOPINIRole 0.25 MG TABLET PO SCH (20:46)
[2019-03-20] MEDS: Insulin LISPRO 300 UNITS/3 ML VIAL SQ SCH (20:46)
[2019-03-20] MEDS: Gabapentin 400 MG CAPSULE PO SCH (20:46)
[2019-03-20] MEDS: traZODone 50 MG TABLET PO SCH (20:46)
[2019-03-20] MEDS: Metoprolol 100 MG TABLET PO SCH (20:51)
[2019-03-21] MEDS: MethylPREDNISolone 40 MG/ML VIAL IVP SCH ×3 (00:47→17:33)
[2019-03-21] MEDS: *HR* OxyCODONE/APAP 7.5/325 TABLET PO PRN ×3 (00:47→17:33)
[2019-03-21] MEDS: 0.9 % Sodium Chloride 1,000 ML IVC SCH (00:47)
[2019-03-21] MEDS: Ipratropium/Albuterol Neb 3 ML IH SCH ×6 (04:12→23:26)
[2019-03-21 06:50] LABS: Basophils % 0.2 %; Hematocrit 39.1 % (35.3-44.9); Hemoglobin 12.9 g/dL (11.5-15.4); Immature Granulocytes % 0.6 % (0-4); Lymphocytes # 0.8 K/mcL (0.6-4.6); Lymphocytes % 12.1 %; Mean Corpuscular Hemoglobin 28.9 pg (28.0-33.3); Mean Corpuscular Volume 87.5 fL (83.0-100.0); Mean Platelet Volume 9.5 fL (9.4-12.4); Monocytes # 0.2 K/mcL (0.0-1.3); Monocytes % 3.4 %; Neutrophils # 5.4 K/mcL (1.6-8.9); Platelet Count 218 K/mcL (140-400); Red Blood Count 4.47 M/mcL (3.82-4.97); Segmented Neutrophils % 83.7 %; White Blood Count 6.5 K/mcL (4.3-11.1)
[2019-03-21 06:58] LABS: Prothrombin Time 11.5 Seconds (9.4-12.1)
[2019-03-21 07:00] LABS: Activated Partial Thrombo Time 31.6 Seconds (26.0-36.0)
[2019-03-21 07:10] LABS: Alanine Aminotransferase 12 Units/L (7-52); Albumin 3.8 g/dL (3.5-5.7); Albumin/Globulin Ratio 1.4 (1.1-2.2); Alkaline Phosphatase 62 Units/L (34-104); Aspartate Amino Transferase 10 Units/L (13-39); BUN/Creatinine Ratio 22 (6-26); Bilirubin,Total 0.7 mg/dL (0.3-1.0); Blood Urea Nitrogen 10 mg/dL (6-20); Calcium 9.2 mg/dL (8.6-10.3); Carbon Dioxide 27 mEq/L (23-29); Chloride 103 mEq/L (98-107); Chol/HDL Ratio 4.9 (0-4.9); Cholesterol 146 mg/dL (< 200); Globulin 2.7 g/dL (2.4-3.5); Glucose 194 mg/dL (70-105); HDL Cholesterol 30 mg/dL (40-59); LDL Cholesterol,Calculated 79 mg/dL (0-99); Magnesium 1.2 mg/dL (1.6-2.6); Osmolality,Calculated 294 (280-300); Phosphorous 3.3 mg/dL (2.7-4.5); Potassium 4.2 mEq/L (3.5-5.1); Sodium 140 mEq/L (136-145); Total Protein 6.5 g/dL (6.4-8.9); Triglycerides 186 mg/dL (< 150); eGFR For African Americans > 60 (> 60); eGFR For Non-African Americans > 60 (> 60)
[2019-03-21 07:13] LABS: Estimated Average Glucose 128 mg/dl
[2019-03-21] MEDS ORDERED: Furosemide 20 MG TABLET PO PRN (07:28)
[2019-03-21] MEDS: Insulin LISPRO 300 UNITS/3 ML VIAL SQ SCH ×4 (08:15→21:32)
[2019-03-21] MEDS: levoFLOXacin 750 MG/150 ML 750 MG/150 ML BAG IVPB SCH (08:15)
[2019-03-21] MEDS: Gabapentin 400 MG CAPSULE PO SCH ×3 (08:16→21:33)
[2019-03-21] MEDS: Aspirin Enteric Coated 81 MG Tablet PO SCH (08:16)
[2019-03-21] MEDS: Metoprolol 100 MG TABLET PO SCH ×2 (08:21→21:34)
[2019-03-21] MEDS ORDERED: NON-FORMULARY MEDICATION 1 EACH EACH (Duloxetine Hcl [Cymbalta] 60 MG) PO SCH (09:00)
[2019-03-21] MEDS ORDERED: levoFLOXacin 500 MG/100 ML 500 MG/100 ML BAG IVPB SCH (09:00)
--- NOTE | 2019-03-21 10:43 | Internal Med Progress Note ---
Hospitalist Progress Note - Encounter Date of Encounter: 03/21/19 Time of Encounter: 09:15 - Subjective Interval History: Reports slight improvement in breathing but continues to have severe dyspnea on minimal exertion and persistent cough. Having yellowish sputum production as well. No fever overnight - Exam Vitals: Temp Pulse Resp BP Pulse Ox 98.1 F 69 18 132/76 94 03/21/19 08:20 03/21/19 08:20 03/21/19 08:20 03/21/19 08:20 03/21/19 08:20 Exam: General: Alert and oriented, mild distress. Cardiovascular:Normal S1 & S2, No JVD. Pulse regular. Lungs: bilateral rhonchi/wheezes more prominent at the bases Abdomen:Soft, non-tender, no rigidity. Extremities:No deformity or swelling Neurological:Normal cognition and motor skills. Non-focal - Assessment and Plan (1) Acute and chronic respiratory failure ([id number]) Current Visit: Yes Status: Acute Assessment and Plan: on 2L at baseline, currently at 4L secondary to pneumonia complicated by COPD exacerbation levaquin, steroid, bronchodilators wean O2 as tolerated (2) Community acquired pneumonia Current Visit: Yes Status: Acute Assessment and Plan: As above for respiratory failure, on IV Levaquin Strep/Legionella antigens negative (3) Acute exacerbation of chronic obstructive airways disease Current Visit: Yes Status: Acute Assessment and Plan: On steroid and bronchodilators. advised on smoking cessation (4) CAD (coronary artery disease) Current Visit: No Status: Chronic Assessment and Plan: resume home meds (5) Hypertension Current Visit: No Status: Chronic Assessment and Plan: resume home meds (6) Depression Current Visit: No Status: Chronic Assessment and Plan: resume home meds (7) Morbid obesity Current Visit: No Status: Chronic Assessment and Plan: BMI 36.8 lifestyle modifications emphasized (8) Hyperlipidemia Current Visit: No Status: Chronic Assessment and Plan: resume home meds (9) Diabetes mellitus Current Visit: Yes Status: Chronic Assessment and Plan: Metformin on hold, A1c 6.1 low dose sliding scale coverage DVT Prophylaxis: EPCD - Time Spent with Patient Total time spent is greater than 50% in coordination of care (as documented) at patient's floor/unit and/or counseling patient: 25 - 35 minutes Plan of Care Discussed with: patient Internal Medicine: Result - Labs CBC & Chem 7: 03/21/19 06:33 03/21/19 06:33 Labs: Short CBC 03/21/19 Range/Units 06:33 WBC 6.5 (4.3-11.1) K/mcL Hgb 12.9 (11.5-15.4) g/dL Hct 39.1 (35.3-44.9) % Plt Count 218 (140-400) K/mcL Neutrophils # 5.4 (1.6-8.9) K/mcL BMP 03/21/19 06:33 Sodium 140 Potassium 4.2 Chloride 103 Carbon Dioxide 27 BUN 10 Creatinine 0.46 L Glucose 194 H Calcium 9.2 Liver Function 03/21/19 Range/Units 06:33 Total Bilirubin 0.7 (0.3-1.0) mg/dL AST 10 L (13-39) Units/L ALT 12 (7-52) Units/L Alkaline Phosphatase 62 (34-104) Units/L Albumin 3.8 (3.5-5.7) g/dL - ABG Interpretation ABG results: PT/INR, D-dimer PT 11.5 Seconds (9.4-12.1) 03/21/19 06:33 Consult Discharge Plan - Plan Referrals: Jatin Mckoy MD [Primary Care Provider] - (1) Acute and chronic respiratory failure ([id number]) Qualifiers: Respiratory failure complication: hypoxia Qualified Code(s): J96.21 - Acute and chronic respiratory failure with hypoxia (2) Community acquired pneumonia Qualifiers: Laterality: unspecified laterality Qualified Code(s): J18.9 - Pneumonia, unspecified organism (4) CAD (coronary artery disease) Qualifiers: Coronary Disease-Associated Artery/Lesion type: [place] artery [place] vs. transplanted heart: [place] heart Associated angina: angina presence unspecified Qualified Code(s): I25.10 - Atherosclerotic heart disease of [place] coronary artery without angina pectoris (5) Hypertension Qualifiers: Hypertension type: essential hypertension Qualified Code(s): I10 - Essential (primary) hypertension (6) Depression Qualifiers: Depression Type: unspecified Qualified Code(s): F32.9 - Major depressive dis order, single episode, unspecified (8) Hyperlipidemia Qualifiers: Hyperlipidemia type: unspecified Qualified Code(s): E78.5 - Hyperlipidemia, u nspecified (9) Diabetes mellitus Qualifiers: Diabetes mellitus type: type 2 Diabetes mellitus senior living insulin use: without tank terminal gauger use Diabetes mellitus complication status: without complication Qualified Code(s): E11.9 - Type 2 diabetes mellitus without complications
[2019-03-21] MEDS: Acetaminophen 325 MG TABLET PO PRN (21:32)
[2019-03-21] MEDS: rOPINIRole 0.25 MG TABLET PO SCH (21:33)
[2019-03-21] MEDS: traZODone 50 MG TABLET PO SCH (21:34)
[2019-03-22] MEDS: *HR* OxyCODONE/APAP 7.5/325 TABLET PO PRN ×2 (01:34→10:43)
[2019-03-22] MEDS: Ipratropium/Albuterol Neb 3 ML IH SCH ×3 (03:49→11:00)
[2019-03-22] MEDS: Acetaminophen 325 MG TABLET PO PRN (04:54)
[2019-03-22 05:30] LABS: Basophils % 0.1 %; Hematocrit 37.5 % (35.3-44.9); Hemoglobin 12.4 g/dL (11.5-15.4); Immature Granulocytes % 0.7 % (0-4); Lymphocytes # 1.8 K/mcL (0.6-4.6); Lymphocytes % 19.2 %; Mean Corpuscular HGB Conc 33.1 g/dL (31.6-35.5); Mean Corpuscular Hemoglobin 29.7 pg (28.0-33.3); Mean Corpuscular Volume 89.7 fL (83.0-100.0); Mean Platelet Volume 9.7 fL (9.4-12.4); Monocytes # 0.6 K/mcL (0.0-1.3); Monocytes % 6.5 %; Neutrophils # 6.7 K/mcL (1.6-8.9); Platelet Count 233 K/mcL (140-400); Red Blood Count 4.18 M/mcL (3.82-4.97); Red Cell Distribution Width 14.4 % (11.5-14.5); Segmented Neutrophils % 73.5 %; White Blood Count 9.1 K/mcL (4.3-11.1)
[2019-03-22 05:50] LABS: BUN/Creatinine Ratio 28 (6-26); Blood Urea Nitrogen 16 mg/dL (6-20); Calcium 9.3 mg/dL (8.6-10.3); Carbon Dioxide 28 mEq/L (23-29); Chloride 103 mEq/L (98-107); Glucose 138 mg/dL (70-105); Magnesium 1.5 mg/dL (1.6-2.6); Osmolality,Calculated 295 (280-300); Potassium 4.5 mEq/L (3.5-5.1); Sodium 141 mEq/L (136-145); eGFR For African Americans > 60 (> 60); eGFR For Non-African Americans > 60 (> 60)
[2019-03-22] MEDS: MethylPREDNISolone 40 MG/ML VIAL IVP SCH (06:22)
[2019-03-22] MEDS: Aspirin Enteric Coated 81 MG Tablet PO SCH (08:48)
[2019-03-22] MEDS: Metoprolol 100 MG TABLET PO SCH (08:48)
[2019-03-22] MEDS: Insulin LISPRO 300 UNITS/3 ML VIAL SQ SCH ×2 (08:49→12:08)
[2019-03-22] MEDS: Gabapentin 400 MG CAPSULE PO SCH (08:49)
[2019-03-22] MEDS: levoFLOXacin 750 MG/150 ML 750 MG/150 ML BAG IVPB SCH (08:49)
--- NOTE | 2019-03-22 12:33 | Discharge Summary ---
- NOTES TO OUTPATIENT PROVIDER Notes to Outpatient Provider: PCP. Quality Compliance Coordinator out pt in 2- 4 weeks or possible PFT with DLCO when currnet symptoms completely resolve Orders not resulted at time of discharge: Pending orders 03/20/19 10:45 Culture,Blood [BC] Stat Date of Encounter: 03/22/19 Time of Encounter: 12:31 - Discharge Diagnosis (1) Acute and chronic respiratory failure ([id number]) Priority: Primary Status: Acute Assessment and Plan: on 2L at baseline, currently at 4L during this admission secondary to pneumonia complicated by COPD exacerbation Was placed on levaquin, steroid, bronchodilators attempt to wean off O2 was not tolerated. Pt sats was 91% at rest on RA and dropped to 88% with activity on RA. Pt immediately corrected with 3L oxygen nasal cannula She is being discharge home on 3L [place] of oxygen. She is to follow up out pt with PCP and pulmonology for possible out pt PFT Qualifiers: Respiratory failure complication: hypoxia Qualified Code(s): J96.21 - Acute and chronic respiratory failure with hypoxia (2) Acute exacerbation of chronic obstructive airways disease Priority: Primary Status: Acute Assessment and Plan: On steroid and bronchodilators. advised on smoking cessation. See above (3) Community acquired pneumonia Priority: Primary Status: Acute Assessment and Plan: As above for respiratory failure, on IV Levaquin Strep/Legionella antigens negative. Will DC on few more days of Levaquin 750 mg QD for 8 more day for total of 10 days Qualifiers: Laterality: unspecified laterality Qualified Code(s): J18.9 - Pneumonia, unspecified organism (4) Hypertension Priority: Primary Status: Chronic Assessment and Plan: Stable continue home meds. Lisinopril and Metorpolol. Qualifiers: Hypertension type: essential hypertension Qualified Code(s): I10 - Essential (primary) hypertension (5) Depression Priority: Primary Status: Chronic Assessment and Plan: resume home med, cymbalta Qualifiers: Depression Type: unspecified Qualified Code(s): F32.9 - Major depressive disorder, single episode, unspecified (6) Morbid obesity Priority: Primary Status: Chronic Assessment and Plan: BMI 36.8. Lifestyle modifications emphasized (7) Hyperlipidemia Priority: Primary Status: Chronic Assessment and Plan: resume home med, Lipitor Qualifiers: Hyperlipidemia type: unspecified Qualified Code(s): E78.5 - Hyperlipidemia, unspecified (8) CAD (coronary artery disease) Priority: Secondary Status: Chronic Assessment and Plan: Resume home meds, ASA and Lipitor Qualifiers: Coronary Disease-Associated Artery/Lesion type: [place] artery [place] vs. transplanted heart: [place] heart Associated angina: angina presence unspecified Qualified Code(s): I25.10 - Atherosclerotic heart disease of [place] coronary artery without angina pectoris (9) Diabetes mellitus Priority: Secondary Status: Chronic Assessment and Plan: Metformin on hold, A1c 6.1 Low dose sliding scale coverage. Metformin and SSI Qualifiers: Diabetes mellitus type: type 2 Diabetes mellitus offset pressman insulin use: without offset pressman use Diabetes mellitus complication status: without complication Qualified Code(s): E11.9 - Type 2 diabetes mellitus without complications Hospital course: History of present illness: Ms. Johnston is a 53 year old female with past medical history of COPD and smoking history over 25 years who presented to the ER with progressive worsening of shortness of breath associated with persistent productive cough of yellowish sputum. The patient has history of COPD and she is on home oxygen however she has been experiencing increasing of oxygen requirement. The patient was evaluated by the ER staff and clinical presentation was evident for COPD exacerbation. The patient denies chest pain, palpitation, orthopnea, nocturnal dyspnea or progressive forcing of lower extremity edema. She denies history of DVT, PE or recent travel, admitted for further evaluation and management of COPD exacerbation. Discharge discussed with: patient Time spent discussing smoking cessation with patient: 3 to 10 minutes - Time Spent with Patient Total time spent providing and/or coordinating discharge services: Time spent: Greater than 30 minutes - Discharge Medications Prescriptions: No Action Lisinopril [Zestril] 10 mg PO QAM Metoprolol [Lopressor] 150 mg PO BID Ropinirole HCl [Requip] 0.5 mg PO HS Pravastatin Sodium [Pravachol] 40 mg PO QPM Duloxetine HCl [Cymbalta] 60 mg PO QAM Furosemide [Lasix] 20 mg PO DAILY PRN PRN Reason: Edema Oxygen 2 l NS HS PRN PRN Reason: Shortness Of Breath metFORMIN [Glucophage] 1,000 mg PO BID Potassium Chloride [K-Tab ER] 10 meq PO QAM Gabapentin [Neurontin] 800 mg PO TID Trazodone HCl 300 mg PO HS OxyCODONE/APAP 7.5/325 [Percocet 7.5/325 MG] 1 each PO Q8HR PRN PRN Reason: Pain [place]-3/Dha/Epa/Fish Oil [Fish Oil 1,000 mg Softgel] 1 cap PO DAILY Ferrous Sulfate [Iron] 325 mg PO DAILY Aspirin [Lo-Dose Aspirin EC] 81 mg PO DAILY DULoxetine [Cymbalta] 30 mg PO QAM Diclofenac Sodium [Voltaren] 50 mg PO Q8HR Tizanidine HCl 4 mg PO BID PRN PRN Reason: Spasms Ranitidine HCl [Acid Shampoo Technician] 150 mg PO DAILY PRN PRN Reason: Heartburn Omeprazole [PriLOSEC] 40 mg PO BID Home Medications: Duloxetine HCl [Cymbalta] 60 mg PO QAM 11/05/15 [History] Lisinopril [Zestril] 10 mg PO QAM 11/05/15 [History] Metoprolol [Lopressor] 150 mg PO BID 11/05/15 [History] Pravastatin Sodium [Pravachol] 40 mg PO QPM 11/05/15 [History] Ropinirole HCl [Requip] 0.5 mg PO HS 11/05/15 [History] Furosemide [Lasix] 20 mg PO DAILY PRN 07/23/16 [History] Oxygen 2 l NS HS PRN 09/28/16 [History] Potassium Chloride [K-Tab ER] 10 meq PO QAM 02/19/17 [History] metFORMIN [Glucophage] 1,000 mg PO BID 02/19/17 [History] Gabapentin [Neurontin] 800 mg PO TID 08/08/17 [History] Aspirin [Lo-Dose Aspirin EC] 81 mg PO DAILY 04/13/18 [History] Ferrous Sulfate [Iron] 325 mg PO DAILY 04/13/18 [History] [place]-3/Dha/Epa/Fish Oil [Fish Oil 1,000 mg Softgel] 1 cap PO DAILY 04/13/18 [History] OxyCODONE/APAP 7.5/325 [Percocet 7.5/325 MG] 1 each PO Q8HR PRN 04/13/18 [History] Trazodone HCl 300 mg PO HS 04/13/18 [History] DULoxetine [Cymbalta] 30 mg PO QAM 03/20/19 [History] Diclofenac Sodium [Voltaren] 50 mg PO Q8HR 03/20/19 [History] Omeprazole [PriLOSEC] 40 mg PO BID 03/20/19 [History] Ranitidine HCl [Acid Shampoo Technician] 150 mg PO DAILY PRN 03/20/19 [History] Tizanidine HCl 4 mg PO BID PRN 03/20/19 [History] Levofloxacin [Levaquin] 750 mg PO QDPC 10 Days #10 tablet 03/22/19 [Rx] PredniSONE [Deltasone] See Taper PO BID 7 Days #21 tablet 03/22/19 [Rx] Allergies/Adverse Reactions: Allergy/AdvReac Type Severity Reaction Status Date / Time tramadol Allergy Rash Verified 03/20/19 09:23 Date of admission: 03/20/19 11:21 Primary care physician: Jatin Mckoy MD Consults: 03/20/19 13:31 Consult to Nurse Navigator [CONS] Routine Comment: Discharging clinician: Cinthia Ferro Anticipated date of discharge: 03/22/19 - Constitutional Vitals: Temp Pulse Resp BP Pulse Ox 97.9 F 71 17 122/78 93 03/22/19 08:20 03/22/19 08:20 03/22/19 11:01 03/22/19 08:20 03/22/19 11:01 General appearance: Present: A&O X 3 Exam: General appearance: Present: A&O X 3 Head exam: Present: atraumatic, normocephalic Neck exam general surgery: Present: supple, trachea midline. Absent: lymphadenopathy Respiratory exam: Present: Rhonchi. Absent: wheezes, accessory muscle use, rales Cardiovascular exam: Present: RRR, +S1, +S2. Absent: diastolic murmur, gallop, rubs, systolic murmur GI/Abdominal exam: Present: normal bowel sounds, soft, no peritoneal signs. Absent: distended, tenderness Extremities exam: Present: warm, radial pulses palpable and symmetrical. Absent: calf tenderness, cyanotic, pedal edema. Neurology: CN II-XII grosly intact. Psych: mood and affect good - Patient Status Disposition: Home, Self-Care Condition: Good Overall status at discharge: patient is progressing back to baseline - Discharge Instructions Follow Up With: Jatin Mckoy MD [Primary Care Provider] - - Diet and Activity Activity: increase activity as tolerated Diet: low fat, low cholesterol, low salt diet
[2019-03-22 12:59] VITALS: BP 130/85
[2019-03-23] MEDS ORDERED: levoFLOXacin 500 MG TABLET PO SCH (09:00)
== END 2019-03-22 14:15 | disposition home or self-care (01) ==
LOC: EMEROOARM 09:10 → 3ANU 09:10 → SUATTDRO 11:21 → 3ANU 12:24
PROVIDERS: ADMIT Internal Medicine Nephrology; ATTEND Internal Medicine

== ENCOUNTER 2019-03-31 11:54 | Observation (INO) ==
[2019-03-31] MEDS ORDERED: 0.9 % Sodium Chloride 1,000 ML IVC ONE (13:35)
[2019-03-31] MEDS ORDERED: Promethazine 25 MG in 0.9 % Sodium Chloride 50 ML IVPB ONE (13:36)
--- NOTE | 2019-03-31 13:42 | Emergency Department Note ---
Disposition Clinical Impression: Dizziness, Near syncope Pneumonia Qualifiers: Pneumonia type: due to unspecified organism Laterality: right Lung location: lower lobe of lung Qualified Code(s): J18.1 - Lobar pneumonia, unspecified organism Disposition: Admitted As Inpatient Condition: Good Referrals: Jatin Mckoy MD [Primary Care Provider] - Forms: ED Satisfaction Letter Time of Disposition: 18:20 Dizziness HPI - General Chief Complaint: ED Dizziness Stated Complaint: Vertigo Time Seen by Provider: 03/31/19 12:37 Source: patient, EMS Nursing Notes Reviewed: Yes Vital Signs Reviewed: Yes - History of Present Illness HPI Narrative: This is a 53 year-old female with history of HTN, COPD, and DM2. She presents with dizziness/vertigo that began this morning at 8:30 AM, worse with movement and upright position. She reports nausea and 2 episodes of nonblood/nonbilious emesis. BP lower than usual, 74/56 at home. Sugar also lower than usual, around 90. Patient felt like she was about to pass out. She denies any associated headache, vision changes, focal weakness/numbness, fever, trauma/fall. Admitted last week with pneumonia; those symptoms have improved; she just reports an occasional cough. At the time of evaluation, symptoms improved, but still reports some nausea and lightheadedness. Pt Subjective Complaint: lightheadedness Onset (ago): hour(s) (4) Timing: awoke with symptoms Description: sense of movement, "room spinning", lightheadedness History of similar episodes: No History of trauma: No Severity: moderate Improves with: nothing Worsens with: movement Associated symptoms: Reports: weakness (generalized), nausea, vomiting. Denies: chest pain, fever, shortness of breath, syncope, vision changes, palpitations - Related Data Home Medications Medication Instructions Recorded Confirmed Duloxetine HCl [Cymbalta] 60 mg PO QAM 11/05/15 03/20/19 Lisinopril [Zestril] 10 mg PO QAM 11/05/15 03/20/19 Metoprolol [Lopressor] 150 mg PO BID 11/05/15 03/20/19 Pravastatin Sodium [Pravachol] 40 mg PO QPM 11/05/15 03/20/19 Ropinirole HCl [Requip] 0.5 mg PO HS 11/05/15 03/20/19 Furosemide [Lasix] 20 mg PO DAILY PRN 07/23/16 03/20/19 Oxygen 2 l NS HS PRN 09/28/16 03/20/19 Potassium Chloride [K-Tab ER] 10 meq PO QAM 02/19/17 03/20/19 metFORMIN [Glucophage] 1,000 mg PO BID 02/19/17 03/20/19 Gabapentin [Neurontin] 800 mg PO TID 08/08/17 03/20/19 Aspirin [Lo-Dose Aspirin EC] 81 mg PO DAILY 04/13/18 03/20/19 Ferrous Sulfate [Iron] 325 mg PO DAILY 04/13/18 03/20/19 [place]-3/Dha/Epa/Fish Oil [Fish Oil 1 cap PO DAILY 04/13/18 03/20/19 1,000 mg Softgel] OxyCODONE/APAP 7.5/325 [Percocet 1 each PO Q8HR PRN 04/13/18 03/20/19 7.5/325 MG] Trazodone HCl 300 mg PO HS 04/13/18 03/20/19 DULoxetine [Cymbalta] 30 mg PO QAM 03/20/19 03/20/19 Diclofenac Sodium [Voltaren] 50 mg PO Q8HR 03/20/19 03/20/19 Omeprazole [PriLOSEC] 40 mg PO BID 03/20/19 03/20/19 Ranitidine HCl [Acid Lead Teller] 150 mg PO DAILY PRN 03/20/19 03/20/19 Tizanidine HCl 4 mg PO BID PRN 03/20/19 03/20/19 Previous Rx's Medication Instructions Recorded Levofloxacin [Levaquin] 750 mg PO QDPC 10 Days #10 tablet 03/22/19 Allergies Allergy/AdvReac Type Severity Reaction Status Date / Time tramadol Allergy Rash Verified 03/20/19 09:23 All systems ED: reviewed and negative except as stated. Review of Systems: As Per HPI Constitutional: Denies: fever Eyes: Denies: vision change ENT ED: Denies: ear pain Cardiovascular: Denies: chest pain, palpitations, syncope Respiratory: Reports: cough. Denies: dyspnea Gastrointestinal: Reports: nausea, vomiting. Denies: abdominal pain, melena, hematochezia Musculoskeletal: Denies: back pain, neck pain Neurological: Reports: vertigo. Denies: headache, weakness, numbness, paresthesias Past Medical History - Past Medical History Medical history: Reports: COPD, diabetes, hyperlipidemia, hypertension Surgical history: Reports: cholecystectomy, hysterectomy Psychiatric history: Reports: anxiety, depression - Social History Smoking Status: Current every day smoker Smokeless Tobacco Status: No Alcohol use: Reports: none Drug use: Reports: none Physical Exam - General Limitations: no limitations General appearance: alert - Head Head exam: atraumatic, normocephalic, normal inspection - Eye Eye exam: Present: normal appearance, PERRL, EOMI. Absent: nystagmus - ENT ENT exam: normal exam, other (mucous membranes dry) - Neck Neck exam: Present: normal inspection. Absent: meningismus - Respiratory Respiratory exam: Present: normal lung sounds bilaterally. Absent: respiratory distress - Cardiovascular Cardiovascular exam: Present: regular rate, normal rhythm, normal heart sounds - Abdominal Exam Abdominal exam: Present: soft, Non-Tender. Absent: distention - Extremities Exam Extremities exam: Present: normal inspection. Absent: pedal edema, calf tenderness - Neurological Exam Neurological exam: Present: alert, oriented X3, CN II-XII intact, other (strength and sensation intact, normal finger/nose; no exacerbation of Sx with head or eye movement). Absent: motor sensory deficit - Psychiatric Psychiatric exam: Present: normal affect, normal mood - Skin Skin exam: Present: warm, dry, intact Course - Reevaluation(s) Reevaluation #1: On recheck, patient is comfortable-appearing but still reports dizziness. She has received about 400 mL IVF so far. Will re-assess upon completion of fluid bolus. Time: 15:24 Reevaluation #2: Patient nearing completion of first liter. Would like to try to eat. Time: 16:11 Reevaluation #3: Patient has taken and kept down food and drink and ambulated steadily to bathroom. Unfortunately, she still feels dizzy and is concerned about the episode of low blood pressure she had this AM. She would like to come in to the observation unit. Time: 18:17 - Consultations Consultation #1: Reviewed case with Dr. Davis, and patient accepted for admit. Time: 18:31 Vital Signs Temperature 99.0 F 03/31/19 12:00 Pulse Rate 65 07/05/19 12:00 Respiratory Rate 18 03/31/19 12:00 Blood Pressure 125/74 03/31/19 12:00 O2 Sat by Pulse Oximetry 100 03/31/19 12:00 Temperature 99.0 F 03/31/19 12:00 Pulse Rate 57 03/31/19 16:22 Respiratory Rate 14 03/31/19 13:02 Blood Pressure 111/68 03/31/19 16:22 O2 Sat by Pulse Oximetry 98 03/31/19 15:56 Oxygen Delivery Oxygen Delivery Room Air Dizziness - MDM Narrative Medical decision making narrative: 1526 - This is a 53 year-old female with history of HTN, DM, COPD. She presents with lightheadedness, associated with low blood pressure reading this morning. She endorses a spinning sensation, but overall this seems more like lightheadedness than true vertigo. Patient's neuro exam is nonfocal, head CT normal, EKG unremarkable, labs reassuring. No evidence of a neurologic or cardiac cause of dizziness at this time. While she got a low BP reading at home, BP has been stable here. No evidence of sepsis, blood losss, or cardiac cause of hypotension. We will continue to treat with IVF and willl re-assess. With symptomatic improvement, she will be appropriate for discharge. Otherwise, we will bring her in for observation. - Lab Data Lab results reviewed: Yes I reviewed the patient's lab results. Result diagrams: 03/31/19 13:47 03/31/19 13:47 Lab Results 03/31/19 03/31/19 03/31/19 Range/Units 13:47 13:47 14:14 WBC 7.3 (4.3-11.1) K/mcL RBC 4.35 (3.82-4.97) M/mcL Hgb 12.9 (11.5-15.4) g/dL Hct 38.9 (35.3-44.9) % MCV 89.4 (83.0-100.0) fL MCH 29.7 (28.0-33.3) pg MCHC 33.2 (31.6-35.5) g/dL RDW 14.3 (11.5-14.5) % Plt Count 298 (140-400) K/mcL MPV 9.0 L (9.4-12.4) fL Immature Gran % 0.7 (0-4) % Seg Neutrophils % 56.0 % Lymphocytes % 32.0 % Monocytes % 6.7 % Eosinophils % 4.1 % Basophils % 0.5 % Neutrophils # 4.1 (1.6-8.9) K/mcL Lymphocytes # 2.3 (0.6-4.6) K/mcL Monocytes # 0.5 (0.0-1.3) K/mcL Eosinophils # 0.3 (0.0-0.6) K/mcL Basophils # 0.0 (0.0-0.2) K/mcL Sodium 139 (136-145) mEq/L Potassium 4.1 (3.5-5.1) mEq/L Chloride 105 (98-107) mEq/L Carbon Dioxide 29 (23-29) mEq/L BUN 14 (6-20) mg/dL Creatinine 0.63 (0.60-1.20) mg/dL Est GFR ( Amer) > 60 (> 60) Est GFR (Non-Af Amer) > 60 (> 60) BUN/Creatinine Ratio 22 (6-26) Glucose 92 (70-105) mg/dL Calculated Osmolality 288 (280-300) Calcium 8.8 (8.6-10.3) mg/dL Troponin I < 0.03 (< 0.04) ng/mL Urine Color Yellow (Yellow) Urine Clarity Clear (Clear) Urine pH 7.0 (5.0-8.0) pH Units Ur Specific [place] 1.009 L (1.010-1.025) Urine Protein Negative (Neg-Trace) mg/dL Urine Glucose (UA) Normal (Normal) mg/dL Urine Ketones Negative (Negative) mg/dL Urine Blood Negative (Negative) Urine Nitrite Negative (Negative) Urine Bilirubin Negative (Negative) Urine Urobilinogen Normal (Normal) mg/dL Ur Leukocyte Esterase Negative (Negative) Ur Culture Indicated? NO (NO) - Radiology Data Radiology results reviewed: Yes I reviewed the patient's radiology results. CXR - RLL pneumonia CT head - NAD - EKG Data EKG attestation: Yes I reviewed and interpreted this EKG. EKG results narrative: NSR at 64. No significant ST or T wave abnormalities. QTc 397. EKG shows normal: sinus rhythm Rate: normal Rhythm: NSR [place]/QRS: normal
[2019-03-31 14:08] LABS: Basophils % 0.5 %; Eosinophils # 0.3 K/mcL (0.0-0.6); Eosinophils % 4.1 %; Hematocrit 38.9 % (35.3-44.9); Hemoglobin 12.9 g/dL (11.5-15.4); Immature Granulocytes % 0.7 % (0-4); Lymphocytes # 2.3 K/mcL (0.6-4.6); Mean Corpuscular HGB Conc 33.2 g/dL (31.6-35.5); Mean Corpuscular Hemoglobin 29.7 pg (28.0-33.3); Mean Corpuscular Volume 89.4 fL (83.0-100.0); Monocytes # 0.5 K/mcL (0.0-1.3); Monocytes % 6.7 %; Neutrophils # 4.1 K/mcL (1.6-8.9); Platelet Count 298 K/mcL (140-400); Red Blood Count 4.35 M/mcL (3.82-4.97); Red Cell Distribution Width 14.3 % (11.5-14.5); White Blood Count 7.3 K/mcL (4.3-11.1)
[2019-03-31 14:26] LABS: Bilirubin,Urine Negative (Negative); Blood,Urine Negative (Negative); Clarity,Urine Clear (Clear); Color,Urine Yellow (Yellow); Glucose,Urine (UA) Normal (Normal); Ketones,Urine Negative (Negative); Leukocyte Esterase,Urine Negative (Negative); Nitrite,Urine Negative (Negative); Protein,Urine Negative (Neg-Trace); Specific Gravity,Urine 1.009 (1.010-1.025); Urobilinogen,Urine Normal (Normal)
[2019-03-31 14:41] LABS: BUN/Creatinine Ratio 22 (6-26); Blood Urea Nitrogen 14 mg/dL (6-20); Calcium 8.8 mg/dL (8.6-10.3); Carbon Dioxide 29 mEq/L (23-29); Chloride 105 mEq/L (98-107); Glucose 92 mg/dL (70-105); Osmolality,Calculated 288 (280-300); Potassium 4.1 mEq/L (3.5-5.1); Sodium 139 mEq/L (136-145); Troponin I < 0.03 ng/mL (< 0.04); eGFR For African Americans > 60 (> 60); eGFR For Non-African Americans > 60 (> 60)
--- NOTE | 2019-03-31 19:40 | Internal Med History&Physical ---
Date of Encounter: 03/31/19 Time of Encounter: 19:33 Internal Medicine - H&P: HPI Chief complaint: Vertigo/Dizziness History of present illness: Ms. Johnston is a 53 year old female with past medical history significant for COPD on 3L home O2, hypertension, hyperlipidemia, DM2 and a [id number] smoker who presents to the ER presents to the ED with symptoms of dizziness, nausea and vomiting that began around 8:30 this morning. Patient states that she was in her usual state of health. She woke up around 5:30 and took her medications as per normal routine. Around 8:30 AM, patient began feeling nauseous. She checked her blood pressure around 9 AM and found it to be 74/55. Patient's blood pressure normally runs in the 110's. She states blood pressure remained l ow throughout the day. She had several episodes of nonbloody nonbilious emesis despite taking for Zofran tablets. Since then patient has been feeling dizzy and lightheaded. Patient decided to come into the ED for evaluation and states that she nearly passed out after standing up to get ready to leave with reports of feeling dizzy and lightheaded prior. Denies any loss of consciousness. No reports of flushing, diaphoresis, chest pain, palpitations. No provocation of dizziness with head movement. Patient reporting some shortness of breath but no wheezing or productive cough. No fever or chills. Patient endorses generalized weakness but states that her right side feels weaker than her left. No reports of numbness or tingling. Denies any slurred speech. Reports some double vision that resolved. Patient reports feeling shaky with ambulation but no tendency to lean to one side or the other. Patient was recently admitted for acute on chronic respiratory failure (on 3 L home O2) pneumonia and COPD exacerbation. No reports of postural instability. Denies symptoms of vertigo. No reports of hearing loss. On initial assessment patient was afebrile, hemodynamically stable with a heart rate of 66 saturating 92% on 2 L nasal cannula. Laboratory workup thus far was unremarkable. CT scan of the head was performed which showed no acute intracranial abnormality. Chest x-ray shows right lower lobe pneumonia. EKG shows sinus rhythm with nonspecific ST elevations similar to previous EKG. Patient given fluid bolus in the ED as well as meclizine and antiemetics. Will admit for further evaluation and rule out TIA. Patient wishes to be full code for this admission. Past Med Surg Social Fam HX - Past Medical History Medical history: COPD, diabetes, hyperlipidemia, hypertension Additional medical history: wears 3L o2 at night, sleep apnea-unable to wear cpap Psychiatric history: anxiety, depression - Past Surgical History Surgical History: cholecystectomy, hysterectomy Additional surgical history: exploratory surgery, back surgery, left heart cath, hemorrhoidectomy - Social History Smoking Status: Current every day smoker Smokeless Tobacco Status: No Alcohol use: none Drug use: none - Family History Father Family Member Ethnicity: Non- Living Status: Hx Family GI Disorders: Yes (cirrhosis) Mother Family Member Ethnicity: Non- Living Status: Still Living Hx Family Cardiac Disorders: Yes (HTN, Afib) Brother Family Member Ethnicity: Non- Living Status: Still Living Hx Family Respiratory Disorders: Yes (COPD) Hx Family Endocrine Disorder: Yes (DM) Internal Medicine - H&P: Meds Duloxetine HCl [Cymbalta] 60 mg PO QAM 11/05/15 [History] Lisinopril [Zestril] 10 mg PO QAM 11/05/15 [History] Metoprolol [Lopressor] 150 mg PO BID 11/05/15 [History] Pravastatin Sodium [Pravachol] 40 mg PO QPM 11/05/15 [History] Ropinirole HCl [Requip] 0.5 mg PO HS 11/05/15 [History] Furosemide [Lasix] 20 mg PO DAILY PRN 07/23/16 [History] Oxygen 2 l NS HS PRN 09/28/16 [History] Potassium Chloride [K-Tab ER] 10 meq PO QAM 02/19/17 [History] metFORMIN [Glucophage] 1,000 mg PO BID 02/19/17 [History] Gabapentin [Neurontin] 800 mg PO TID 08/08/17 [History] Aspirin [Lo-Dose Aspirin EC] 81 mg PO DAILY 04/13/18 [History] Ferrous Sulfate [Iron] 325 mg PO DAILY 04/13/18 [History] [place]-3/Dha/Epa/Fish Oil [Fish Oil 1,000 mg Softgel] 1 cap PO DAILY 04/13/18 [History] OxyCODONE/APAP 7.5/325 [Percocet 7.5/325 MG] 1 each PO Q8HR PRN 04/13/18 [History] Trazodone HCl 300 mg PO HS 04/13/18 [History] DULoxetine [Cymbalta] 30 mg PO QAM 03/20/19 [History] Diclofenac Sodium [Voltaren] 50 mg PO Q8HR 03/20/19 [History] Omeprazole [PriLOSEC] 40 mg PO BID 03/20/19 [History] Ranitidine HCl [Acid Punch Operator] 150 mg PO DAILY PRN 03/20/19 [History] Tizanidine HCl 4 mg PO BID PRN 03/20/19 [History] Colesevelam HCl [Welchol] 1,875 mg PO BID 04/01/19 [History] Allergy/AdvReac Type Severity Reaction Status Date / Time tramadol Allergy Rash Verified 04/01/19 16:57 All Systems PM: A 10-system review of systems was performed and is negative for pertinent findings except as documented above in the HPI. - Constitutional Constitutional: no chills, no fever(s), no night sweats - EENT Eyes: no change in vision, no discharge, no pain, no photophobia Ears: no ear discharge, no ear pain, no tinnitus Nose, mouth and throat: no dysphagia, no nasal discharge, no neck pain, no sore throat - Cardiovascular Cardiovascular ROS IM: no chest pain, no diaphoresis, no dyspnea, no lightheadedness, no palpitations, no syncope - Respiratory Respiratory: no cough, no dyspnea, no wheezing, no excessive phlegm production - Gastrointestinal Gastrointestinal: no abdominal pain, no diarrhea, no hematemesis, no hematochezia, no melena, no nausea, no vomiting - Genitourinary Genitourinary: no change in urinary stream, no dysuria, no flank pain, no hematuria - Musculoskeletal Musculoskeletal ROS IM: no numbness, no tingling - Integumentary Integumentary IM: no rash, no unusual bruising - Neurological Neurological ROS: no confusion, no convulsions, no focal weakness, no numbness, no tingling, no tremor(s) - Hematologic/Lymphatic Hematologic/Lymphatic: no easy bruising - Constitutional Vitals: Temp Pulse Resp BP Pulse Ox 99.0 F 66 17 103/64 98 03/31/19 12:00 03/31/19 18:35 07/05/19 18:35 03/31/19 18:35 03/31/19 18:35 Exam: General: Alert and oriented 3 lying in bed in no acute distress Skin:Normal color, no rash, no lesions. HEENT:EOM, pupils equal, round and reactive. Cardiovascular:Normal S1 & S2, no rubs, murmurs or gallops. No JVD. Pulse regular. Lungs:Normal breath sounds, no wheezes or crackles. Abdomen:Soft, non-tender, no rigidity. Extremities:No deformity, no edema or tenderness, no joint swelling or clubbing. Neurological:Normal cognition and motor skills. Cranial nerves II through XII intact. Upper extremity strength 5 out of 5 on the left, slightly weaker on the right side. Lower extremity strength 5 out of 5 bilaterally. Sensation intact. No evidence of nystagmus. No dysmetria. No pronator drift. Pulses:Carotid and radial pulses normal +2. Rest of the physical exam is non contributory Internal Med - H&P Results - Labs CBC & Chem 7: 04/01/19 01:10 04/01/19 01:10 Labs: Short CBC 03/31/19 Range/Units 13:47 WBC 7.3 (4.3-11.1) K/mcL Hgb 12.9 (11.5-15.4) g/dL Hct 38.9 (35.3-44.9) % Plt Count 298 (140-400) K/mcL Neutrophils # 4.1 (1.6-8.9) K/mcL BMP 03/31/19 13:47 Sodium 139 Potassium 4.1 Chloride 105 Carbon Dioxide 29 BUN 14 Creatinine 0.63 Glucose 92 Calcium 8.8 Cardiac Enzymes 03/31/19 Range/Units 13:47 Troponin I < 0.03 (< 0.04) ng/mL Urine 03/31/19 Range/Units 14:14 Urine Color Yellow (Yellow) Urine Clarity Clear (Clear) Urine pH 7.0 (5.0-8.0) pH Units Ur Specific [place] 1.009 L (1.010-1.025) Urine Protein Negative (Neg-Trace) mg/dL Urine Glucose (UA) Normal (Normal) mg/dL - Impressions ITS Impressions Chest X-Ray 03/31/19 13:35 IMPRESSION: Right lower lobe pneumonia. Continued radiographic follow-up recommended. D/ / 03/31/2019 14:03:15 Gianfranco Acosta MD / anthony Interpreting Provider: Gianfranco Acosta MD Head CT 03/31/19 13:35 IMPRESSION: No acute intracranial process identified. Small fluid level within the left maxillary sinus. Correlation with any signs or symptoms of left maxillary sinusitis is recommended. D/ / Joselito Diaz MD / Joselito Diaz MD Interpreting Provider: Joselito Diaz MD - Assessment and Plan (1) Dizziness Current Visit: Yes Status: Acute Assessment and plan: Patient reporting dizziness and near-syncope shortly after standing in the setting of several episodes of nausea vomiting and reported hypotension with a blood pressure in the 70s over 50s at home. On arrival patient was hemodynamically stable. No evidence of tachycardia though patient is beta wilfrido. Laboratory workup unremarkable. Orthostatic vital signs were obtained in the ED which did not meet criteria for orthostatic hypotension. No fever, chills. Patient does not appear septic. Chest x-ray showing right lower lobe pneumonia. However, when comparing to previous chest x-ray, does not appear to be unchanged which would be expected. Furthermore, patient not reporting any respiratory symptoms to suggest persistent infection. Patient denies any recent changes in her medication. EKG within normal limits. Patient reported weakness in her right extremity and transient double vision. On physical examination patient appears to be neurologically intact. There is subtle weakness in the right upper extremity compared to the left. Patient does have risk factors for TIA/CVA given her hypertension, diabetes and smoking history. No prior history of stroke. This time I suspect symptoms likely secondary to dehydration in the setting of several episodes of nausea and vomiting. Possible TIA/CVA though less likely given lack of any other neurological features, however will rule out. -Telemetry -Supportive fluids -Neuro checks every 4 hours -Hold antihypertensives for now -We will obtain echo and carotid duplex in the morning -We will obtain MRI to rule out cerebrovascular etiology (2) Near syncope Current Visit: Yes Status: Acute Assessment and plan: See "Dizziness" above. (3) Diabetes mellitus Current Visit: No Status: Chronic Assessment and plan: Blood glucose stable at 92. -Diabetic diet -Blood glucose checks before meals at bedtime with sliding scale Qualifiers: Diabetes mellitus type: type 2 Diabetes mellitus fci insulin use: without fci use Diabetes mellitus complication status: without complication Qualified Code(s): E11.9 - Type 2 diabetes mellitus without complications (4) Hyperlipidemia Current Visit: No Status: Chronic Assessment and plan: Continue home statin medication Qualifiers: Hyperlipidemia type: unspecified Qualified Code(s): E78.5 - Hyperlipidemia, unspecified (5) Hypertension Current Visit: No Status: Chronic Assessment and plan: Blood pressure currently stable. -Will continue with fluids -Hold Lasix and ELMO inhibitor for now Qualifiers: Hypertension type: essential hypertension Qualified Code(s): I10 - Essential (primary) hypertension (6) DVT prophylaxis Current Visit: No Status: Acute Assessment and plan: Subcutaneous heparin - Time Spent With Patient Total time spent is greater than 50% in coordination of care (as documented) at patient's floor/unit and/or counseling patient:
[2019-03-31] MEDS ORDERED: Naloxone 0.4 MG/ML INJ IVP PRN (20:30)
[2019-03-31] MEDS ORDERED: Famotidine 20 MG TABLET PO PRN (20:42)
[2019-03-31] MEDS ORDERED: tiZANidine 4 MG TABLET PO PRN (20:42)
[2019-03-31] MEDS ORDERED: Perflutren Lipid Microsphere 1.3 ML in 0.9 % Sodium Chloride 8.7 ML IVP ONE (21:07)
[2019-03-31] MEDS ORDERED: *HR* Dextrose 50 % in Water (Syg) 50 ML SYRINGE IVP PRN (21:15)
[2019-03-31] MEDS ORDERED: Dextrose Gel 15 GM/37.5 ML TUBE PO PRN ×2 (21:15)
[2019-03-31] MEDS ORDERED: D5% in Water 1,000 ML IVC PRN (21:15)
[2019-03-31] MEDS: rOPINIRole 0.25 MG TABLET PO SCH (22:14)
[2019-03-31] MEDS: traZODone 50 MG TABLET PO SCH (22:15)
[2019-03-31] MEDS: 0.9 % Sodium Chloride 1,000 ML IVC SCH (22:15)
[2019-03-31] MEDS: *HR* Heparin 5,000 UNIT/ML VIAL SQ SCH (22:15)
[2019-03-31] MEDS: Gabapentin 400 MG CAPSULE PO SCH (22:15)
[2019-03-31] MEDS: Insulin LISPRO 300 UNITS/3 ML VIAL SQ SCH (22:41)
[2019-04-01 01:47] LABS: Basophils # 0.1 K/mcL (0.0-0.2); Basophils % 0.7 %; Eosinophils # 0.3 K/mcL (0.0-0.6); Hematocrit 37.3 % (35.3-44.9); Hemoglobin 12.2 g/dL (11.5-15.4); Immature Granulocytes % 0.9 % (0-4); Lymphocytes # 2.5 K/mcL (0.6-4.6); Mean Corpuscular HGB Conc 32.7 g/dL (31.6-35.5); Mean Corpuscular Hemoglobin 29.6 pg (28.0-33.3); Mean Corpuscular Volume 90.5 fL (83.0-100.0); Monocytes # 0.5 K/mcL (0.0-1.3); Monocytes % 7.5 %; Neutrophils # 3.5 K/mcL (1.6-8.9); Platelet Count 282 K/mcL (140-400); Red Blood Count 4.12 M/mcL (3.82-4.97); Red Cell Distribution Width 14.4 % (11.5-14.5); Segmented Neutrophils % 50.9 %; White Blood Count 6.9 K/mcL (4.3-11.1)
[2019-04-01 01:53] LABS: INR 0.9; Prothrombin Time 10.2 Seconds (9.4-12.1)
[2019-04-01 01:56] LABS: Activated Partial Thrombo Time 28.1 Seconds (26.0-36.0)
[2019-04-01 02:29] LABS: Alanine Aminotransferase 13 Units/L (7-52); Albumin 3.3 g/dL (3.5-5.7); Albumin/Globulin Ratio 1.7 (1.1-2.2); Alkaline Phosphatase 60 Units/L (34-104); Aspartate Amino Transferase 11 Units/L (13-39); BUN/Creatinine Ratio 18 (6-26); Bilirubin,Total 0.3 mg/dL (0.3-1.0); Blood Urea Nitrogen 14 mg/dL (6-20); Calcium 8.4 mg/dL (8.6-10.3); Carbon Dioxide 29 mEq/L (23-29); Chloride 105 mEq/L (98-107); Globulin 1.9 g/dL (2.4-3.5); Glucose 142 mg/dL (70-105); Magnesium 1.7 mg/dL (1.6-2.6); Osmolality,Calculated 293 (280-300); Potassium 4.1 mEq/L (3.5-5.1); Sodium 140 mEq/L (136-145); Total Protein 5.2 g/dL (6.4-8.9); eGFR For African Americans > 60 (> 60); eGFR For Non-African Americans > 60 (> 60)
[2019-04-01] MEDS: *HR* Heparin 5,000 UNIT/ML VIAL SQ SCH ×3 (05:37→20:08)
[2019-04-01] MEDS: Acetaminophen 325 MG TABLET PO PRN ×2 (06:51→13:10)
[2019-04-01] MEDS: Insulin LISPRO 300 UNITS/3 ML VIAL SQ SCH ×3 (07:44→17:31)
[2019-04-01] MEDS: Aspirin Enteric Coated 81 MG Tablet PO SCH (07:53)
[2019-04-01] MEDS: levoFLOXacin 750 MG TABLET PO SCH (07:53)
[2019-04-01] MEDS: Gabapentin 400 MG CAPSULE PO SCH ×3 (07:54→20:08)
[2019-04-01] MEDS: (Omega-3/Dha/Epa/Fish Oil [Fish Oil 1,000 Mg Softgel]) PO SCH (07:58)
[2019-04-01] MEDS ORDERED: NON-FORMULARY MEDICATION 1 EACH EACH (Duloxetine Hcl [Cymbalta] 60 MG) PO SCH (09:00)
[2019-04-01] MEDS: 0.9 % Sodium Chloride 1,000 ML IVC SCH (12:21)
--- NOTE | 2019-04-01 14:13 | Internal Med Progress Note ---
Hospitalist Progress Note - Encounter Date of Encounter: 04/01/19 Time of Encounter: 08:00 - Subjective Interval History: No events overnight. Patient had no chest pain, palpitation or shortness of breath. Patient denied fever or chills or night sweats. Patient has no nausea/vomiting or abdominal pain this a.m. She states she will get a bit dizzy however it improved since yesterday - Exam Vitals: Temp Pulse Resp BP Pulse Ox 98.0 F 66 16 98/67 96 04/01/19 11:47 04/01/19 11:47 04/01/19 11:47 04/01/19 11:47 04/01/19 11:47 Exam: General: Patient is alert, oriented 3. Head: Atraumatic, normal inspection, normocephalic. Eye: EOMI, PERRLA, no scleral icterus noted. ENT: Mucous membranes moist. No odontogenic infection noted. Large amount of oral secretions noted. Neck: Normal inspection, no meningismus. Respiratory: No respiratory distress, rhonchi, or wheezes noted. Cardiovascular: Regular rate and irregular rhythm, S1 and S2 audible. No murmurs, rubs, or gallops. GI: Soft, nondistended, normal bowel sounds. Extremities:No joint swelling, pedal edema, or tenderness noted. Neurological: Alert, oriented 3, no focal deficits. Psychiatric: normal affect, normal mood. Skin: Dry, intact, warm. Normal color. No rashes. - Assessment and Plan (1) Dizziness Current Visit: Yes Status: Acute (2) Hypertension Current Visit: No Status: Chronic (3) Hyperlipidemia Current Visit: No Status: Chronic (4) Diabetes mellitus Current Visit: No Status: Chronic (5) Near syncope Current Visit: Yes Status: Acute (6) DVT prophylaxis Current Visit: No Status: Acute - Summary of Assessment and Plan Summary of Assessment and Plan: 53-year-old female with history of COPD on 3 L home O2, HTN, CAD, type II DM, remote smoking history, depression, anxiety, spinal surgery who presented to the hospital due to dizziness, nausea or vomiting. Patient was in the hospital last week due to pneumonia which was treated with Levaquin with 2 days left. Dizziness: Improving - I suspect this is from polypharmacy given the fact she is on opiates, gabapentin and Cymbalta. - Suspicion at admission was for TIA however her workup including MRI of the brain was negative, carotid Doppler have minimal plaques bilaterally. - EKG revealed sinus rhythm with early repolarization changes, troponin is negative 2. Echocardiogram with EF 60%, with mild MR. - Orthostatic vitals were negative in the ED. We will continue IV fluids. - Discussed with the patient about her high dose of gabapentin, she was discussed with her psychiatrist. - We will hold Lopressor for today - We can DC [facility]. Pneumonia: - Was diagnosed last visit, patient reported no increase in her cough, oxygen requirement or sputum production. She denied any chest pain - She has 1 day left on her Levaquin, we will continue. - She will require follow-up chest x-ray in 6 weeks to confirm resolution of her pneumonia. Type II DM: - On metformin at home, was switched to low sliding scale, ADA, blood sugar check before meals and at bedtime HTN: - We will hold Lopressor, and lisinopril depression/anxiety: - She is on high doses of gabapentin 800 mg 3 times a day for her anxiety. She will discuss with her psychiatrist to decrease the doses and her next visit. - Continue Cymbalta History of spine surgery: - Continue tizanidine Hyperlipidemia: - Continue Lipitor DVT prophylaxis: - Continue subacute heparin CODE STATUS: Full code Diet: Diabetic Disposition: In observation, discharg tomorrow. - Time Spent with Patient Total time spent is greater than 50% in coordination of care (as documented) at patient's floor/unit and/or counseling patient: Plan of Care Discussed with: patient Internal Medicine: Result - Labs CBC & Chem 7: 04/01/19 01:10 04/01/19 01:10 Labs: Short CBC 03/31/19 04/01/19 Range/Units 13:47 01:10 WBC 7.3 6.9 (4.3-11.1) K/mcL Hgb 12.9 12.2 (11.5-15.4) g/dL Hct 38.9 37.3 (35.3-44.9) % Plt Count 298 282 (140-400) K/mcL Neutrophils # 4.1 3.5 (1.6-8.9) K/mcL BMP 03/31/19 04/01/19 13:47 01:10 Sodium 139 140 Potassium 4.1 4.1 Chloride 105 105 Carbon Dioxide 29 29 BUN 14 14 Creatinine 0.63 0.76 Glucose 92 142 H Calcium 8.8 8.4 L Cardiac Enzymes 03/31/19 03/31/19 Range/Units 13:47 22:18 Troponin I < 0.03 < 0.03 (< 0.04) ng/mL Liver Function 04/01/19 Range/Units 01:10 Total Bilirubin 0.3 (0.3-1.0) mg/dL AST 11 L (13-39) Units/L ALT 13 (7-52) Units/L Alkaline Phosphatase 60 (34-104) Units/L Albumin 3.3 L (3.5-5.7) g/dL Urine 03/31/19 Range/Units 14:14 Urine Color Yellow (Yellow) Urine Clarity Clear (Clear) Urine pH 7.0 (5.0-8.0) pH Units Ur Specific [place] 1.009 L (1.010-1.025) Urine Protein Negative (Neg-Trace) mg/dL Urine Glucose (UA) Normal (Normal) mg/dL - ABG Interpretation ABG results: PT/INR, D-dimer PT 10.2 Seconds (9.4-12.1) 04/01/19 01:10 - Impressions Impressions Chest X-Ray 03/31/19 13:35 IMPRESSION: Right lower lobe pneumonia. Continued radiographic follow-up recommended. D/ : / 03/31/2019 14:03:15 Gianfranco Acosta MD / anthony Interpreting Provider: Gianfranco Acosta MD Head CT 03/31/19 13:35 IMPRESSION: No acute intracranial process identified. Small fluid level within the left maxillary sinus. Correlation with any signs or symptoms of left maxillary sinusitis is recommended. D/ / Joselito Diaz MD / Joselito Diaz MD Interpreting Provider: Joselito Diaz MD Echocardiogram 03/31/19 20:49 Impressions: LVEF 60%. Mild left ventricular diastolic dysfunction. Right ventricular structure and function not well evaluated. Mild mitral regurgitation. No pulmonary hypertension. No evidence of PFO with agitated saline contrast. Left Ventricular Wall Motion: Rest Echo Findings All wall segments showed normal motion. Findings: Study Quality * Technically adequate exam. ECG Findings * Normal sinus rhythm. Left Ventricle * LVEF 60%. * Normal LV chamber size, wall thickness and function. * Mild left ventricular diastolic dysfunction. Right Ventricle * Right ventricular structure and function not well evaluated. Left Atrium * Mildly dilated left atrium. Right Atrium * Normal right atrial size. Aortic Valve * No aortic regurgitation. * Trileaflet aortic valve. * No aortic stenosis. Mitral Valve * Normal mitral valve structure. * No mitral stenosis. * Mild mitral regurgitation. Tricuspid Valve * Tricuspid valve not well visualized. * Estimated RA pressure is 8 mmHg. Pulmonic Valve * Pulmonic valve is not well visualized. * No pulmonic stenosis. * No pulmonic regurgitation. Pulmonary Artery * Pulmonary artery not well visualized. Aorta * Normally sized aortic root. Pericardium * There is no pericardial effusion present. Interatrial Septum * No evidence of PFO by color Doppler. * No evidence of PFO with agitated saline contrast. IVC * The IVC is not dilated. * < 50% respiratory change. Brain MRI 04/01/19 07:00 IMPRESSION: No evidence of acute ischemia Minimal chronic small vessel ischemic disease within the periventricular white matter D/ / Jens Marshall MD / Jens Marshall MD Interpreting Provider: Jens Marshall MD Consult Discharge Plan - Plan Referrals: Jatin Mckoy MD [Primary Care Provider] - (2) Hypertension Qualifiers: Hypertension type: essential hypertension Qualified Code(s): I10 - Essential (primary) hypertension (3) Hyperlipidemia Qualifiers: Hyperlipidemia type: unspecified Qualified Code(s): E78.5 - Hyperlipidemia, unspecified (4) Diabetes mellitus Qualifiers: Diabetes mellitus type: type 2 Diabetes mellitus 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
[2019-04-01] MEDS: *HR* OxyCODONE/APAP 7.5/325 TABLET PO PRN (16:03)
[2019-04-01] MEDS: traZODone 50 MG TABLET PO SCH (20:08)
[2019-04-01] MEDS: rOPINIRole 0.25 MG TABLET PO SCH (20:08)
[2019-04-02] MEDS: *HR* OxyCODONE/APAP 7.5/325 TABLET PO PRN (02:35)
[2019-04-02] MEDS: *HR* Heparin 5,000 UNIT/ML VIAL SQ SCH (05:46)
[2019-04-02 06:58] VITALS: BP 132/78
[2019-04-02] MEDS: Insulin LISPRO 300 UNITS/3 ML VIAL SQ SCH (07:57)
[2019-04-02] MEDS: (Omega-3/Dha/Epa/Fish Oil [Fish Oil 1,000 Mg Softgel]) PO SCH (07:58)
[2019-04-02] MEDS: Aspirin Enteric Coated 81 MG Tablet PO SCH (08:06)
[2019-04-02] MEDS: Gabapentin 400 MG CAPSULE PO SCH (08:06)
[2019-04-02] MEDS: levoFLOXacin 750 MG TABLET PO SCH (08:06)
--- NOTE | 2019-04-02 09:22 | Electrocardiograph Report ---
[place] [facility] Test Date: 2019-03-31 Pat Name: Evelin Johnston Department: EXAM20 Room: 3B35 Gender: F Backup Operator: : 1965 Requested By: Humberto Saleh Order Number: [id number] Reading MD: Steven Ulrich Measurements Intervals [place] Rate: 64 P: -5 [place]: 167 QRS: 70 QRSD: 81 T: 62 QT: 384 QTc: 397 Interpretive Statements Sinus rhythm ST elev, probable normal early repol pattern Electronically Signed On 04-02-2019 9:21:04 EDT by Steven Ulrich
--- NOTE | 2019-04-02 09:29 | Discharge Summary ---
- NOTES TO OUTPATIENT PROVIDER Notes to Outpatient Provider: I discussed with the patient the need to cut down on multiple doses like gabapentin. I feel this polypharmacy on top of Abx and metformin treatement. i decrease her lopressor to 50mg bid from 150 bid. Orders not resulted at time of discharge: Pending orders 04/01/19 07:41 EKG [ECG 12 lead ECG] [ECG] Stat Date of Encounter: 04/02/19 Time of Encounter: 09:00 - Discharge Diagnosis (1) Dizziness Priority: Primary Status: Resolved (2) Hypertension Priority: Secondary Status: Chronic Qualifiers: Hypertension type: essential hypertension Qualified Code(s): I10 - Essential (primary) hypertension (3) Hyperlipidemia Priority: Secondary Status: Chronic Qualifiers: Hyperlipidemia type: unspecified Qualified Code(s): E78.5 - Hyperlipidemia, unspecified (4) Diabetes mellitus Priority: Secondary Status: Chronic Qualifiers: Diabetes mellitus type: type 2 Diabetes mellitus care home insulin use: without care home use Diabetes mellitus complication status: without complication Qualified Code(s): E11.9 - Type 2 diabetes mellitus without complications (5) Near syncope Priority: Secondary Status: Resolved (6) DVT prophylaxis Priority: Secondary Status: Acute Hospital course: Ms. Johnston is a 53-year-old female with history of COPD on 3 L home O2, HTN, CAD, type II DM, remote smoking history, depression, anxiety, spinal surgery, recent admission due to PNA who presented to the hospital due to dizziness, hypotension, nausea and vomiting. Patient was in the hospital last week due to pneumonia which was treated with Levaquin with 2 days left. Her symptoms were managed as follows: Dizziness: - I suspect this is from polypharmacy given the fact she is on opiates, gabapentin and Cymbalta. Could also be 2/2 levaquin and metformin. - Suspicion at admission was for TIA however her workup including MRI of the brain was negative, carotid Doppler have minimal plaques bilaterally. - EKG revealed sinus rhythm with early repolarization changes, troponin is negative 2. Echocardiogram with EF 60%, with mild MR. - Orthostatic vitals were negative in the ED. Discussed with the patient about her high dose of gabapentin, she was discussed with her psychiatrist. Patient was treated with IVF and holding her Lopressor which helped with the symptoms. Pneumonia: - she finished the 2 days left from her course. Had already arrangments to repeat CXR in few days. today, patient is asymptomatic, HDS. she will be discharged home in stable condition. she will follow with her PCP in 3 days and psychiatrist in 2 months. Discharge discussed with: patient - Time Spent with Patient Total time spent providing and/or coordinating discharge services:45 minutes - Discharge Medications Prescriptions: Continued Lisinopril [Zestril] 10 mg PO QAM Ropinirole HCl [Requip] 0.5 mg PO HS Pravastatin Sodium [Pravachol] 40 mg PO QPM Duloxetine HCl [Cymbalta] 60 mg PO QAM Furosemide [Lasix] 20 mg PO DAILY PRN PRN Reason: Edema Oxygen 2 l NS HS PRN PRN Reason: Shortness Of Breath metFORMIN [Glucophage] 1,000 mg PO BID Potassium Chloride [K-Tab ER] 10 meq PO QAM Gabapentin [Neurontin] 800 mg PO TID Trazodone HCl 300 mg PO HS OxyCODONE/APAP 7.5/325 [Percocet 7.5/325 MG] 1 each PO Q8HR PRN PRN Reason: Pain [place]-3/Dha/Epa/Fish Oil [Fish Oil 1,000 mg Softgel] 1 cap PO DAILY Ferrous Sulfate [Iron] 325 mg PO DAILY Aspirin [Lo-Dose Aspirin EC] 81 mg PO DAILY DULoxetine [Cymbalta] 30 mg PO QAM Diclofenac Sodium [Voltaren] 50 mg PO Q8HR Tizanidine HCl 4 mg PO BID PRN PRN Reason: Spasms Ranitidine HCl [Acid Solderer Torch] 150 mg PO DAILY PRN PRN Reason: Heartburn Omeprazole [PriLOSEC] 40 mg PO BID Colesevelam HCl [Welchol] 1,875 mg PO BID Changed Metoprolol [Lopressor] 50 mg PO BID #60 tablet Home Medications: Duloxetine HCl [Cymbalta] 60 mg PO QAM 11/05/15 [History] Lisinopril [Zestril] 10 mg PO QAM 11/05/15 [History] Pravastatin Sodium [Pravachol] 40 mg PO QPM 11/05/15 [History] Ropinirole HCl [Requip] 0.5 mg PO HS 11/05/15 [History] Furosemide [Lasix] 20 mg PO DAILY PRN 07/23/16 [History] Oxygen 2 l NS HS PRN 09/28/16 [History] Potassium Chloride [K-Tab ER] 10 meq PO QAM 02/19/17 [History] metFORMIN [Glucophage] 1,000 mg PO BID 02/19/17 [History] Gabapentin [Neurontin] 800 mg PO TID 08/08/17 [History] Aspirin [Lo-Dose Aspirin EC] 81 mg PO DAILY 04/13/18 [History] Ferrous Sulfate [Iron] 325 mg PO DAILY 04/13/18 [History] [place]-3/Dha/Epa/Fish Oil [Fish Oil 1,000 mg Softgel] 1 cap PO DAILY 04/13/18 [History] OxyCODONE/APAP 7.5/325 [Percocet 7.5/325 MG] 1 each PO Q8HR PRN 04/13/18 [History] Trazodone HCl 300 mg PO HS 04/13/18 [History] DULoxetine [Cymbalta] 30 mg PO QAM 03/20/19 [History] Diclofenac Sodium [Voltaren] 50 mg PO Q8HR 03/20/19 [History] Omeprazole [PriLOSEC] 40 mg PO BID 03/20/19 [History] Ranitidine HCl [Acid Solderer Torch] 150 mg PO DAILY PRN 03/20/19 [History] Tizanidine HCl 4 mg PO BID PRN 03/20/19 [History] Colesevelam HCl [Welchol] 1,875 mg PO BID 04/01/19 [History] Metoprolol [Lopressor] 50 mg PO BID #60 tablet 04/02/19 [Rx] Allergies/Adverse Reactions: Allergy/AdvReac Type Severity Reaction Status Date / Time tramadol Allergy Rash Verified 04/01/19 16:57 Date of admission: 03/31/19 19:01 Primary care physician: Jatin Mckoy MD - Constitutional Vitals: Temp Pulse Resp BP Pulse Ox 97.5 F L 57 16 132/78 91 04/02/19 06:57 04/02/19 06:57 04/02/19 06:57 04/02/19 06:57 04/02/19 08:00 Exam: General: Patient is alert, oriented 3. Head: Atraumatic, normal inspection, normocephalic. Eye: EOMI, PERRLA, no scleral icterus noted. ENT: Mucous membranes moist. No odontogenic infection noted. Large amount of oral secretions noted. Neck: Normal inspection, no meningismus. Respiratory: No respiratory distress, rhonchi, or wheezes noted. Cardiovascular: Regular rate and irregular rhythm, S1 and S2 audible. No murmurs, rubs, or gallops. GI: Soft, nondistended, normal bowel sounds. Extremities:No joint swelling, pedal edema, or tenderness noted. Neurological: Alert, oriented 3, no focal deficits. Psychiatric: normal affect, normal mood. - Patient Status Disposition: Home, Self-Care Condition: Good Functional capacity at discharge: independent ambulation - Discharge Instructions Follow Up With: Jatin Mckoy MD [Primary Care Provider] - (Follow up has been requested ) - Diet and Activity Activity: resume usual activities as tolerated Diet: diabetic diet
--- NOTE | 2019-04-03 22:08 | Electrocardiograph Report ---
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
== END 2019-04-02 10:50 | disposition home or self-care (01) ==
LOC: 3BNU 11:54 → EMEROOARM 11:54 → SUATTDRO 19:01 → 3BNU 19:51
PROVIDERS: ADMIT Internal Medicine; ATTEND Internal Medicine

== ENCOUNTER 2019-09-20 20:30 | Inpatient (IN) ==
[2019-09-20] MEDS ORDERED: 0.9 % Sodium Chloride 500 ML IVC ONE (20:45)
[2019-09-20 21:16] LABS: Basophils % 0.3 %; Eosinophils # 0.1 K/mcL (0.0-0.6); Eosinophils % 0.8 %; Hematocrit 47.3 % (35.3-44.9); Hemoglobin 15.5 g/dL (11.5-15.4); Immature Granulocytes % 0.4 % (0-4); Lymphocytes # 1.3 K/mcL (0.6-4.6); Lymphocytes % 12.1 %; Mean Corpuscular HGB Conc 32.8 g/dL (31.6-35.5); Mean Corpuscular Hemoglobin 28.9 pg (28.0-33.3); Mean Corpuscular Volume 88.2 fL (83.0-100.0); Mean Platelet Volume 9.1 fL (9.4-12.4); Monocytes # 0.2 K/mcL (0.0-1.3); Monocytes % 1.9 %; Neutrophils # 8.8 K/mcL (1.6-8.9); Platelet Count 273 K/mcL (140-400); Red Blood Count 5.36 M/mcL (3.82-4.97); Red Cell Distribution Width 13.7 % (11.5-14.5); Segmented Neutrophils % 84.5 %; White Blood Count 10.4 K/mcL (4.3-11.1)
[2019-09-20 21:30] LABS: Bilirubin,Urine Negative (Negative); Blood,Urine Negative (Negative); Clarity,Urine Clear (Clear); Color,Urine Yellow (Yellow); Glucose,Urine (UA) Normal (Normal); Ketones,Urine Negative (Negative); Leukocyte Esterase,Urine Negative (Negative); Nitrite,Urine Negative (Negative); PH,Urine 6.5 pH Units (5.0-8.0); Protein,Urine Negative (Neg-Trace); Specific Gravity,Urine 1.026 (1.010-1.025); Urobilinogen,Urine Normal (Normal)
[2019-09-20 21:31] LABS: INR 0.9; Prothrombin Time 10.1 Seconds (9.4-12.1)
[2019-09-20 21:34] LABS: Activated Partial Thrombo Time 29.8 Seconds (26.0-36.0)
[2019-09-20 21:45] LABS: Alanine Aminotransferase 16 Units/L (7-52); Albumin 4.7 g/dL (3.5-5.7); Albumin/Globulin Ratio 1.4 (1.1-2.2); Alkaline Phosphatase 92 Units/L (34-104); Aspartate Amino Transferase 22 Units/L (13-39); BUN/Creatinine Ratio 19 (6-26); Bilirubin,Direct 0.1 mg/dL (0.0-0.2); Bilirubin,Indirect 0.2 mg/dL (0.0-1.0); Bilirubin,Total 0.3 mg/dL (0.3-1.0); Blood Urea Nitrogen 12 mg/dL (6-20); Calcium 9.4 mg/dL (8.6-10.3); Carbon Dioxide 28 mEq/L (23-29); Chloride 101 mEq/L (98-107); Globulin 3.3 g/dL (2.4-3.5); Glucose 74 mg/dL (70-105); Lipase 25 Units/L (11-82); Osmolality,Calculated 286 (280-300); Potassium 4.5 mEq/L (3.5-5.1); Sodium 139 mEq/L (136-145); Troponin I < 0.03 ng/mL (< 0.04); eGFR For African Americans > 60 (> 60); eGFR For Non-African Americans > 60 (> 60)
[2019-09-20] MEDS ORDERED: 0.9 % Sodium Chloride 1,000 ML IVC ONE (22:15)
[2019-09-20] MEDS ORDERED: Isovue-370 500 ML BOTTLE IVP ONE (22:15)
[2019-09-20] MEDS ORDERED: Ondansetron 4 MG/2 ML VIAL IVP ONE (23:36)
[2019-09-21] MEDS ORDERED: Ondansetron 4 MG/2 ML VIAL IVP ONE (00:38)
[2019-09-21] MEDS ORDERED: cefTRIAXone 1,000 MG in 0.9 % Sodium Chloride Mini Bag 100 ML IVPB ONE (01:38)
[2019-09-21] MEDS ORDERED: Vancomycin (wt based) 1,000 MG VIAL IVPB SCH ×2 (02:00→03:00)
[2019-09-21] MEDS ORDERED: Aspirin 325 MG TABLET PO ONE (02:02)
[2019-09-21] MEDS ORDERED: *HR* Dextrose 50 % in Water (Syg) 50 ML SYRINGE IVP PRN (02:02)
[2019-09-21] MEDS ORDERED: Nitroglycerin 0.4 MG TAB.SUBL SL PRN (02:02)
[2019-09-21] MEDS ORDERED: D5% in Water 1,000 ML IVC PRN (02:02)
[2019-09-21] MEDS ORDERED: Dextrose Gel 15 GM/37.5 ML TUBE PO PRN ×2 (02:02)
[2019-09-21] MEDS ORDERED: Nicotine 2 MG GUM BC PRN (02:02)
[2019-09-21] MEDS ORDERED: Naloxone 0.4 MG/ML INJ IVP PRN (02:02)
[2019-09-21] MEDS ORDERED: Albuterol 2.5 MG/3 ML NEBULIZER IH PRN (02:02)
[2019-09-21] MEDS ORDERED: Famotidine 20 MG TABLET PO PRN (02:06)
[2019-09-21] MEDS: Azithromycin 500 MG in 0.9 % Sodium Chloride 250 ML IVPB SCH (02:17)
[2019-09-21] MEDS ORDERED: methylPREDNISolone 125 MG/2 ML VIAL IVP ONE (02:17)
[2019-09-21] MEDS ORDERED: Ondansetron ODT 4 MG TAB.RAPDIS PO PRN (02:32)
[2019-09-21] MEDS: traZODone 50 MG TABLET PO SCH ×2 (03:01→19:42)
[2019-09-21] MEDS: rOPINIRole 0.25 MG TABLET PO SCH ×2 (03:01→19:42)
[2019-09-21] MEDS: Nicotine 14 MG PATCH.TD24 TD SCH (03:02)
[2019-09-21 03:06] LABS: Basophils % 0.3 %; Eosinophils % 0.1 %; Hematocrit 41.8 % (35.3-44.9); Immature Granulocytes % 0.5 % (0-4); Lymphocytes # 0.6 K/mcL (0.6-4.6); Lymphocytes % 7.5 %; Mean Corpuscular HGB Conc 33.5 g/dL (31.6-35.5); Mean Corpuscular Hemoglobin 29.1 pg (28.0-33.3); Mean Corpuscular Volume 86.9 fL (83.0-100.0); Mean Platelet Volume 9.3 fL (9.4-12.4); Monocytes # 0.2 K/mcL (0.0-1.3); Monocytes % 2.7 %; Platelet Count 195 K/mcL (140-400); Red Blood Count 4.81 M/mcL (3.82-4.97); Red Cell Distribution Width 13.8 % (11.5-14.5); Segmented Neutrophils % 88.9 %; White Blood Count 7.9 K/mcL (4.3-11.1)
[2019-09-21 03:19] LABS: Prothrombin Time 11.8 Seconds (9.4-12.1)
[2019-09-21 03:25] LABS: Alanine Aminotransferase 13 Units/L (7-52); Albumin 3.9 g/dL (3.5-5.7); Albumin/Globulin Ratio 1.5 (1.1-2.2); Alkaline Phosphatase 65 Units/L (34-104); Aspartate Amino Transferase 15 Units/L (13-39); BUN/Creatinine Ratio 15 (6-26); Bilirubin,Total 0.4 mg/dL (0.3-1.0); Blood Urea Nitrogen 9 mg/dL (6-20); Calcium 8.3 mg/dL (8.6-10.3); Carbon Dioxide 24 mEq/L (23-29); Chloride 104 mEq/L (98-107); Chol/HDL Ratio 2.3 (0-4.9); Cholesterol 131 mg/dL (< 200); Globulin 2.6 g/dL (2.4-3.5); Glucose 143 mg/dL (70-105); HDL Cholesterol 56 mg/dL (40-59); LDL Cholesterol,Calculated 63 mg/dL (0-99); Magnesium 1.3 mg/dL (1.6-2.6); Osmolality,Calculated 287 (280-300); Phosphorous 2.5 mg/dL (2.7-4.5); Potassium 3.5 mEq/L (3.5-5.1); Sodium 138 mEq/L (136-145); Total Protein 6.5 g/dL (6.4-8.9); Triglycerides 59 mg/dL (< 150); Troponin I < 0.03 ng/mL (< 0.04); eGFR For African Americans > 60 (> 60); eGFR For Non-African Americans > 60 (> 60)
[2019-09-21] MEDS ORDERED: Ipratropium/Albuterol Neb 3 ML IH SCH (05:00)
[2019-09-21] MEDS: *HR* Heparin 5,000 UNIT/ML VIAL SQ SCH ×2 (05:10→17:09)
[2019-09-21] MEDS: *HR* HYDROcodone/Acet 5/325 mg TABLET PO PRN ×2 (05:10→19:41)
[2019-09-21] MEDS ORDERED: 0.9 % Sodium Chloride 1,000 ML IVC SCH (06:30)
[2019-09-21] MEDS: Gabapentin 300 MG CAPSULE PO SCH ×3 (08:06→19:41)
[2019-09-21] MEDS: Insulin LISPRO 300 UNITS/3 ML VIAL SQ SCH ×3 (08:08→17:10)
[2019-09-21 08:09] LABS: Estimated Average Glucose 111 mg/dl
[2019-09-21] MEDS ORDERED: predniSONE 20 MG TABLET PO SCH (09:00)
[2019-09-21] MEDS ORDERED: Nicotine 14 MG PATCH.TD24 TD SCH (09:00)
[2019-09-21] MEDS ORDERED: Aminoglycoside Consult 1 EACH MC ONE (09:13)
[2019-09-21] MEDS: Ipratropium/Albuterol Neb 3 ML IH SCH ×5 (10:25→23:43)
[2019-09-21 10:54] LABS: Bilirubin,Urine Negative (Negative); Blood,Urine Negative (Negative); Clarity,Urine Clear (Clear); Color,Urine Yellow (Yellow); Glucose,Urine (UA) Normal (Normal); Ketones,Urine Trace mg/dL (Negative); Leukocyte Esterase,Urine Negative (Negative); Nitrite,Urine Negative (Negative); Protein,Urine Negative (Neg-Trace); Specific Gravity,Urine 1.028 (1.010-1.025); Urobilinogen,Urine Normal (Normal)
[2019-09-21] MEDS: MethylPREDNISolone 40 MG/ML VIAL IVP SCH ×2 (14:06→19:42)
[2019-09-21 17:39] LABS: Amphetamine Screen,Urine Negative ng/mL (Cutoff=1000); Barbiturate Screen,Urine Negative ng/mL (Cutoff=200); Benzodiazepines Screen,Urine Negative ng/mL (Cutoff=200); Cannabinoid Screen,Urine Negative ng/mL (Cutoff = 50); Cocaine Screen,Urine Negative ng/mL (Cutoff= 300); Opiate Screen,Urine Positive ng/mL (Cutoff=300); Phencyclidine Screen,Urine Negative ng/mL (Cutoff=25)
[2019-09-22] MEDS: Azithromycin 500 MG in 0.9 % Sodium Chloride 250 ML IVPB SCH (02:16)
[2019-09-22] MEDS: Ipratropium/Albuterol Neb 3 ML IH SCH ×5 (03:17→20:13)
[2019-09-22] MEDS: *HR* Heparin 5,000 UNIT/ML VIAL SQ SCH ×2 (05:38→16:59)
[2019-09-22] MEDS: MethylPREDNISolone 40 MG/ML VIAL IVP SCH (05:38)
[2019-09-22] MEDS: *HR* HYDROcodone/Acet 5/325 mg TABLET PO PRN ×2 (05:38→21:55)
[2019-09-22] MEDS ORDERED: predniSONE 20 MG TABLET PO SCH (09:00)
[2019-09-22 09:15] LABS: Hematocrit 36.7 % (35.3-44.9); Mean Corpuscular HGB Conc 33.2 g/dL (31.6-35.5); Mean Corpuscular Hemoglobin 28.8 pg (28.0-33.3); Mean Corpuscular Volume 86.8 fL (83.0-100.0); Mean Platelet Volume 9.8 fL (9.4-12.4); Platelet Count 203 K/mcL (140-400); Red Blood Count 4.23 M/mcL (3.82-4.97); Red Cell Distribution Width 14.1 % (11.5-14.5)
[2019-09-22 09:43] LABS: White Blood Count 12.2 K/mcL (4.3-11.1)
[2019-09-22 09:44] LABS: Hemoglobin 12.2 g/dL (11.5-15.4)
[2019-09-22 09:48] LABS: BUN/Creatinine Ratio 24 (6-26); Blood Urea Nitrogen 11 mg/dL (6-20); Calcium 9.2 mg/dL (8.6-10.3); Carbon Dioxide 27 mEq/L (23-29); Chloride 103 mEq/L (98-107); Glucose 169 mg/dL (70-105); Magnesium 1.9 mg/dL (1.6-2.6); Osmolality,Calculated 287 (280-300); Potassium 4.4 mEq/L (3.5-5.1); Sodium 137 mEq/L (136-145); eGFR For African Americans > 60 (> 60); eGFR For Non-African Americans > 60 (> 60)
[2019-09-22] MEDS: Gabapentin 300 MG CAPSULE PO SCH ×3 (10:11→21:56)
[2019-09-22] MEDS: Aspirin Enteric Coated 81 MG Tablet PO SCH (10:11)
[2019-09-22] MEDS: Nicotine 14 MG PATCH.TD24 TD SCH (10:12)
[2019-09-22] MEDS: cefTRIAXone 1,000 MG in Water for inj. (sterile) 10 ML IVP SCH (10:14)
[2019-09-22] MEDS: Insulin LISPRO 300 UNITS/3 ML VIAL SQ SCH ×3 (10:14→17:00)
[2019-09-22 10:33] LABS: Lymphocytes # 1.2 K/mcL (0.6-4.6); Neutrophils # 10.5 K/mcL (1.6-8.9)
[2019-09-22 10:35] LABS: Platelet Estimate Normal (Normal)
[2019-09-22] MEDS: predniSONE 20 MG TABLET PO SCH (16:59)
[2019-09-22] MEDS: traZODone 50 MG TABLET PO SCH (21:55)
[2019-09-22] MEDS: rOPINIRole 0.25 MG TABLET PO SCH (21:55)
[2019-09-22] MEDS: Levalbuterol Neb 1.25 MG/3 ML IH SCH (23:18)
[2019-09-23] MEDS ORDERED: Ipratropium/Albuterol Neb 3 ML IH SCH
[2019-09-23] MEDS: Levalbuterol Neb 1.25 MG/3 ML IH SCH ×4 (04:17→22:15)
[2019-09-23 04:43] LABS: Basophils % 0.1 %; Hemoglobin 11.6 g/dL (11.5-15.4); Immature Granulocytes % 1.8 % (0-4); Lymphocytes # 0.8 K/mcL (0.6-4.6); Lymphocytes % 8.2 %; Mean Corpuscular HGB Conc 33.1 g/dL (31.6-35.5); Mean Corpuscular Hemoglobin 28.9 pg (28.0-33.3); Mean Corpuscular Volume 87.3 fL (83.0-100.0); Mean Platelet Volume 9.7 fL (9.4-12.4); Monocytes # 0.2 K/mcL (0.0-1.3); Monocytes % 2.4 %; Neutrophils # 8.7 K/mcL (1.6-8.9); Platelet Count 226 K/mcL (140-400); Red Blood Count 4.01 M/mcL (3.82-4.97); Red Cell Distribution Width 14.4 % (11.5-14.5); Segmented Neutrophils % 87.5 %
[2019-09-23 05:04] LABS: BUN/Creatinine Ratio 19 (6-26); Blood Urea Nitrogen 9 mg/dL (6-20); Calcium 8.9 mg/dL (8.6-10.3); Carbon Dioxide 27 mEq/L (23-29); Chloride 107 mEq/L (98-107); Glucose 213 mg/dL (70-105); Magnesium 1.8 mg/dL (1.6-2.6); Osmolality,Calculated 293 (280-300); Potassium 4.5 mEq/L (3.5-5.1); Sodium 139 mEq/L (136-145); eGFR For African Americans > 60 (> 60); eGFR For Non-African Americans > 60 (> 60)
[2019-09-23] MEDS: *HR* HYDROcodone/Acet 5/325 mg TABLET PO PRN ×2 (06:33→20:27)
[2019-09-23] MEDS: *HR* Heparin 5,000 UNIT/ML VIAL SQ SCH ×2 (06:34→17:05)
[2019-09-23] MEDS: Azithromycin 250 MG TABLET PO SCH (07:27)
[2019-09-23] MEDS: cefTRIAXone 1,000 MG in Water for inj. (sterile) 10 ML IVP SCH (07:28)
[2019-09-23] MEDS: Gabapentin 300 MG CAPSULE PO SCH ×3 (07:28→20:21)
[2019-09-23] MEDS: predniSONE 20 MG TABLET PO SCH (07:28)
[2019-09-23] MEDS: Aspirin Enteric Coated 81 MG Tablet PO SCH (07:28)
[2019-09-23] MEDS: Nicotine 14 MG PATCH.TD24 TD SCH (07:29)
[2019-09-23] MEDS: Insulin LISPRO 300 UNITS/3 ML VIAL SQ SCH ×3 (07:33→17:05)
[2019-09-23] MEDS: rOPINIRole 0.25 MG TABLET PO SCH (20:21)
[2019-09-23] MEDS: traZODone 50 MG TABLET PO SCH (20:21)
[2019-09-24 03:59] LABS: BUN/Creatinine Ratio 28 (6-26); Blood Urea Nitrogen 15 mg/dL (6-20); Calcium 8.4 mg/dL (8.6-10.3); Carbon Dioxide 25 mEq/L (23-29); Chloride 108 mEq/L (98-107); Glucose 111 mg/dL (70-105); Osmolality,Calculated 288 (280-300); Potassium 4.2 mEq/L (3.5-5.1); Sodium 138 mEq/L (136-145); eGFR For African Americans > 60 (> 60); eGFR For Non-African Americans > 60 (> 60)
[2019-09-24] MEDS: Levalbuterol Neb 1.25 MG/3 ML IH SCH ×2 (04:16→08:58)
[2019-09-24] MEDS: *HR* Heparin 5,000 UNIT/ML VIAL SQ SCH (05:55)
[2019-09-24] MEDS ORDERED: Benzonatate 100 MG CAPSULE PO PRN (06:10)
[2019-09-24 07:25] VITALS: BP 128/86
[2019-09-24] MEDS: Insulin LISPRO 300 UNITS/3 ML VIAL SQ SCH (07:30)
[2019-09-24] MEDS: Azithromycin 250 MG TABLET PO SCH (07:33)
[2019-09-24] MEDS: Aspirin Enteric Coated 81 MG Tablet PO SCH (07:33)
[2019-09-24] MEDS: Gabapentin 300 MG CAPSULE PO SCH (07:34)
[2019-09-24] MEDS: cefTRIAXone 1,000 MG in Water for inj. (sterile) 10 ML IVP SCH (07:34)
[2019-09-24] MEDS: Nicotine 14 MG PATCH.TD24 TD SCH (07:34)
[2019-09-24] MEDS: predniSONE 20 MG TABLET PO SCH (07:34)
[2019-09-24] MEDS: *HR* HYDROcodone/Acet 5/325 mg TABLET PO PRN (07:39)
== END 2019-09-24 10:20 | disposition home or self-care (01) | DRG 871 ==
LOC: EMEROOARM 20:30 → 2ANU 20:30 → SUATTDRO 09-21 01:44 → 2ANU 09-21 02:22 → SUATTDRO 09-21 14:39 → 2ANU 09-22 07:05
PROVIDERS: ADMIT Internal Medicine; ATTEND Internal Medicine